=== PATIENT | female | born 1950 | race Caucasian/White ===

== ENCOUNTER 2017-02-11 13:02 | Inpatient (IN) ==
--- NOTE | 2017-02-10 21:40 | Discharge Summary ---
<Ivelisse Washington L - Last Filed: 02/10/17 21:35> - Discharge Diagnosis (1) Arthritis of knee, right Priority: Primary Status: Acute (2) HTN (hypertension) Priority: Secondary Status: Chronic Qualifiers: Hypertension type: essential hypertension Qualified Code(s): I10 - Essential (primary) hypertension (3) Chronic pain Priority: Secondary Status: Chronic Comments: Will Continue Percocet 7.5/325 TID - LD 02/02/17 #90 Qualifiers: Chronic pain type: chronic pain syndrome Qualified Code(s): G89.4 - Chronic pain syndrome (4) Fibromyalgia Priority: Secondary Status: Chronic (5) HLD (hyperlipidemia) Priority: Secondary Status: Chronic Qualifiers: Hyperlipidemia type: unspecified Qualified Code(s): E78.5 - Hyperlipidemia , unspecified - Discharge Medications Home Medications: Escitalopram [Lexapro] 20 mg PO DAILY 11/08/15 [History] Lisinopril [Zestril] 20 mg PO DAILY 11/08/15 [History] Calcium Carbonate/Vitamin D3 [Calcium 600-Vit D3 200 Tablet] 1 tab PO DAILY 09/16 [History] Diclofenac Sodium [Voltaren] 1 appl TP QID PRN 10/11/16 [History] Lansoprazole [Prevacid] 30 mg PO DAILY 10/11/16 [History] Lidocaine Patch [Lidoderm 5% patch] 1 each TP DAILY PRN 10/11/16 [History] Meloxicam 15 mg PO DAILY 10/11/16 [History] Wig054/Ferrous Fumarate/FA [Gs Vitamins Tablet] 1 tab PO DAILY [History] Ropinirole HCl [Requip] 0.5 mg PO HS 10/11/16 [History] Sucralfate [Carafate] 1 gm PO BID 10/11/16 [History] Aspirin Enteric Coated [Aspirin EC] 325 mg PO DAILY #21 tablet. 02/10/17 [Rx] OxyCODONE Immed Rel [Roxicodone 5 MG] 5 mg PO Q8HR PRN #21 tablet 02/10/17 [Rx] Celecoxib [Celebrex] 200 mg PO DAILY 02/11/17 [History] Ondansetron [Zofran] 4 mg PO Q8HR PRN 02/11/17 [History] OxyCODONE/APAP 7.5/325 [Percocet 7.5/325 MG] 1 each PO Q6HR PRN 02/11/17 [ History] Allergies/Adverse Reactions: Allergies meperidine [From Demerol] Adverse Reaction (Verified 02/11/17 14:02) Nausea states ok when taken with phenergan Primary care physician: Abi Bustillo, - Patient Status Disposition: Home, Self-Care Condition: Good - Discharge Instructions Follow Up With: Moe Landrum MD [Partnered Physician] - 03/12/17 10:20 am Abi Bustillo MD [Primary Care Provider] - 02/28/17 3:45 pm Ivelisse Washington PAC [Physician Archivist] - 02/21/17 3:00 pm - Hospital Course Hospital course: Ms. Reyes is a 66 year old female - Time Spent with Patient Total time spent providing and/or coordinating discharge services: <Moe Landrum - Last Filed: 02/13/17 06:34> Date of Encounter: 02/13/17 Time of Encounter: 06:33 - Discharge Diagnosis (1) Arthritis of knee, right Priority: Primary Status: Acute (2) Chronic pain Priority: Secondary Status: Chronic Qualifiers: Chronic pain type: chronic pain syndrome Qualified Code(s): G89.4 - Chronic pain syndrome (3) Fibromyalgia Priority: Secondary Status: Chronic (4) HLD (hyperlipidemia) Priority: Secondary Status: Chronic Qualifiers: Hyperlipidemia type: unspecified Qualified Code(s): E78.5 - Hyperlipidemia , unspecified (5) HTN (hypertension) Priority: Secondary Status: Chronic Qualifiers: Hypertension type: essential hypertension Qualified Code(s): I10 - Essential (primary) hypertension (6) Acute blood loss anemia Priority: Primary Status: Acute Primary care physician: Abi Bustillo, - Patient Status Functional capacity at discharge: uses cane/walker Overall status at discharge: patient is progressing back to baseline - Hospital Course Hospital course: Ms. Reyes is a 66 year old female uneventful post op course antibiotics and PT dc on asa dvt prophylaxis, hb 7.6 recieved 1 unit prbc prior to dc - Time Spent with Patient Total time spent providing and/or coordinating discharge services:
[2017-02-11] MEDS ORDERED: CeFAZolin Pre 2,000 MG/100 ML 2,000 MG/100 ML BAG IVPB ONE (13:31)
[2017-02-11] MEDS ORDERED: Albuterol 2.5 MG/3 ML NEBULIZER IH ONE (13:31)
[2017-02-11] MEDS ORDERED: Famotidine 20 MG/2 ML VIAL IVP ONE (13:32)
[2017-02-11] MEDS ORDERED: *HR* Midazolam HCl 2 MG/2 ML VIAL ONE (13:34)
[2017-02-11] MEDS ORDERED: *HR* FentaNYL (PF) 100 MCG/2 ML VIAL ONE (13:34)
[2017-02-11] MEDS ORDERED: *HR* Propofol 200 MG/20 ML VIAL IVP ONE ×2 (13:35→15:31)
[2017-02-11] MEDS ORDERED: Lidocaine -MPF 2% 2 ML VIAL ONE (13:36)
[2017-02-11] MEDS ORDERED: Ringers Solution, Lactated 1,000 ML IVC SCH ×2 (13:45→17:50)
--- NOTE | 2017-02-11 13:46 | History & Physical Report ---
Date of Encounter: 02/11/17 Time of Encounter: 13:46 24 Hour HP Update - Instructions Instructions: If the History and Physical is less than 30 days old and was completed prior to A.M. admission and or procedure and has NOT been updated on calendar day of procedure please complete this update prior to performing procedure. - Update Patient reports changes in Medical Condition: No Changes in assessment/condition: No Changes in Medication: No Preop tests/diagnostics Reviewed: Yes Surgery Remains Indicated: Yes Consent for Planned Operative Procedure(s) Verified: Yes - Pre-Operative Checklist Preoperative Checklist Indicated: No Prophylactic Antibiotic Ordered: Yes Is VTE Prophylaxis Indicated?: Yes
--- NOTE | 2017-02-11 14:08 | Anesthesia Evaluation PreOp ---
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: Denies Any Significant HX Other Medical History: Denies Any Significant HX Anesthesia History: No Prior Anesthetic Complications, Problems (Had bronchospasm 8 hours post op) : No Alcohol Use: none Drug use: none Medications and Allergies Escitalopram [Lexapro] 20 mg PO DAILY 11/08/15 [History] Lisinopril [Zestril] 20 mg PO DAILY 11/08/15 [History] Ondansetron [Zofran] 4 mg PO Q8HR #16 tablet 11/08/15 [Rx] Calcium Carbonate/Vitamin D3 [Calcium 600-Vit D3 200 Tablet] 1 tab PO DAILY 09/16 [History] Diclofenac Sodium [Voltaren] 1 appl TP QID PRN 10/11/16 [History] Lansoprazole [Prevacid] 30 mg PO DAILY 10/11/16 [History] Lidocaine Patch [Lidoderm 5% patch] 1 each TP DAILY PRN 10/11/16 [History] Meloxicam 15 mg PO DAILY 10/11/16 [History] Lep129/Ferrous Fumarate/FA [Gs Vitamins Tablet] 1 tab PO DAILY [History] Ropinirole HCl [Requip] 0.5 mg PO HS 10/11/16 [History] Sucralfate [Carafate] 1 gm PO TID 10/11/16 [History] Aspirin Enteric Coated [Aspirin EC] 325 mg PO DAILY #21 tablet. 02/10/17 [Rx] OxyCODONE Immed Rel [Roxicodone 5 MG] 5 mg PO Q8HR PRN #21 tablet 02/10/17 [Rx] Allergies meperidine [From Demerol] Adverse Reaction (Verified 02/11/17 14:02) Nausea states ok when taken with phenergan - Meds/Allergy Pre-op Review Medications Reviewed: Yes Allergies Reviewed: Yes Beta Blockers on Current Med List: No Anesthesia Results - Labs Laboratory Tests 01/28/17 01/28/17 13:46 13:46 Hgb 10.2 L Hct 32.8 L Plt Count 231 Sodium 142 Potassium 4.2 BUN 17 Creatinine 0.71 - Imaging EKG: report reviewed (SR) Anesthesia Exam O2 Sat Height 1.7 m Height 1.7 m Height 1.7 m Weight 81.193 kg Weight 81.193 kg Weight 81.193 kg O2 Sat by Pulse Oximetry 99 O2 Sat by Pulse Oximetry 99 Vital Signs Temp Pulse Resp BP Pulse Ox 97.9 F 69 18 136/81 99 02/11/17 13:24 02/11/17 13:24 02/11/17 13:24 02/11/17 13:24 02/11/17 13:24 Height: 5'7 Weight: 179 lbs NPO (# of Hours): MN Pain Scale: 0 - HEENT Pupil (Motor): Pupils equal, EOMI Mallampati: II Teeth: Normal Oral Opening: Greater than 3 - GAS ENGINE PERFORMANCE ENGINEER LOC: Oriented GAS ENGINE PERFORMANCE ENGINEER Motor: Normal RUE, Normal LUE, Normal RLE, Normal LLE, Normal Face GAS ENGINE PERFORMANCE ENGINEER Sensory: Normal: RUE, LUE, RLE, LLE, Face - Cardiac Rhythm: Regular Murmur: None JVD: No Carotid Bruit: No - Pulmonary Breath Sounds: bilateral Clear Respiratory Effort: Symmetrical Anesthesia Assess/Plan ASA Score: 2 Modified Dover Scale for Level of Consciousness: Cooperative, oriented, and tranquil Anesthetic Plan: General, Regional (Discussed GA and RA, agrees to proceed) Monitoring Plan: Standard Monitors Recovery Plan: PACU
[2017-02-11] MEDS ORDERED: ROPIVACAINE HCL/PF 0.5% 30 ML VIAL ONE (14:15)
[2017-02-11] MEDS ORDERED: Tetracaine/PF 20 MG/2 ML AMPUL SPINA ONE (14:16)
[2017-02-11] MEDS ORDERED: *HR* Promethazine 25 MG/ML VIAL IVP PRN (14:37)
--- NOTE | 2017-02-11 14:37 | Anesthesia Procedures ---
Date of Encounter: 02/11/17 Time of Encounter: 14:35 Procedures: Anesthesia - Nerve Block Procedure Date: 02/11/17 Time: 14:35 Allergies/Adv Reactions: demerol Pre-op Diagnosis: right knee OA Surgical Procedure: right TKA Checklist: Correct Patient Identifier, Correct procedure, History checked Correct side: Right Blood Thinner: No Monitor Applied: EKG, BP, Pulse Oximetry Supplemental Oxygen via Nasal Cannula (L/min): 2 Sedation: Versed (mg): 2 Sedation: Fentanyl (mcg): 100 Indication: Post Op Analgesia Pre-op Neuro Deficits: No Block Type: Femoral, Other (ipack) Catheter placed: No Sterile Technique: Yes Ultrasound used: Yes Anatomy identified: Yes Visual spread of Local: Yes Neuro Stimulation: Yes (femoral only) Nerve Stimulator Range: 0.2 - 0.4 mA Blood on Needle Aspiration: No Smooth Injection of Local: Yes Pain with Injection of Local: No Prep: Chlorhexadine Needle: 22 x 50 mm Stimuplex, 21 x 100 mm Stimuplex Local: Tetracaine, Other (0.5% bupivacaine) Volume (cc): 60 Number of Attempts: 1 Complications: None/effective block Vitals: Vital Signs/O2 Sat/Glucose, Most Recent Temp Pulse Resp BP Pulse Ox 97.9 F 79 14 141/72 100 02/11/17 13:53 02/11/17 14:34 02/11/17 14:34 02/11/17 14:34 02/11/17 14:34
[2017-02-11] MEDS ORDERED: Ondansetron 4 MG/2 ML VIAL ONE (15:15)
[2017-02-11] MEDS ORDERED: Dexamethasone 4 MG/ML VIAL ONE (15:15)
--- NOTE | 2017-02-11 15:48 | Orthopedic Operative Note ---
Date of procedure: 02/11/17 Pre-op diagnosis: Right knee arthritis Post-op diagnosis: same Procedure: Procedure: Right Total knee replacement Estimated blood loss: 200 cc Hardware: Arthrex Femur: 4 Tibia: 3 PS insert: 10 Patella: 34 Exam Under anesthesia: Full flexion, full extension, no instability Procedural Notes: Grade 4 arthritic changes medial compartment patellofemoral joint. Osteoporotic bone Operative procedure: The patient was brought to the operating room and placed on the operating room table. After general anesthesia was administered the operative knee was examined. Findings were noted in the exam under anesthesia. The operative extremity was prepped and draped in sterile surgical fashion. The patient received IV antibiotics prior to skin incision. A standard midline incision was made centered over the patella. The incision was made through the skin and subcutaneous tissue. A medial parapatellar tendon approach was performed. Care was taken to preserve tissue along the medial aspect of the patella. And to protect the patella tendon. The deep MCL was released off the medial tibia. The infra patella fat pad was excised. Knee was brought into flexion. Patient noted to have grade 4 arthritic changes medial compartment patellofemoral joint. The entry hole was made for the intramedullary femoral guide. The guide was seated in 6 degrees of valgus. Anterior cut was made followed by the distal cut. The ACL the PCL the medial and the lateral menisci were excised. The tibia was subluxed forward. The entry hole was made for the intramedullary tibial guide. Guide was seated to resect 2 mm off the more abnormal side. The knee was brought into flexion the distal femur was sized. Sized to a 4. The femoral guide was seated, the anterior cut was made followed by the posterior condylar cut, followed by the chamfer cuts. The finishing guide was seated the box cut was made and the lug holes were drilled. The tibia was sized to a 3, patient noted to have osteoporotic bone, the tibial tray was seated and prepared with the large drill followed by the fin cutter. Trial reduction revealed full extension no varus valgus instability with the appropriate 10 PS Muna. The patella was everted and cut was made at the level of the insertion of the quadriceps and patella tendon. The patella was sized 34 the guide was seated and the lug holes are drilled. Trial reduction revealed excellent patella tracking. All trial components were removed all bony surfaces were irrigated. The tibia was cemented first followed by the femur. The 10 PS Muna was seated and the knee was brought into full extension. The patella was cemented and held in place with the patellar holding clamp. After the cement had hardened, the knee sat for 2 minutes with a Betadine saline solution. The knee was then irrigated out with 2 L of pulse irrigation. The extensor mechanism was closed with #2 FiberWire suture and #2 PDS suture. The subcutaneous tissue was then irrigated and closed deep with #1 PDS suture superficially with 0 PDS suture and skin was closed with skin kim. The patient was then placed in a sterile dressing and a postoperative brace extubated and transferred to recovery room in stable condition. Anesthesia: MIKEY Surgeon: Moe Landrum Manager Room: Ivelisse Washington Condition: stable Disposition: PACU
[2017-02-11] MEDS ORDERED: Ketorolac 30 MG/ML VIAL ONE (15:57)
[2017-02-11] MEDS ORDERED: *HR* Labetalol 20 MG/4 ML SYRINGE IVP ONE (16:02)
[2017-02-11] MEDS: *HR* HYDROmorphone (PF) 1 MG/ML SYRINGE IVP PRN ×4 (16:28→20:16)
[2017-02-11] MEDS ORDERED: *HR* Morphine 10 MG/ML VIAL ONE ×2 (16:35→16:43)
[2017-02-11] MEDS ORDERED: *HR* HYDROmorphone 2 MG/ML SYRINGE ONE (16:36)
[2017-02-11 16:44] LABS: Hemoglobin 9.2 g/dL (11.5-15.4)
[2017-02-11] MEDS ORDERED: *HR* HYDROmorphone (PF) 1 MG/ML SYRINGE ONE (16:48)
--- NOTE | 2017-02-11 17:46 | Anesthesia Evaluation Post Op ---
Date of Encounter: 02/11/17 Time of Encounter: 17:45 - Vital Signs Vital Signs: Vital Signs/O2 Sat, Most Current Temp Pulse Resp BP Pulse Ox 97.8 F 76 16 137/63 99 02/11/17 17:15 02/11/17 17:35 02/11/17 17:35 02/11/17 17:35 02/11/17 17:35 - Lungs Lungs: Clear Ascult./Percussion - Airway Airway: Non-obstructed - Cardiovascular Regular Rate - Mental Status Mental Status: Alert & Oriented, Answers Appropriately - Pain Pain Scale: 0 Pain Scale used: Numeric (1 - 10) - Nausea Vomiting Nausea Vomiting: Not Present - Hydration Hydration: Ice chips, Has not voided - Discharge PostOp Status: Transfer Patient to floor
[2017-02-11] MEDS ORDERED: Acetaminophen 325 MG TABLET PO PRN (17:50)
[2017-02-11] MEDS ORDERED: Temazepam 15 MG CAPSULE PO PRN (17:50)
[2017-02-11] MEDS ORDERED: ceFAZolin 2,000 MG in D5% in Water 100 ML IVPB SCH (17:50)
[2017-02-11] MEDS ORDERED: *HR* OxyCODONE Immed Rel 5 MG TABLET PO PRN (17:50)
[2017-02-11] MEDS ORDERED: MOM Conc 10 ML UD.LIQ PO PRN (17:50)
[2017-02-11] MEDS ORDERED: Ondansetron 4 MG/2 ML VIAL IVP PRN (17:50)
[2017-02-11] MEDS ORDERED: Naloxone 0.4 MG/ML INJ IVP PRN (17:50)
[2017-02-11] MEDS ORDERED: Sennosides 8.6 MG TABLET PO PRN (17:50)
[2017-02-11] MEDS ORDERED: *HR* Enoxaparin 30 MG/0.3 ML SYRINGE SQ SCH (18:00)
[2017-02-11] MEDS: *HR* OxyCODONE Immed Rel 5 MG TABLET PO PRN ×2 (18:29→23:32)
[2017-02-11] MEDS: *HR* Enoxaparin 30 MG/0.3 ML SYRINGE SQ SCH (18:29)
[2017-02-11] MEDS: rOPINIRole 0.25 MG TABLET PO SCH (20:15)
[2017-02-11] MEDS: ceFAZolin 2,000 MG in D5% in Water 100 ML IVPB SCH (20:15)
[2017-02-11] MEDS: Sucralfate 1 GM TABLET PO SCH (20:16)
[2017-02-12] MEDS: *HR* HYDROmorphone (PF) 1 MG/ML SYRINGE IVP PRN ×8 (02:59→23:32)
[2017-02-12 05:09] LABS: Hematocrit 27.8 % (35.3-44.9); Hemoglobin 8.5 g/dL (11.5-15.4)
[2017-02-12 05:21] LABS: BUN/Creatinine Ratio 30 (6-26); Blood Urea Nitrogen 20 mg/dL (7-20); Calcium 8.6 mg/dL (8.6-10.8); Carbon Dioxide 25 mEq/L (19-29); Chloride 105 mEq/L (98-109); Glucose 125 mg/dL (70-99); Osmolality,Calculated 290 (280-300); Potassium 4.5 mEq/L (3.5-4.5); Sodium 138 mEq/L (136-145); eGFR For African Americans > 60 (> 60); eGFR For Non-African Americans > 60 (> 60)
[2017-02-12] MEDS: *HR* Enoxaparin 30 MG/0.3 ML SYRINGE SQ SCH ×2 (05:40→17:23)
[2017-02-12] MEDS: *HR* OxyCODONE Immed Rel 5 MG TABLET PO PRN ×5 (05:43→20:27)
[2017-02-12] MEDS: ceFAZolin 2,000 MG in D5% in Water 100 ML IVPB SCH (05:44)
--- NOTE | 2017-02-12 06:40 | Orthopedics Progress Note ---
Date of Encounter: 02/12/17 Time of Encounter: 06:39 - Assessment and Plan (1) Arthritis of knee, right Current Visit: Yes Status: Acute (2) Chronic pain Current Visit: Yes Status: Chronic Qualifiers: Chronic pain type: chronic pain syndrome Qualified Code(s): G89.4 - Chronic pain syndrome (3) Fibromyalgia Current Visit: Yes Status: Chronic (4) HLD (hyperlipidemia) Current Visit: Yes Status: Chronic Qualifiers: Hyperlipidemia type: unspecified Qualified Code(s): E78.5 - Hyperlipidemia , unspecified (5) HTN (hypertension) Current Visit: Yes Status: Chronic Qualifiers: Hypertension type: essential hypertension Qualified Code(s): I10 - Essential (primary) hypertension Subjective Interval history: patient doing well no complaints afvss operative extremity dressing c/d/i calves nt NVI continue with postop care hct 27 Objective Vital signs: Vital Signs Temp Pulse Resp BP Pulse Ox 02/12/17 04:10 98.4 F 66 18 101/60 94 L 02/11/17 23:22 97.7 F 65 104/62 100 02/11/17 21:00 97.8 F 70 15 99/65 95 02/11/17 20:05 98.2 F 78 15 121/76 94 L 02/11/17 19:01 97.7 F 85 12 122/74 96 02/11/17 18:33 97.7 F 89 13 113/43 96 02/11/17 17:57 95 02/11/17 17:50 97.7 F 85 14 131/71 98 02/11/17 17:35 76 16 137/63 99 02/11/17 17:25 82 16 134/79 99 02/11/17 17:15 97.8 F 62 16 123/64 100 02/11/17 17:05 72 20 125/61 100 02/11/17 16:55 65 20 150/72 99 02/11/17 16:45 97.6 F 80 20 137/89 97 02/11/17 16:35 86 20 138/87 95 02/11/17 16:25 85 20 144/83 92 L 02/11/17 16:15 97.8 F 66 16 151/78 92 L 02/11/17 14:50 79 130/67 100 02/11/17 14:34 79 14 141/72 100 02/11/17 14:22 70 16 130/72 98 02/11/17 13:53 97.9 F 69 18 136/81 99 02/11/17 13:24 97.9 F 69 18 136/81 99 Intake and Output 02/11/17 02/11/17 02/12/17 15:59 23:59 07:59 Intake Total 100 / 100 Output Total 300 / 300 300 / 300 Balance -200 / -200 -300 / -300 Intake: IV Fluids 100 / 100 Ancef 2,000 MG In 100 / 100 Dextrose 5% 100 ML @ 200 mls/hr IVPB Q8H [facility] Rx#: [id number] Output: Urine 300 / 300 Estimated Blood Loss 300 / 300 Other: Weight 81.193 kg - Labs CBC & BMP: 02/12/17 04:43 02/12/17 04:43 Labs: Abnormal lab results Hgb 8.5 g/dL (11.5-15.4) L 02/12/17 04:43 Hct 27.8 % (35.3-44.9) L 02/12/17 04:43 BUN/Creatinine Ratio 30 (6-26) H 02/12/17 04:43 Glucose 125 mg/dL (70-99) H 02/12/17 04:43 - VTE Documentation of Mechanical Device: Venous foot pump, device Consult Discharge Plan - Plan Referrals: Abi Bustillo MD [Primary Care Provider] -
[2017-02-12] MEDS: Sucralfate 1 GM TABLET PO SCH ×2 (08:48→20:27)
[2017-02-12] MEDS: Prenatal Vit/FA 1 EACH TABLET PO SCH (08:48)
[2017-02-12] MEDS: CALCIUM CARBONATE PO SCH (08:49)
[2017-02-12] MEDS: Lisinopril 20 MG TABLET PO SCH (08:49)
[2017-02-12] MEDS: Celecoxib 200 MG CAPSULE PO SCH (08:49)
[2017-02-12] MEDS: VITAMIN D3 PO SCH (08:49)
[2017-02-12] MEDS: rOPINIRole 0.25 MG TABLET PO SCH (20:27)
[2017-02-13] MEDS: *HR* OxyCODONE Immed Rel 5 MG TABLET PO PRN ×4 (00:38→13:31)
[2017-02-13] MEDS: *HR* HYDROmorphone (PF) 1 MG/ML SYRINGE IVP PRN ×3 (02:34→08:14)
[2017-02-13] MEDS: *HR* Enoxaparin 30 MG/0.3 ML SYRINGE SQ SCH (06:06)
[2017-02-13 06:26] LABS: Hematocrit 24.5 % (35.3-44.9); Hemoglobin 7.6 g/dL (11.5-15.4)
[2017-02-13] MEDS ORDERED: Furosemide 20 MG/2 ML VIAL IVP ONE (06:33)
--- NOTE | 2017-02-13 06:35 | Orthopedics Progress Note ---
Date of Encounter: 02/13/17 Time of Encounter: 06:34 - Assessment and Plan (1) Arthritis of knee, right Current Visit: Yes Status: Acute (2) Chronic pain Current Visit: Yes Status: Chronic Qualifiers: Chronic pain type: chronic pain syndrome Qualified Code(s): G89.4 - Chronic pain syndrome (3) Fibromyalgia Current Visit: Yes Status: Chronic (4) HLD (hyperlipidemia) Current Visit: Yes Status: Chronic Qualifiers: Hyperlipidemia type: unspecified Qualified Code(s): E78.5 - Hyperlipidemia , unspecified (5) HTN (hypertension) Current Visit: Yes Status: Chronic Qualifiers: Hypertension type: essential hypertension Qualified Code(s): I10 - Essential (primary) hypertension (6) Acute blood loss anemia Current Visit: Yes Status: Acute Subjective Interval history: patient doing well no complaints afvss operative extremity dressing c/d/i calves nt NVI continue with postop care hct 24 1 unit prbc then dc home Objective Vital signs: Vital Signs Temp Pulse Resp BP Pulse Ox 02/13/17 04:00 99.5 F 93 17 126/71 93 L 02/12/17 23:49 99.7 F H 97 17 114/65 95 02/12/17 19:23 99.8 F H 93 15 124/65 96 02/12/17 14:44 99.6 F 83 18 109/60 96 02/12/17 11:26 98.8 F 65 16 92/53 97 02/12/17 06:36 98.8 F 80 18 107/67 95 Intake and Output 02/12/17 02/12/17 02/13/17 15:59 23:59 07:59 Intake Total 200 / 200 100 / 100 Output Total 400 / 400 600 / 600 Balance -200 / -200 -500 / -500 Intake: Oral 200 / 200 100 / 100 Output: Urine 400 / 400 600 / 600 Other: Meal Lunch Dinner Percent of Meal Consumed 50% 25% - Labs CBC & BMP: 02/13/17 05:55 02/12/17 04:43 Labs: Abnormal lab results Hgb 7.6 g/dL (11.5-15.4) L 02/13/17 05:55 Hct 24.5 % (35.3-44.9) L 02/13/17 05:55 BUN/Creatinine Ratio 30 (6-26) H 02/12/17 04:43 Glucose 125 mg/dL (70-99) H 02/12/17 04:43 - VTE Documentation of Mechanical Device: Venous foot pump, device Consult Discharge Plan - Plan Referrals: Moe Landrum MD [Partnered Physician] - 03/12/17 10:20 am Abi Bustillo MD [Primary Care Provider] - 02/28/17 3:45 pm Ivelisse Washington, PAC [Physician Industrial Ecologist] - 02/21/17 3:00 pm
[2017-02-13 06:42] LABS: BUN/Creatinine Ratio 25 (6-26); Blood Urea Nitrogen 15 mg/dL (7-20); Calcium 8.3 mg/dL (8.6-10.8); Carbon Dioxide 27 mEq/L (19-29); Chloride 103 mEq/L (98-109); Glucose 103 mg/dL (70-99); Osmolality,Calculated 285 (280-300); Potassium 3.8 mEq/L (3.5-4.5); Sodium 137 mEq/L (136-145); eGFR For African Americans > 60 (> 60); eGFR For Non-African Americans > 60 (> 60)
[2017-02-13] MEDS ORDERED: FLU VACC QS2016-17 36MOS UP/PF 0.5 ML SYRINGE IM ONE (08:18)
[2017-02-13] MEDS ORDERED: 0.9 % Sodium Chloride 250 ML ONE (08:41)
[2017-02-13] MEDS: Prenatal Vit/FA 1 EACH TABLET PO SCH (10:00)
[2017-02-13] MEDS: Lisinopril 20 MG TABLET PO SCH (10:00)
[2017-02-13] MEDS: Sucralfate 1 GM TABLET PO SCH (10:00)
[2017-02-13] MEDS: Celecoxib 200 MG CAPSULE PO SCH (10:00)
[2017-02-13] MEDS: VITAMIN D3 PO SCH (10:11)
[2017-02-13] MEDS: CALCIUM CARBONATE PO SCH (10:11)
[2017-02-13 12:28] VITALS: BP 124/64
== END 2017-02-13 16:35 | disposition home or self-care (01) | DRG 470 ==
LOC: SAMDAY 13:02 → 3NENU 17:40
PROVIDERS: ADMIT Orthopaedic Surgery; ATTEND Orthopaedic Surgery

== ENCOUNTER 2017-04-27 05:39 | Inpatient (IN) ==
--- NOTE | 2017-04-27 07:08 | Orthopedic Consult Note ---
Date of Encounter: 04/27/17 Time of Encounter: 07:06 History of Present Illness HPI: Ms. Reyes is a 66 year old female Patient is well-known to me, had a knee manipulation yesterday with a femoral block. Patient's manipulation was uneventful and she was discharged from same day surgery. Patient reports that her foot was still numb and the block was still working when she got this morning at about 1:30 AM. Patient states that she felt the knee give and she rotated, she did not have her brace on. Resulting in significant pain. Patient seen in particular with a long oblique fracture of the right distal femur. Physical exam Alert and oriented 3 No evidence of head trauma Right lower extremity Neurovascular intact Decreased range of motion secondary to pain X-rays show a long oblique fracture right distal femur. Recommendation open reduction internal fixation right femur. Plan is for surgery first case tomorrow morning. We discussed the risks benefits as well as recovery. Past Med Surg Social Fam HX - Past Medical History Medical history: GERD, hyperlipidemia, hypertension, other Psychiatric history: anxiety, depression - Past Surgical History Surgical History: appendectomy, cholecystectomy, hip replacement, knee replacement - Social History Smoking Status: Never smoker Smokeless Tobacco Status: No Alcohol use: none Drug use: none - Family History Mother Hx Family Cancer: Yes Medications and Allergies Escitalopram [Lexapro] 20 mg PO DAILY 11/08/15 [History] Lisinopril [Zestril] 20 mg PO DAILY 11/08/15 [History] Calcium Carbonate/Vitamin D3 [Calcium 600-Vit D3 200 Tablet] 1 tab PO DAILY 09/16 [History] Diclofenac Sodium [Voltaren] 1 appl TP QID PRN 10/11/16 [History] Lansoprazole [Prevacid] 30 mg PO DAILY 10/11/16 [History] Lidocaine Patch [Lidoderm 5% patch] 1 each TP DAILY PRN 10/11/16 [History] Meloxicam 15 mg PO DAILY 10/11/16 [History] Uzw977/Ferrous Fumarate/FA [Gs Vitamins Tablet] 1 tab PO DAILY [History] Ropinirole HCl [Requip] 0.5 mg PO HS 10/11/16 [History] Sucralfate [Carafate] 1 gm PO BID 10/11/16 [History] Celecoxib [Celebrex] 200 mg PO DAILY 02/11/17 [History] Ondansetron [Zofran] 4 mg PO Q8HR PRN 02/11/17 [History] OxyCODONE Immed Rel [Roxicodone 5 MG] 5 mg PO Q4HR PRN #24 tablet 04/25/17 [Rx] Allergies meperidine [From Demerol] Adverse Reaction (Verified 02/11/17 14:02) Nausea states ok when taken with phenergan All Systems Reviewed: A 10-system review of systems was performed and is negative for pertinent findings except as documented above in the HPI. Results - Labs Labs: All other labs normal. Consult Discharge Plan - Plan Referrals: NO,PCP [Primary Care Provider] -
[2017-04-27] MEDS ORDERED: Naloxone 0.4 MG/ML INJ IVP PRN (09:12)
[2017-04-27] MEDS ORDERED: *HR* Promethazine 25 MG/ML VIAL IVP PRN (09:12)
[2017-04-27] MEDS ORDERED: Acetaminophen 325 MG TABLET PO PRN (09:12)
[2017-04-27] MEDS ORDERED: *HR* OxyCODONE Immed Rel 5 MG TABLET PO PRN (09:12)
[2017-04-27] MEDS ORDERED: *HR* HYDROmorphone (PF) 1 MG/ML SYRINGE IVP PRN (09:12)
--- NOTE | 2017-04-27 09:20 | Internal Med History&Physical ---
Date of Encounter: 04/27/17 Time of Encounter: 09:18 Assessment and Plan (1) Femur fracture, right Current visit: No Status: Acute Secondary to mechanical fall Scheduled to have surgery tomorrow with Dr. Landrum IV fluids Hydromorphone for pain control Bed rest Omeprazole for GI prophylaxis and subcutaneous heparin for DVT prophylaxis. Patient is admitted as inpatient, expected to stay within 2 midnights. Full code. Time spent on this admission 40 minutes. High risk of falling Qualifiers: Femur location: shaft Fracture type: closed Fracture morphology: oblique Fracture alignment: displaced Fracture healing: with routine healing Qualified Code(s): S72.331D - Displaced oblique fracture of shaft of right femur , subsequent encounter for closed fracture with routine healing (2) History of duodenal ulcer Current visit: Yes Status: Acute Continue PPI (3) HTN (hypertension) Current visit: No Status: Chronic Stable Qualifiers: Hypertension type: essential hypertension Qualified Code(s): I10 - Essential (primary) hypertension (4) Fibromyalgia Current visit: No Status: Chronic (5) HLD (hyperlipidemia) Current visit: No Status: Chronic Stable Qualifiers: Hyperlipidemia type: unspecified Qualified Code(s): E78.5 - Hyperlipidemia , unspecified Internal Medicine - H&P: HPI Chief complaint: Right leg pain Admitted From: Emergency Dept History of present illness: Ms. Reyes is a 66 year old female with a past medical history of barrette's esophagus, GERD, hypertension, osteoarthritis, fibromyalgia who underwent yesterday and right knee manipulation with anesthesia, she says she received a sciatic and femoral blockage to perform the procedure, went home and she was not used to be able to bend her knee, she says that her right leg gave out and fell on her hip. Immediately she experienced an 8 out of 10 type of pain on her thigh. X-ray shows an oblique fracture of the midshaft of the right femur. will operate tomorrow. The pain is tolerable when she does not move. Denies any other symptoms, denies any dizziness prior to this episode Past Med Surg Social Fam HX - Past Medical History Medical history: GERD, hyperlipidemia, hypertension, other (Depression, osteoarthritis, anemia, asthma, barrette's esophagus, duodenal ulcer, cataracts , fibromyalgia) Psychiatric history: anxiety, depression - Past Surgical History Surgical History: appendectomy, cholecystectomy, hip replacement (Bilateral), knee replacement (Right), other (Tubal ligation, bariatric surgery, epidural injection, Neesen surgery) - Social History Smoking Status: Never smoker Smokeless Tobacco Status: No Alcohol use: none Drug use: none - Family History Mother Hx Family Cancer: Yes - Additional Family History Additional family history: Father with CVA and myocardial infarction, mother with Parkinson's and tardive dyskinesia, paternal grandfather with melanoma Internal Medicine - H&P: Meds Escitalopram [Lexapro] 20 mg PO DAILY 11/08/15 [History] Lisinopril [Zestril] 20 mg PO DAILY 11/08/15 [History] Calcium Carbonate/Vitamin D3 [Calcium 600-Vit D3 200 Tablet] 1 tab PO DAILY 09/16 [History] Diclofenac Sodium [Voltaren] 1 appl TP QID PRN 10/11/16 [History] Lansoprazole [Prevacid] 30 mg PO DAILY 10/11/16 [History] Lidocaine Patch [Lidoderm 5% patch] 1 each TP DAILY PRN 10/11/16 [History] Meloxicam 15 mg PO DAILY 10/11/16 [History] [id number]/Ferrous Fumarate/FA [Gs Vitamins Tablet] 1 tab PO DAILY [History] Ropinirole HCl [Requip] 0.5 mg PO HS 10/11/16 [History] Sucralfate [Carafate] 1 gm PO BID 10/11/16 [History] Celecoxib [Celebrex] 200 mg PO DAILY 02/11/17 [History] Ondansetron [Zofran] 4 mg PO Q8HR PRN 02/11/17 [History] OxyCODONE Immed Rel [Roxicodone 5 MG] 5 mg PO Q4HR PRN #24 tablet 04/25/17 [Rx] Allergies meperidine [From Demerol] Adverse Reaction (Verified 02/11/17 14:02) Nausea states ok when taken with phenergan All Systems PM: A 10-system review of systems was performed and is negative for pertinent findings except as documented above in the HPI. Review of systems: Complaints of severe pain on her right thigh. Other systems out of the 10 reviewed were negative - Constitutional Vitals: Temp Pulse Resp BP Pulse Ox 97.9 F 69 18 119/65 95 04/27/17 07:00 04/27/17 07:00 04/27/17 07:00 04/27/17 07:00 04/27/17 07:00 General appearance: Present: A&O X 3 - Head Head exam: Present: atraumatic, normocephalic - Eye Eye exam: Present: PERRL, conjuntiva pink, sclera anicteric Pupils: Present: PERRL - Neck Neck exam general surgery: Present: supple, trachea midline. Absent: lymphadenopathy - Respiratory Respiratory exam: Present: CTAB. Absent: accessory muscle use, rales, rhonchi, wheezes - Cardiovascular Cardiovascular exam: Present: RRR, +S1, +S2. Absent: diastolic murmur, gallop, rubs, systolic murmur - GI/Abdominal GI/Abdominal exam: Present: normal bowel sounds, soft, no peritoneal signs. Absent: distended, tenderness - Extremities Exam Extremities exam: Present: pedal edema (Swelling and tenderness on the right thigh, no hematomas), warm, radial pulses palpable and symetrical. Absent: calf tenderness, cyanotic - Neurological Exam Neurological exam: Present: CN II-XII intact, oriented X3, no focal deficits. Absent: pronater drift, facial droop, speech deficit - Skin Skin exam: Present: dry, intact
[2017-04-27] MEDS: 0.9 % Sodium Chloride 1,000 ML IVC SCH (10:02)
[2017-04-27] MEDS: *HR* Heparin 5,000 UNIT/ML VIAL SQ SCH ×3 (10:02→22:12)
[2017-04-27] MEDS: *HR* HYDROmorphone (PF) 1 MG/ML SYRINGE IVP PRN ×4 (13:01→20:24)
[2017-04-27] MEDS: *HR* OxyCODONE Immed Rel 5 MG TABLET PO PRN ×2 (15:12→22:12)
[2017-04-27] MEDS: Sucralfate 1 GM TABLET PO SCH (20:24)
[2017-04-27] MEDS ORDERED: rOPINIRole 0.25 MG TABLET PO SCH (21:00)
[2017-04-28] MEDS: *HR* HYDROmorphone (PF) 1 MG/ML SYRINGE IVP PRN ×9 (00:12→21:19)
[2017-04-28] MEDS: 0.9 % Sodium Chloride 1,000 ML IVC SCH (03:17)
[2017-04-28 05:00] LABS: Basophils % 0.5 %; Eosinophils % 0.5 %; Immature Granulocytes % 0.3 % (0-4); Lymphocytes # 1.9 K/mcL (0.6-4.6); Lymphocytes % 32.4 %; Mean Corpuscular HGB Conc 30.8 g/dL (31.6-35.5); Mean Corpuscular Volume 84.4 fL (83.0-100.0); Mean Platelet Volume 10.4 fL (9.4-12.4); Monocytes # 0.5 K/mcL (0.0-1.3); Monocytes % 8.7 %; Neutrophils # 3.4 K/mcL (1.6-8.9); Platelet Count 204 K/mcL (140-400); Red Blood Count 3.08 M/mcL (3.82-4.97); Red Cell Distribution Width 16.3 % (11.5-14.5); Segmented Neutrophils % 57.6 %
[2017-04-28 05:14] LABS: BUN/Creatinine Ratio 18 (6-26); Blood Urea Nitrogen 13 mg/dL (7-20); Carbon Dioxide 32 mEq/L (19-29); Chloride 104 mEq/L (98-109); Glucose 94 mg/dL (70-99); Osmolality,Calculated 292 (280-300); Potassium 3.8 mEq/L (3.5-4.5); Sodium 141 mEq/L (136-145); eGFR For African Americans > 60 (> 60); eGFR For Non-African Americans > 60 (> 60)
[2017-04-28] MEDS: *HR* OxyCODONE Immed Rel 5 MG TABLET PO PRN ×4 (05:17→23:47)
[2017-04-28] MEDS: *HR* Heparin 5,000 UNIT/ML VIAL SQ SCH ×3 (05:17→21:20)
--- NOTE | 2017-04-28 07:21 | Anesthesia Evaluation PreOp ---
Date of Encounter: 04/28/17 Time of Encounter: 07:19 - Past History Planned Operation: ORIF Cardiac History: HTN, Hyperlipidemia Pulmonary History: Asthma LANDING SCALER History: Denies Any Significant HX Other Medical History: Denies Any Significant HX, GERD Anesthesia History: No Prior Anesthetic Complications, Past Anesthesia (Right Knee Manip. Right TKA), Problems (Patient dstates Brochospasm 24 hrs post sx) : No Alcohol Use: none Drug use: none Medications and Allergies Escitalopram [Lexapro] 10 mg PO DAILY 11/08/15 [History] Lisinopril [Zestril] 20 mg PO DAILY 11/08/15 [History] Calcium Carbonate/Vitamin D3 [Calcium 600-Vit D3 200 Tablet] 1 tab PO DAILY 09/16 [History] Lansoprazole [Prevacid] 30 mg PO DAILY 10/11/16 [History] Uxm210/Ferrous Fumarate/FA [Gs Vitamins Tablet] 1 tab PO DAILY [History] Ropinirole HCl [Requip] 0.5 mg PO HS 10/11/16 [History] Celecoxib [Celebrex] 200 mg PO DAILY 02/11/17 [History] Ondansetron [Zofran] 4 mg PO Q8HR PRN 02/11/17 [History] OxyCODONE Immed Rel [Roxicodone 5 MG] 5 mg PO Q4HR PRN #24 tablet 04/25/17 [Rx] Allergies meperidine [From Demerol] Adverse Reaction (Verified 02/11/17 14:02) Nausea states ok when taken with phenergan - Meds/Allergy Pre-op Review Medications Reviewed: Yes Allergies Reviewed: Yes Beta Blockers on Current Med List: No Anesthesia Results - Labs 04/28/17 04:35 04/28/17 04:35 Anesthesia Exam O2 Sat Height 1.69 m Weight 78.1 kg Weight 78 kg O2 Sat by Pulse Oximetry 97 O2 Sat by Pulse Oximetry 99 O2 Sat by Pulse Oximetry 98 O2 Sat by Pulse Oximetry 99 O2 Sat by Pulse Oximetry 94 Vital Signs Temp Pulse Resp BP Pulse Ox 97.9 F 69 18 119/65 95 04/27/17 07:00 04/27/17 07:00 04/27/17 07:00 04/27/17 07:00 04/27/17 07:00 Vital Signs/O2 Sat, Most Current Temp Pulse Resp BP Pulse Ox 98.1 F 61 17 126/72 97 04/28/17 03:28 04/28/17 03:28 04/28/17 03:28 04/28/17 03:28 04/28/17 03:28 Height: 5'6'' Weight: 172# NPO (# of Hours): > 8 hrs Pain Scale: 0 Pain Scale Used: Numeric (1 - 10) - HEENT Pupil (Motor): Pupils equal, EOMI Mallampati: II Teeth: Missing Oral Opening: Greater than 3 - LANDING SCALER LOC: Oriented LANDING SCALER Motor: Normal RUE, Normal LUE, Normal RLE, Normal LLE, Normal Face LANDING SCALER Sensory: Normal: RUE, LUE, RLE, LLE, Face - Cardiac Rhythm: Regular Murmur: None JVD: No Carotid Bruit: No - Pulmonary Breath Sounds: bilateral Clear Anesthesia Assess/Plan ASA Score: 2 Modified Kalpana Scale for Level of Consciousness: Cooperative, oriented, and tranquil Anesthetic Plan: General Autologous Blood: Yes Monitoring Plan: Standard Monitors Recovery Plan: PACU
[2017-04-28] MEDS ORDERED: *HR* Labetalol 20 MG/4 ML SYRINGE IVP PRN (07:24)
[2017-04-28] MEDS ORDERED: *HR* Promethazine 25 MG/ML VIAL IVP PRN ×2 (07:24→10:53)
[2017-04-28] MEDS ORDERED: Ondansetron 4 MG/2 ML VIAL IVP ONE ×2 (07:24→10:53)
[2017-04-28] MEDS ORDERED: Albuterol 2.5 MG/3 ML NEBULIZER IH ONE ×2 (07:24→07:40)
[2017-04-28] MEDS ORDERED: *HR* HYDROmorphone (PF) 1 MG/ML SYRINGE IVP PRN (07:24)
[2017-04-28] MEDS ORDERED: *HR* Propofol 200 MG/20 ML VIAL IVP ONE (07:30)
[2017-04-28] MEDS ORDERED: *HR* Midazolam HCl 2 MG/2 ML VIAL ONE ×2 (07:30→10:17)
[2017-04-28] MEDS ORDERED: *HR* FentaNYL (PF) 100 MCG/2 ML VIAL ONE (07:30)
[2017-04-28] MEDS ORDERED: *HR* Rocuronium Bromide 50 MG/5 ML VIAL ONE (07:32)
[2017-04-28] MEDS ORDERED: Dexamethasone 4 MG/ML VIAL ONE (07:32)
[2017-04-28] MEDS ORDERED: Lidocaine -MPF 2% 2 ML VIAL ONE (07:32)
[2017-04-28] MEDS ORDERED: *HR* Succinylcholine 200 MG/10 ML VIAL IVP ONE (07:32)
[2017-04-28] MEDS ORDERED: Albuterol 2.5 MG/3 ML NEBULIZER ONE (07:40)
[2017-04-28] MEDS ORDERED: ceFAZolin 2,000 MG in D5% in Water 100 ML IVPB ONE (08:24)
[2017-04-28] MEDS ORDERED: Lisinopril 20 MG TABLET PO SCH (09:00)
[2017-04-28] MEDS ORDERED: VITAMIN D3 PO SCH (09:00)
[2017-04-28] MEDS ORDERED: CALCIUM CARBONATE PO SCH (09:00)
--- NOTE | 2017-04-28 09:39 | Orthopedic Operative Note ---
Date of procedure: 04/28/17 Pre-op diagnosis: Displaced comminuted oblique distal third femur fracture. Post-op diagnosis: same Procedure: Right open reduction internal fixation femur shaft fracture Estimated blood loss: 800 cc Hardware: Synthes 12 hole Cassandra articular distal femur plate, 1 4.5 cortical screws, 5 5.0 Locking screws,3 5.0 cannulated screws, one 7.3 cannulated screw. 3 super cables, 10 mL DBX Procedural Notes: Comminuted displaced oblique fracture distal femur proximal to femoral replacement. Operative procedure: The patient was brought to the operating room and placed on the operating room fracture table. The well leg was placed in the well leg owens, the fracture leg was placed in the fracture leg owens. After general anesthesia was administered the operative leg was prepped and draped in the sterile surgical fashion The patient received IV antibiotics prior to skin incision. A standard lateral approach was made to the femur the incision is made to the skin and subcutaneous tissue. Hemostasis was obtained with Bovie cautery. Using careful blunt dissection the tensor fascia was identified and incised along the length of the incision. The vastus lateralis was elevated up after the fascia was split closing the lateral femur and the fracture site. The fracture was significantly comminuted with 4 major pieces, and oblique. This also had a spiral component. The fractures reduced and held in place with bone holding forceps this was done under fluoroscopic assistance. Preliminary fixation was achieved with 3 super cables which were passed subperiosteally. These were also confirmed to be well positioned with a good reduction with fluoroscopy. A Synthes 12 hole periarticular distal femoral plate was approximated to the lateral femur. Position was confirmed with fluoroscopy. It was fixed first distally in compression with a 7.3 compression screw then augmented with 3 5.0 cannulated screws. Proximally the plate was fixed in compression to the proximal fragment with one 4.5 compression screw fixation was then completed with 5 5.0 locking screws. The plate overlapped the femoral replacement from her total hip replacement. Position of hardware as well as fracture reduction was found to be septal with fluoroscopic assistance. The wound was irrigated with pulse irrigation. 10 mL of DBX was placed around the fracture site. 2 loose fragments were secured with #5 FiberWire cerclage fixation sutures. The tensor fascia was closed with running #2 PDS suture subcutaneous tissues irrigated and closed deep #1 PDS suture superficially with 0 monocril suture. Skin was closed with skin kim. The patient was placed in a sterile dressing, and stop her brace The patient was extubated, and then transferred to the recovery room in stable condition. Anesthesia: GETA Surgeon: Moe Landrum Condition: stable Disposition: PACU
[2017-04-28] MEDS ORDERED: *HR* Midazolam HCl 2 MG/2 ML VIAL IVP PRN (10:13)
[2017-04-28] MEDS: Sucralfate 1 GM TABLET PO SCH ×2 (10:37→21:19)
[2017-04-28] MEDS ORDERED: 0.9 % Sodium Chloride 1,000 ML IVC SCH (10:53)
[2017-04-28] MEDS ORDERED: Naloxone 0.4 MG/ML INJ IVP PRN (10:53)
[2017-04-28] MEDS ORDERED: Acetaminophen 325 MG TABLET PO PRN (10:53)
[2017-04-28] MEDS ORDERED: *HR* OxyCODONE Immed Rel 5 MG TABLET PO PRN (10:53)
--- NOTE | 2017-04-28 10:58 | Anesthesia Evaluation Post Op ---
Date of Encounter: 04/28/17 Time of Encounter: 10:53 - Vital Signs Vital Signs: Vital Signs/O2 Sat, Most Current Temp Pulse Resp BP Pulse Ox 100.7 F H 78 20 153/82 97 04/28/17 10:40 04/28/17 10:40 04/28/17 10:40 04/28/17 10:40 04/28/17 10:40 - Lungs Lungs: Clear Ascult./Percussion - Airway Airway: Non-obstructed - Cardiovascular Regular Rate - Mental Status Mental Status: Alert & Oriented, Answers Appropriately - Pain Pain Scale: 1 Pain Scale used: Numeric (1 - 10) - Nausea Vomiting Nausea Vomiting: Not Present - Hydration Hydration: Tolerates oral liquids, Simental catheter - Discharge PostOp Status: Transfer Patient to floor
[2017-04-28 12:05] LABS: Hematocrit 25.4 % (35.3-44.9); Hemoglobin 7.8 g/dL (11.5-15.4)
[2017-04-28] MEDS: Prenatal Vit/FA 1 EACH TABLET PO SCH (12:18)
[2017-04-28] MEDS ORDERED: Furosemide 20 MG/2 ML VIAL IVP ONE (14:30)
--- NOTE | 2017-04-28 15:29 | Internal Med Progress Note ---
Date of Encounter: 04/28/17 Time of Encounter: 15:00 - Assessment and plan (1) DVT prophylaxis Current Visit: Yes Status: Acute Assessment and plan: Heparin subcutaneously (2) HTN (hypertension) Current Visit: No Status: Chronic Assessment and plan: Continue home medication Qualifiers: Hypertension type: essential hypertension Qualified Code(s): I10 - Essential (primary) hypertension (3) Acute blood loss anemia Current Visit: No Status: Acute Assessment and plan: Patient has 2 major surgeries recently. Anemia possibly due to surgery blood loss. On transfusion right now. (4) Femur fracture, right Current Visit: No Status: Acute Assessment and plan: S/P surgery. Pain management. PTOT. DVT prophylaxis. Plan for rehabilitation discharge. Qualifiers: Femur location: shaft Fracture type: closed Fracture morphology: oblique Fracture alignment: displaced Fracture healing: with routine healing Qualified Code(s): S72.331D - Displaced oblique fracture of shaft of right femur , subsequent encounter for closed fracture with routine healing - Time Spent With Patient 25 - 35 minutes - Subjective Interval history: Patient is a 66-year-old female admitted for right femoral fracture. Past medical history is significant for hypertension, hyperlipidemia, depression, anemia, asthma, GERD Patient was seen and examined after she had surgery today. She has minimal pain , controlled by pain medication. No other complaint. Hemoglobin is low, 2 units of PRBC ordered by orthopedic doctor. Vitals are stable. Continue close monitoring. PTOT. - Constitutional Vitals: Temp Pulse Resp BP Pulse Ox 98.5 F 95 16 128/67 96 04/28/17 10:56 04/28/17 14:33 04/28/17 14:33 04/28/17 14:33 04/28/17 14:33 General appearance: Present: A&O X 3, pleasant, no acute distress, answers questions appropriately - Head Head exam: Present: atraumatic, normocephalic - Eye Eye exam: Present: PERRL, conjuntiva pink, sclera anicteric Pupils: Present: PERRL - Neck Neck exam general surgery: Present: supple, trachea midline. Absent: lymphadenopathy - Respiratory Respiratory exam: Present: CTAB. Absent: accessory muscle use, rales, rhonchi, wheezes - Cardiovascular Cardiovascular exam: Present: RRR, +S1, +S2. Absent: diastolic murmur, gallop, rubs, systolic murmur - GI/Abdominal GI/Abdominal exam: Present: normal bowel sounds, soft, no peritoneal signs. Absent: distended, tenderness - Extremities Exam Extremities exam: Present: warm, radial pulses palpable and symetrical. Absent : calf tenderness, cyanotic, pedal edema Additional comments: Right leg S/P surgery. In cast - Neurological Exam Neurological exam: Present: CN II-XII intact, oriented X3, no focal deficits. Absent: pronater drift, facial droop, speech deficit - Skin Skin exam: Present: dry, intact Internal Medicine: Result - Labs CBC & Chem 7: 04/28/17 11:41 04/28/17 04:35 Labs: Short CBC 04/28/17 04/28/17 Range/Units 04:35 11:41 WBC 5.9 (4.3-11.1) K/mcL Hgb 8.0 L 7.8 L (11.5-15.4) g/dL Hct 26.0 L 25.4 L (35.3-44.9) % Plt Count 204 (140-400) K/mcL Neutrophils # 3.4 (1.6-8.9) K/mcL BMP 04/28/17 04:35 Sodium 141 Potassium 3.8 Chloride 104 Carbon Dioxide 32 H BUN 13 Creatinine 0.71 Glucose 94 Calcium 9.0 - Impressions Impressions Femur X-Ray 04/28/17 07:44 IMPRESSION: Improved alignment of the right femur fracture status post ORIF. D/ / 04/28/2017 10:31:57 Benton Machado MD / chela Interpreting Provider: Benton Machado MD Fluoroscopy 04/28/17 09:43 IMPRESSION: Intraprocedural fluoroscopic spot images as above. See separate procedure report for more information. D/ / 04/28/2017 09:57:12 Merrick Francois MD / chela Interpreting Provider: Merrick Francois MD Femur X-Ray 04/28/17 09:44 IMPRESSION: Intraprocedural fluoroscopic spot images as above. See separate procedure report for more information. D/ / 04/28/2017 09:57:12 Merrick Francois MD / chela Interpreting Provider: Merrick Francois MD Consult Discharge Plan - Plan Referrals: NO,PCP [Primary Care Provider] -
[2017-04-28] MEDS: ceFAZolin 2,000 MG in D5% in Water 100 ML IVPB SCH ×2 (16:33→23:47)
[2017-04-28] MEDS ORDERED: 0.9 % Sodium Chloride 250 ML ONE ×2 (19:02→22:36)
[2017-04-28] MEDS: rOPINIRole 0.25 MG TABLET PO SCH (21:20)
[2017-04-29] MEDS: *HR* HYDROmorphone (PF) 1 MG/ML SYRINGE IVP PRN ×4 (03:06→20:07)
[2017-04-29] MEDS: *HR* OxyCODONE Immed Rel 5 MG TABLET PO PRN ×4 (05:47→23:05)
[2017-04-29] MEDS: *HR* Heparin 5,000 UNIT/ML VIAL SQ SCH (05:48)
[2017-04-29 07:40] LABS: Basophils % 0.5 %; Eosinophils % 0.2 %; Hemoglobin 9.2 g/dL (11.5-15.4); Immature Granulocytes % 0.5 % (0-4); Lymphocytes # 1.7 K/mcL (0.6-4.6); Mean Corpuscular HGB Conc 31.7 g/dL (31.6-35.5); Mean Corpuscular Hemoglobin 26.9 pg (28.0-33.3); Mean Corpuscular Volume 84.8 fL (83.0-100.0); Mean Platelet Volume 10.1 fL (9.4-12.4); Monocytes # 0.8 K/mcL (0.0-1.3); Monocytes % 13.7 %; Neutrophils # 3.4 K/mcL (1.6-8.9); Platelet Count 168 K/mcL (140-400); Red Blood Count 3.42 M/mcL (3.82-4.97); Red Cell Distribution Width 15.8 % (11.5-14.5); Segmented Neutrophils % 57.1 %
[2017-04-29 07:48] LABS: BUN/Creatinine Ratio 21 (6-26); Blood Urea Nitrogen 15 mg/dL (7-20); Calcium 9.1 mg/dL (8.6-10.8); Carbon Dioxide 32 mEq/L (19-29); Chloride 101 mEq/L (98-109); Glucose 103 mg/dL (70-99); Osmolality,Calculated 291 (280-300); Potassium 3.5 mEq/L (3.5-4.5); Sodium 140 mEq/L (136-145); eGFR For African Americans > 60 (> 60); eGFR For Non-African Americans > 60 (> 60)
[2017-04-29] MEDS: Prenatal Vit/FA 1 EACH TABLET PO SCH (08:53)
[2017-04-29] MEDS: CALCIUM 600 MG PO SCH (08:54)
[2017-04-29] MEDS: CHOLECALCIFEROL PO SCH (08:54)
[2017-04-29] MEDS: Sucralfate 1 GM TABLET PO SCH ×2 (08:54→20:08)
[2017-04-29] MEDS: Lisinopril 20 MG TABLET PO SCH ×2 (11:09→11:23)
--- NOTE | 2017-04-29 14:36 | Internal Med Progress Note ---
Date of Encounter: 04/29/17 Time of Encounter: 10:00 - Assessment and plan (1) DVT prophylaxis Current Visit: Yes Status: Acute Assessment and plan: Lovenox subcutaneously (2) HTN (hypertension) Current Visit: No Status: Chronic Assessment and plan: Continue home medication Qualifiers: Hypertension type: essential hypertension Qualified Code(s): I10 - Essential (primary) hypertension (3) Acute blood loss anemia Current Visit: No Status: Acute Assessment and plan: Patient has 2 major surgeries recently. Anemia possibly due to surgery blood loss. Hemoglobin improved after transfusion. (4) Femur fracture, right Current Visit: No Status: Acute Assessment and plan: S/P surgery. Pain management. PTOT. DVT prophylaxis. Plan for rehabilitation discharge. Qualifiers: Femur location: shaft Fracture type: closed Fracture morphology: oblique Fracture alignment: displaced Fracture healing: with routine healing Qualified Code(s): S72.331D - Displaced oblique fracture of shaft of right femur , subsequent encounter for closed fracture with routine healing - Time Spent With Patient 25 - 35 minutes - Subjective Interval history: Patient is a 66-year-old female admitted for right femoral fracture. Past medical history is significant for hypertension, hyperlipidemia, depression, anemia, asthma, GERD Patient was seen and examined. She had surgery POD# 1. She has minimal pain, controlled by pain medication. No other complaint. Hemoglobin improved after 2 units of PRBC transfusion. Vitals are stable. Continue close monitoring. PTOT. DVT prophylaxis. - Constitutional Vitals: Temp Pulse Resp BP Pulse Ox 98.5 F 74 17 105/63 95 04/29/17 11:14 04/29/17 11:14 04/29/17 11:14 04/29/17 12:56 04/29/17 11:14 General appearance: Present: A&O X 3, pleasant, no acute distress, answers questions appropriately - Head Head exam: Present: atraumatic, normocephalic - Eye Eye exam: Present: PERRL, conjuntiva pink, sclera anicteric Pupils: Present: PERRL - Neck Neck exam general surgery: Present: supple, trachea midline. Absent: lymphadenopathy - Respiratory Respiratory exam: Present: CTAB. Absent: accessory muscle use, rales, rhonchi, wheezes - Cardiovascular Cardiovascular exam: Present: RRR, +S1, +S2. Absent: diastolic murmur, gallop, rubs, systolic murmur - GI/Abdominal GI/Abdominal exam: Present: normal bowel sounds, soft, no peritoneal signs. Absent: distended, tenderness - Extremities Exam Extremities exam: Present: warm, radial pulses palpable and symetrical. Absent : calf tenderness, cyanotic, pedal edema Additional comments: Right leg ROM limited due to pain - Neurological Exam Neurological exam: Present: CN II-XII intact, oriented X3, no focal deficits. Absent: pronater drift, facial droop, speech deficit - Skin Skin exam: Present: dry, intact Internal Medicine: Result - Labs CBC & Chem 7: 04/29/17 07:24 04/29/17 07:24 Labs: Short CBC 04/29/17 Range/Units 07:24 WBC 6.0 (4.3-11.1) K/mcL Hgb 9.2 L (11.5-15.4) g/dL Hct 29.0 L (35.3-44.9) % Plt Count 168 (140-400) K/mcL Neutrophils # 3.4 (1.6-8.9) K/mcL BMP 04/29/17 07:24 Sodium 140 Potassium 3.5 Chloride 101 Carbon Dioxide 32 H BUN 15 Creatinine 0.72 Glucose 103 H Calcium 9.1 - Impressions Impressions Femur X-Ray 04/28/17 07:44 IMPRESSION: Improved alignment of the right femur fracture status post ORIF. D/ / 04/28/2017 10:31:57 Benton Machado MD / chela Interpreting Provider: Benton Machado MD - VTE Documentation of Mechanical Device: Venous foot pump, device Consult Discharge Plan - Plan Referrals: NO,PCP [Primary Care Provider] -
--- NOTE | 2017-04-29 18:20 | Orthopedics Progress Note ---
Date of Encounter: 04/29/17 Time of Encounter: 18:18 - Assessment and Plan (1) Femur fracture, right Current Visit: No Status: Acute Postoperative day #1, stable Discharge planning to rehabilitation Continue nonweightbearing to right lower extremity Continue DVT prophylaxis Continue OT and PT Qualifiers: Femur location: shaft Fracture type: closed Fracture morphology: oblique Fracture alignment: displaced Fracture healing: with routine healing Qualified Code(s): S72.331D - Displaced oblique fracture of shaft of right femur , subsequent encounter for closed fracture with routine healing Subjective Principal diagnosis: Right distal femur periprosthetic fracture Interval history: Patient is comfortable today Alert and oriented Right lower extremity: Hinged brace locked in extension, dressings are clean dry and intact Bilateral calves are soft and nontender, the rest intact distally at both feet Objective Vital signs: Vital Signs Temp Pulse Resp BP Pulse Ox 04/29/17 16:05 98.9 F 76 16 120/74 96 04/29/17 12:56 105/63 04/29/17 11:14 98.5 F 74 17 119/66 95 04/29/17 07:17 98.7 F 72 16 103/62 95 04/29/17 04:05 99.6 F 76 16 104/62 04/29/17 03:07 99.7 F H 04/29/17 01:40 102.0 F H 83 16 117/69 94 04/29/17 01:25 101.1 F H 87 16 04/28/17 23:35 100.8 F H 98 16 115/68 96 04/28/17 22:27 100.8 F H 99 16 143/71 04/28/17 19:15 98.3 F 82 16 115/66 96 04/28/17 18:50 98.1 F 90 16 137/66 98 Intake and Output 04/29/17 04/29/17 04/29/17 07:59 15:59 23:59 Intake Total 300 / 300 90 / 90 360 / 360 Output Total 325 / 325 450 / 450 Balance -25 / -25 90 / 90 -90 / -90 Intake: Oral 90 / 90 360 / 360 Blood Product 300 / 300 Rbcs Leuko Poor As-1 300 / 300 Unit [id number] Output: Catheter 325 / 325 450 / 450 Other: Meal Lunch Dinner Percent of Meal Consumed 50% 75% Weight 79.923 kg Patient Weight 04/29/17 23:59 Weight 79.923 kg Incision: clean and dry - Labs CBC & BMP: 04/29/17 07:24 04/29/17 07:24 Labs: Abnormal lab results RBC 3.42 M/mcL (3.82-4.97) L 04/29/17 07:24 Hgb 9.2 g/dL (11.5-15.4) L 04/29/17 07:24 Hct 29.0 % (35.3-44.9) L 04/29/17 07:24 MCH 26.9 pg (28.0-33.3) L 04/29/17 07:24 RDW 15.8 % (11.5-14.5) H 04/29/17 07:24 Carbon Dioxide 32 mEq/L (19-29) H 04/29/17 07:24 Glucose 103 mg/dL (70-99) H 04/29/17 07:24 - VTE Documentation of Mechanical Device: Venous foot pump, device Consult Discharge Plan - Plan Referrals: NO,PCP [Primary Care Provider] -
[2017-04-29] MEDS: rOPINIRole 0.25 MG TABLET PO SCH (20:59)
[2017-04-30] MEDS: *HR* HYDROmorphone (PF) 1 MG/ML SYRINGE IVP PRN ×3 (01:02→19:52)
[2017-04-30] MEDS: *HR* OxyCODONE Immed Rel 5 MG TABLET PO PRN ×5 (03:10→23:14)
[2017-04-30 05:45] LABS: Basophils % 0.4 %; Eosinophils # 0.1 K/mcL (0.0-0.6); Eosinophils % 1.9 %; Hematocrit 27.8 % (35.3-44.9); Hemoglobin 8.8 g/dL (11.5-15.4); Immature Granulocytes % 0.3 % (0-4); Lymphocytes # 1.5 K/mcL (0.6-4.6); Lymphocytes % 22.2 %; Mean Corpuscular HGB Conc 31.7 g/dL (31.6-35.5); Mean Corpuscular Hemoglobin 27.1 pg (28.0-33.3); Mean Corpuscular Volume 85.5 fL (83.0-100.0); Mean Platelet Volume 10.5 fL (9.4-12.4); Monocytes # 0.8 K/mcL (0.0-1.3); Monocytes % 11.3 %; Neutrophils # 4.4 K/mcL (1.6-8.9); Platelet Count 189 K/mcL (140-400); Red Blood Count 3.25 M/mcL (3.82-4.97); Red Cell Distribution Width 16.2 % (11.5-14.5); Segmented Neutrophils % 63.9 %
[2017-04-30] MEDS: *HR* Enoxaparin 40 MG/0.4 ML SYRINGE SQ SCH (05:50)
[2017-04-30 06:08] LABS: BUN/Creatinine Ratio 30 (6-26); Blood Urea Nitrogen 19 mg/dL (7-20); Calcium 9.3 mg/dL (8.6-10.8); Carbon Dioxide 31 mEq/L (19-29); Chloride 103 mEq/L (98-109); Glucose 99 mg/dL (70-99); Osmolality,Calculated 292 (280-300); Potassium 3.9 mEq/L (3.5-4.5); Sodium 140 mEq/L (136-145); eGFR For African Americans > 60 (> 60); eGFR For Non-African Americans > 60 (> 60)
[2017-04-30] MEDS: Sucralfate 1 GM TABLET PO SCH ×2 (08:52→19:52)
[2017-04-30] MEDS: Prenatal Vit/FA 1 EACH TABLET PO SCH (08:53)
[2017-04-30] MEDS: Lisinopril 20 MG TABLET PO SCH (08:53)
--- NOTE | 2017-04-30 09:38 | Orthopedics Progress Note ---
Date of Encounter: 04/30/17 Time of Encounter: 09:37 - Assessment and Plan (1) Femur fracture, right Current Visit: No Status: Acute POD#2 0 Right Distal femur ORIF - 04/28/17 NWB to RLE. Bone stimulator placed. No Knee ROM. In T-scope brace, locked in extension x 6-8 weeks. Ambulate with assistance, NWB to RLE. RANDY wrap for swelling management and to prevent skin breakdown from brace. OK to remove at night. PT/OT for upper extremities. Plan to D/C to ECF Qualifiers: Femur location: shaft Fracture type: closed Fracture morphology: oblique Fracture alignment: displaced Fracture healing: with routine healing Qualified Code(s): S72.331D - Displaced oblique fracture of shaft of right femur , subsequent encounter for closed fracture with routine healing Subjective Principal diagnosis: Right distal femur periprosthetic fracture Interval history: POD#2 - Right femur ORIF - 04/28/17 Patient doing well, sitting in chair with leg propped. Pain controlled. Afebrile, vitals are stable. Repeat H/H stable. LUE: Dressing c/d/i - RANDY wrap intact, brace in place. Ecchymosis noted. Swelling +, no calf tenderness. ROM limited, NV intact distally. Objective Vital signs: Vital Signs Temp Pulse Resp BP Pulse Ox 04/30/17 08:17 74 16 106/64 97 04/30/17 06:55 98.8 F 74 16 106/64 97 04/30/17 04:06 95 04/30/17 03:15 98.9 F 68 16 116/68 95 04/30/17 01:06 99.3 F 84 15 113/65 96 04/29/17 22:53 99.7 F H 83 14 104/59 95 04/29/17 18:40 99.7 F H 88 14 111/58 94 04/29/17 16:05 98.9 F 76 16 120/74 96 04/29/17 12:56 105/63 04/29/17 11:14 98.5 F 74 17 119/66 95 Intake and Output 04/29/17 04/30/17 04/30/17 23:59 07:59 15:59 Intake Total 510 / 510 1000 / 1000 240 / 240 Output Total 700 / 700 150 / 150 Balance -190 / -190 850 / 850 240 / 240 Intake: IV Fluids 1000 / 1000 0.9 % Sodium Chloride 1, 1000 / 1000 000 ML @ 60 mls/hr IVC . [id number] [facility] Rx#: [id number] Oral 510 / 510 240 / 240 Output: Urine 150 / 150 Urethral (Simental) 150 / 150 Catheter 700 / 700 0 / 0 Other: Meal Dinner Breakfast Percent of Meal Consumed 75% 100% Weight 80.8 kg Patient Weight 04/30/17 23:59 Weight 80.8 kg Incision: clean and dry - Labs CBC & BMP: 04/30/17 05:21 04/30/17 05:21 Labs: Abnormal lab results RBC 3.25 M/mcL (3.82-4.97) L 04/30/17 05:21 Hgb 8.8 g/dL (11.5-15.4) L 04/30/17 05:21 Hct 27.8 % (35.3-44.9) L 04/30/17 05:21 MCH 27.1 pg (28.0-33.3) L 04/30/17 05:21 RDW 16.2 % (11.5-14.5) H 04/30/17 05:21 Carbon Dioxide 31 mEq/L (19-29) H 04/30/17 05:21 BUN/Creatinine Ratio 30 (6-26) H 04/30/17 05:21 - VTE Documentation of Mechanical Device: Venous foot pump, device Consult Discharge Plan - Plan Referrals: NO,PCP [Primary Care Provider] -
[2017-04-30] MEDS: CALCIUM 600 MG PO SCH (10:33)
[2017-04-30] MEDS: CHOLECALCIFEROL PO SCH (10:33)
--- NOTE | 2017-04-30 17:20 | Internal Med Progress Note ---
Date of Encounter: 04/30/17 Time of Encounter: 10:00 - Assessment and plan (1) DVT prophylaxis Current Visit: Yes Status: Acute (2) HTN (hypertension) Current Visit: No Status: Chronic Qualifiers: Hypertension type: essential hypertension Qualified Code(s): I10 - Essential (primary) hypertension (3) Acute blood loss anemia Current Visit: No Status: Acute (4) Femur fracture, right Current Visit: No Status: Acute Qualifiers: Femur location: shaft Fracture type: closed Fracture morphology: oblique Fracture alignment: displaced Fracture healing: with routine healing Qualified Code(s): S72.331D - Displaced oblique fracture of shaft of right femur , subsequent encounter for closed fracture with routine healing - Subjective Interval history: Patient is a 66-year-old female admitted for right femoral fracture. Past medical history is significant for hypertension, hyperlipidemia, depression, anemia, asthma, GERD Patient was seen and examined. She had surgery POD# 2. She has minimal pain, controlled by pain medication. No other complaint. Hemoglobin stable. Vitals are stable. Continue close monitoring. PTOT. DVT prophylaxis. - Constitutional Vitals: Temp Pulse Resp BP Pulse Ox 98.6 F 72 20 119/72 95 04/30/17 15:37 04/30/17 15:37 04/30/17 15:37 04/30/17 15:37 04/30/17 15:37 General appearance: Present: A&O X 3, pleasant, no acute distress, answers questions appropriately - Head Head exam: Present: atraumatic, normocephalic - Eye Eye exam: Present: PERRL, conjuntiva pink, sclera anicteric Pupils: Present: PERRL - Neck Neck exam general surgery: Present: supple, trachea midline. Absent: lymphadenopathy - Respiratory Respiratory exam: Present: CTAB. Absent: accessory muscle use, rales, rhonchi, wheezes - Cardiovascular Cardiovascular exam: Present: RRR, +S1, +S2. Absent: diastolic murmur, gallop, rubs, systolic murmur - GI/Abdominal GI/Abdominal exam: Present: normal bowel sounds, soft, no peritoneal signs. Absent: distended, tenderness - Extremities Exam Extremities exam: Present: warm, radial pulses palpable and symetrical. Absent : calf tenderness, cyanotic, pedal edema Additional comments: Rt leg ROM limited due to pain. - Neurological Exam Neurological exam: Present: CN II-XII intact, oriented X3, no focal deficits. Absent: pronater drift, facial droop, speech deficit - Skin Skin exam: Present: dry, intact Internal Medicine: Result - Labs CBC & Chem 7: 04/30/17 05:21 04/30/17 05:21 Labs: Short CBC 04/30/17 Range/Units 05:21 WBC 6.9 (4.3-11.1) K/mcL Hgb 8.8 L (11.5-15.4) g/dL Hct 27.8 L (35.3-44.9) % Plt Count 189 (140-400) K/mcL Neutrophils # 4.4 (1.6-8.9) K/mcL BMP 04/30/17 05:21 Sodium 140 Potassium 3.9 Chloride 103 Carbon Dioxide 31 H BUN 19 Creatinine 0.63 Glucose 99 Calcium 9.3 - VTE Documentation of Mechanical Device: Venous foot pump, device Consult Discharge Plan - Plan Referrals: NO,PCP [Primary Care Provider] -
[2017-04-30] MEDS: rOPINIRole 0.25 MG TABLET PO SCH (20:04)
--- NOTE | 2017-05-01 06:33 | Orthopedics Progress Note ---
Date of Encounter: 05/01/17 Time of Encounter: 06:33 Subjective Principal diagnosis: Right distal femur periprosthetic fracture Interval history: Patient was seen this morning doing well without complaints. Afebrile vital signs stable. Operative extremity: Neurovascularly intact Dressing clean dry and intact Calves nontender Assessment and plan: Continue with postoperative care Orthopedic stable for discharge Objective Vital signs: Vital Signs Temp Pulse Resp BP Pulse Ox 05/01/17 03:05 98.6 F 75 18 111/62 97 04/30/17 22:48 98.8 F 75 18 103/63 96 04/30/17 18:59 99.7 F H 91 16 101/51 95 04/30/17 15:37 98.6 F 72 20 119/72 95 04/30/17 12:22 98.7 F 76 18 108/68 97 04/30/17 08:17 74 16 106/64 97 04/30/17 06:55 98.8 F 74 16 106/64 97 Intake and Output 04/30/17 04/30/17 05/01/17 15:59 23:59 07:59 Intake Total 480 / 480 240 / 240 Output Total 0 / 0 0 / 0 Balance 480 / 480 240 / 240 0 / 0 Intake: Oral 480 / 480 240 / 240 Output: Urine 0 / 0 0 / 0 Other: Meal Lunch Dinner Percent of Meal Consumed 10% 75% # Voids 1 Weight 81.057 kg Patient Weight 05/01/17 23:59 Weight 81.057 kg - Labs CBC & BMP: 04/30/17 05:21 04/30/17 05:21 Labs: Abnormal lab results RBC 3.25 M/mcL (3.82-4.97) L 04/30/17 05:21 Hgb 8.8 g/dL (11.5-15.4) L 04/30/17 05:21 Hct 27.8 % (35.3-44.9) L 04/30/17 05:21 MCH 27.1 pg (28.0-33.3) L 04/30/17 05:21 RDW 16.2 % (11.5-14.5) H 04/30/17 05:21 Carbon Dioxide 31 mEq/L (19-29) H 04/30/17 05:21 BUN/Creatinine Ratio 30 (6-26) H 04/30/17 05:21 - VTE Documentation of Mechanical Device: Venous foot pump, device Consult Discharge Plan - Plan Referrals: NO,PCP [Primary Care Provider] -
[2017-05-01] MEDS: *HR* Enoxaparin 40 MG/0.4 ML SYRINGE SQ SCH (06:46)
[2017-05-01] MEDS: Prenatal Vit/FA 1 EACH TABLET PO SCH (09:51)
[2017-05-01] MEDS: Lisinopril 20 MG TABLET PO SCH (09:51)
[2017-05-01] MEDS: Sucralfate 1 GM TABLET PO SCH ×2 (09:51→21:10)
[2017-05-01] MEDS: *HR* OxyCODONE Immed Rel 5 MG TABLET PO PRN ×3 (09:52→22:56)
[2017-05-01] MEDS ORDERED: Lactulose Oral Soln 20 GM/30 ML UDC PO ONE (12:23)
--- NOTE | 2017-05-01 16:19 | Internal Med Progress Note ---
Date of Encounter: 05/01/17 Time of Encounter: 10:00 - Assessment and plan (1) DVT prophylaxis Current Visit: Yes Status: Acute Assessment and plan: Lovenox subcutaneously (2) HTN (hypertension) Current Visit: No Status: Chronic Assessment and plan: Continue home medication Qualifiers: Hypertension type: essential hypertension Qualified Code(s): I10 - Essential (primary) hypertension (3) Acute blood loss anemia Current Visit: No Status: Acute Assessment and plan: Patient has 2 major surgeries recently. Anemia possibly due to surgery blood loss. Hemoglobin improved after transfusion. (4) Femur fracture, right Current Visit: No Status: Acute Assessment and plan: S/P surgery. Pain management. PTOT. DVT prophylaxis. Plan for rehabilitation discharge. Qualifiers: Femur location: shaft Fracture type: closed Fracture morphology: oblique Fracture alignment: displaced Fracture healing: with routine healing Qualified Code(s): S72.331D - Displaced oblique fracture of shaft of right femur , subsequent encounter for closed fracture with routine healing - Time Spent With Patient 25 - 35 minutes - Subjective Interval history: Patient is a 66-year-old female admitted for right femoral fracture. Past medical history is significant for hypertension, hyperlipidemia, depression, anemia, asthma, GERD Patient was seen and examined. She had surgery POD# 3. She has minimal pain, controlled by pain medication. No other complaint. Vitals are stable. Continue close monitoring. PTOT. DVT prophylaxis. Rehab placement pending approval. - Constitutional Vitals: Temp Pulse Resp BP Pulse Ox 98.6 F 76 17 130/75 95 05/01/17 14:04 05/01/17 14:04 05/01/17 14:04 05/01/17 14:04 05/01/17 14:04 General appearance: Present: A&O X 3, pleasant, no acute distress, answers questions appropriately - Head Head exam: Present: atraumatic, normocephalic - Eye Eye exam: Present: PERRL, conjuntiva pink, sclera anicteric Pupils: Present: PERRL - Neck Neck exam general surgery: Present: supple, trachea midline. Absent: lymphadenopathy - Respiratory Respiratory exam: Present: CTAB. Absent: accessory muscle use, rales, rhonchi, wheezes - Cardiovascular Cardiovascular exam: Present: RRR, +S1, +S2. Absent: diastolic murmur, gallop, rubs, systolic murmur - GI/Abdominal GI/Abdominal exam: Present: normal bowel sounds, soft, no peritoneal signs. Absent: distended, tenderness - Extremities Exam Extremities exam: Present: warm, radial pulses palpable and symetrical. Absent : calf tenderness, cyanotic, pedal edema Additional comments: Rt leg ROM limited due to pain. - Neurological Exam Neurological exam: Present: CN II-XII intact, oriented X3, no focal deficits. Absent: pronater drift, facial droop, speech deficit - Skin Skin exam: Present: dry, intact Internal Medicine: Result - Labs CBC & Chem 7: 04/30/17 05:21 04/30/17 05:21 - VTE Documentation of Mechanical Device: Venous foot pump, device Consult Discharge Plan - Plan Referrals: NO,PCP [Primary Care Provider] -
[2017-05-01] MEDS: rOPINIRole 0.25 MG TABLET PO SCH (21:10)
[2017-05-02] MEDS: *HR* HYDROmorphone (PF) 1 MG/ML SYRINGE IVP PRN ×2 (00:39→04:04)
[2017-05-02] MEDS: *HR* OxyCODONE Immed Rel 5 MG TABLET PO PRN ×2 (02:56→12:27)
[2017-05-02] MEDS: *HR* Enoxaparin 40 MG/0.4 ML SYRINGE SQ SCH (06:04)
[2017-05-02] MEDS: Sucralfate 1 GM TABLET PO SCH (08:52)
[2017-05-02] MEDS: Prenatal Vit/FA 1 EACH TABLET PO SCH (08:52)
[2017-05-02] MEDS: Lisinopril 20 MG TABLET PO SCH (08:53)
--- NOTE | 2017-05-02 12:19 | Orthopedics Progress Note ---
Date of Encounter: 05/02/17 Time of Encounter: 08:00 Subjective Principal diagnosis: Right distal femur periprosthetic fracture Interval history: Patient was seen this morning doing well without complaints. Afebrile vital signs stable. Operative extremity: Neurovascularly intact Dressing clean dry and intact Calves nontender Assessment and plan: Continue with postoperative care. Brace to be adjusted on the floor today. Discharge today pending rehab placement. Objective Vital signs: Vital Signs Temp Pulse Resp BP Pulse Ox 05/02/17 10:54 98.5 F 62 18 133/66 99 05/02/17 08:16 98.5 F 77 17 114/75 95 05/02/17 04:12 98.5 F 74 16 110/62 95 05/01/17 22:57 98.2 F 72 16 112/62 97 05/01/17 22:10 97 05/01/17 18:52 98.6 F 93 16 115/45 97 05/01/17 14:04 98.6 F 76 17 130/75 95 Intake and Output 05/01/17 05/02/17 05/02/17 23:59 07:59 15:59 Intake Total 120 / 120 120 / 120 740 / 740 Output Total 400 / 400 0 / 0 0 / 0 Balance -280 / -280 120 / 120 740 / 740 Intake: Oral 120 / 120 120 / 120 740 / 740 Output: Urine 400 / 400 0 / 0 0 / 0 Other: Meal Dinner Breakfast Percent of Meal Consumed 90% 75% # Voids 1 Weight 78.698 kg Patient Weight 05/02/17 23:59 Weight 78.698 kg - Labs CBC & BMP: 04/30/17 05:21 04/30/17 05:21 Labs: Abnormal lab results RBC 3.25 M/mcL (3.82-4.97) L 04/30/17 05:21 Hgb 8.8 g/dL (11.5-15.4) L 04/30/17 05:21 Hct 27.8 % (35.3-44.9) L 04/30/17 05:21 MCH 27.1 pg (28.0-33.3) L 04/30/17 05:21 RDW 16.2 % (11.5-14.5) H 04/30/17 05:21 Carbon Dioxide 31 mEq/L (19-29) H 04/30/17 05:21 BUN/Creatinine Ratio 30 (6-26) H 04/30/17 05:21 - VTE Documentation of Mechanical Device: Venous foot pump, device Consult Discharge Plan - Plan Referrals: NO,PCP [Primary Care Provider] -
--- NOTE | 2017-05-02 12:47 | Discharge Summary ---
Date of Encounter: 05/02/17 Time of Encounter: 12:45 - Discharge Diagnosis (1) HTN (hypertension) Priority: Secondary Status: Chronic Qualifiers: Hypertension type: essential hypertension Qualified Code(s): I10 - Essential (primary) hypertension (2) Fibromyalgia Priority: Secondary Status: Chronic (3) HLD (hyperlipidemia) Priority: Secondary Status: Chronic Qualifiers: Hyperlipidemia type: unspecified Qualified Code(s): E78.5 - Hyperlipidemia , unspecified (4) Femur fracture, right Priority: Primary Status: Acute Qualifiers: Femur location: shaft Fracture type: closed Fracture morphology: oblique Fracture alignment: displaced Fracture healing: with routine healing Qualified Code(s): S72.331D - Displaced oblique fracture of shaft of right femur , subsequent encounter for closed fracture with routine healing - Discharge Medications Prescriptions: OxyCODONE Immed Rel [Roxicodone 5 MG] 5 mg PO Q6HR PRN #30 tablet PRN Reason: mod pain Sucralfate [Carafate] 1 gm PO BID #60 tablet Home Medications: Escitalopram [Lexapro] 10 mg PO DAILY 11/08/15 [History] Lisinopril [Zestril] 20 mg PO DAILY 11/08/15 [History] Calcium Carbonate/Vitamin D3 [Calcium 600-Vit D3 200 Tablet] 1 tab PO DAILY 09/16 [History] Lansoprazole [Prevacid] 30 mg PO DAILY 10/11/16 [History] Off920/Ferrous Fumarate/FA [Gs Vitamins Tablet] 1 tab PO DAILY [History] Ropinirole HCl [Requip] 0.5 mg PO HS 10/11/16 [History] Celecoxib [Celebrex] 200 mg PO DAILY 02/11/17 [History] Ondansetron [Zofran] 4 mg PO Q8HR PRN 02/11/17 [History] OxyCODONE Immed Rel [Roxicodone 5 MG] 5 mg PO Q4HR PRN #24 tablet 04/25/17 [Rx] OxyCODONE Immed Rel [Roxicodone 5 MG] 5 mg PO Q6HR PRN #30 tablet 05/02/17 [Rx] Sucralfate [Carafate] 1 gm PO BID #60 tablet 05/02/17 [Rx] Allergies/Adverse Reactions: Allergies meperidine [From Demerol] Adverse Reaction (Verified 02/11/17 14:02) Nausea states ok when taken with phenergan Date of admission: 04/27/17 09:12 Primary care physician: PCP NO Consults: 04/27/17 09:17 Consult to Orthopedic Surgery [CONS] Routine Consulting Provider: Moe Landrum Reason for Consult: femoral fracture Call Completed: Yes 04/28/17 10:53 Consult to Occupational Therapy [CONS] Routine Comment: Evaluate, develop and implement POC Reason for Consult: adls Consult to Orthopedic Navigator [CONS] [CONS] Routine Consult to Physical Therapy [CONS] Routine Comment: Evaluate, develop and implement POC Reason for Consult: non weight bearing RLE, no knee motion brace at all timess locked in extension Consult to Industrial Machine System Technician [CONS] Routine Reason for SW Consult: disposition RT Post Op Consult [CONS] Routine Discharging clinician: Willem Torres Anticipated date of discharge: 05/02/17 - Patient Status Disposition: Transfer Inpatient Rehab Fac Condition: Fair Functional capacity at discharge: uses cane/walker Overall status at discharge: patient is progressing back to baseline - Discharge Instructions Follow Up With: NO,PCP [Primary Care Provider] - - Diet and Activity Activity: as per physical therapy Diet: advance to your usual diet Interval History: Patient is a 66-year-old female admitted for right femoral fracture. Past medical history is significant for hypertension, hyperlipidemia, depression, anemia, asthma, GERD.Patient is well-known to ortho, had a knee manipulation yesterday with a femoral block. Patient's manipulation was uneventful and she was discharged from same day surgery. Patient reports that her foot was still numb and the block was still working when she got this morning at about 1:30 AM. Patient states that she felt the knee gave away and she rotated, she did not have her brace on. Resulting in significant pain. Patient sustaining a long oblique fracture of the right distal femur. she was hence admitted for Displaced comminuted oblique distal third femur fracture. ortho was consulted and she underwent Right open reduction internal fixation femur shaft fracture. post op care was managed by ortho and she is being dc today in stable condition to inpt. rehab. Hospital course: Ms. Reyes is a 66 year old female - Time Spent with Patient Total time spent providing and/or coordinating discharge services: - Constitutional Vitals: Temp Pulse Resp BP Pulse Ox 98.5 F 62 18 133/66 99 05/02/17 10:54 05/02/17 10:54 05/02/17 10:54 05/02/17 10:54 05/02/17 10:54 General appearance: Present: A&O X 3, pleasant, no acute distress, answers questions appropriately Exam: - Head Head exam: Present: atraumatic, normocephalic - Eye Eye exam: Present: PERRL, conjuntiva pink, sclera anicteric Pupils: Present: PERRL - Neck Neck exam general surgery: Present: supple, trachea midline. Absent: lymphadenopathy - Respiratory Respiratory exam: Present: CTAB. Absent: accessory muscle use, rales, rhonchi, wheezes - Cardiovascular Cardiovascular exam: Present: RRR, +S1, +S2. Absent: diastolic murmur, gallop, rubs, systolic murmur - GI/Abdominal GI/Abdominal exam: Present: normal bowel sounds, soft, no peritoneal signs. Absent: distended, tenderness - Extremities Exam Extremities exam: Present: warm, radial pulses palpable and symetrical. Absent : calf tenderness, cyanotic, pedal edema Additional comments: Rt leg ROM limited due to pain. - Neurological Exam Neurological exam: Present: CN II-XII intact, oriented X3, no focal deficits. Absent: pronater drift, facial droop, speech deficit - Skin Skin exam: Present: dry, intact - VTE Documentation of Mechanical Device: Venous foot pump, device
--- NOTE | 2017-05-02 12:49 | Physician Discharge Referral ---
ExtendedCare Referral Info Transfer To: [facility] Provider in Charge: dave adair Institutional Level of Care: Intermediate - MR - Diagnosis (1) HTN (hypertension) Status: Chronic (2) Fibromyalgia Status: Chronic (3) HLD (hyperlipidemia) Status: Chronic (4) Femur fracture, right Status: Acute - Transfer Medications Prescriptions: OxyCODONE Immed Rel [Roxicodone 5 MG] 5 mg PO Q6HR PRN #30 tablet PRN Reason: mod pain Sucralfate [Carafate] 1 gm PO BID #60 tablet Home Medications: Escitalopram [Lexapro] 10 mg PO DAILY 11/08/15 [History] Lisinopril [Zestril] 20 mg PO DAILY 11/08/15 [History] Calcium Carbonate/Vitamin D3 [Calcium 600-Vit D3 200 Tablet] 1 tab PO DAILY 09/16 [History] Lansoprazole [Prevacid] 30 mg PO DAILY 10/11/16 [History] Knv687/Ferrous Fumarate/FA [Gs Vitamins Tablet] 1 tab PO DAILY [History] Ropinirole HCl [Requip] 0.5 mg PO HS 10/11/16 [History] Celecoxib [Celebrex] 200 mg PO DAILY 02/11/17 [History] Ondansetron [Zofran] 4 mg PO Q8HR PRN 02/11/17 [History] OxyCODONE Immed Rel [Roxicodone 5 MG] 5 mg PO Q4HR PRN #24 tablet 04/25/17 [Rx] OxyCODONE Immed Rel [Roxicodone 5 MG] 5 mg PO Q6HR PRN #30 tablet 05/02/17 [Rx] Sucralfate [Carafate] 1 gm PO BID #60 tablet 05/02/17 [Rx] Allergies/Adverse Reactions: Allergies meperidine [From Demerol] Adverse Reaction (Verified 02/11/17 14:02) Nausea states ok when taken with phenergan - Respiratory Orders Smoking Cessation: Smoking cessation has been advised. For more information, call the [place] Tobacco Quit Line at 1-718-MZVU-NOW. - Advance Directives Code Status: Full Code - Mobility Orders Ambulate - Rehabiliation Orders Rehab Potential: Good Rehab Orders: Evaluation for Physical Therapy, Evaluation for Occupational Therapy - Diet Orders Regular CERTIFICATION: I certify that the transfer of the above named patient to an Extended Care Facility is necessary for the continuing treatment of the diagnosis listed. The above information is true and accurate reflection of patient's current condition. Confidential - Redisclosure prohibited without a patient's written consent.
[2017-05-02 16:02] VITALS: BP 121/64
== END 2017-05-02 17:30 | DRG 481 ==
LOC: 3NENU → 3ANU 14:39
PROVIDERS: ADMIT Hospitalist; ATTEND Internal Medicine

== ENCOUNTER 2019-04-10 08:34 | Inpatient (IN) ==
[2019-04-10] MEDS ORDERED: 0.9 % Sodium Chloride 1,000 ML ONE ×2 (09:30→09:53)
[2019-04-10] MEDS: 0.9 % Sodium Chloride 1,000 ML IVC SCH ×2 (09:43→11:46)
[2019-04-10] MEDS ORDERED: Nitroglycerin 1,000 MCG/10 ML VIAL IV ONE (09:53)
[2019-04-10] MEDS ORDERED: Heparin 1,000 UNITS/500 mL 500 ML ONE (09:53)
[2019-04-10] MEDS ORDERED: *HR* Heparin 10,000 UNIT/10 ML VIAL ONE (09:53)
[2019-04-10] MEDS ORDERED: ISOVUE-370 200 ML INFUS..BTL ONE (09:53)
[2019-04-10] MEDS ORDERED: *HR* Midazolam HCl 2 MG/2 ML VIAL ONE (10:08)
[2019-04-10] MEDS ORDERED: *HR* FentaNYL (PF) 100 MCG/2 ML VIAL ONE (10:09)
--- NOTE | 2019-04-10 10:13 | History & Physical Report ---
Date of Encounter: 04/10/19 Time of Encounter: 10:13 24 Hour HP Update - Instructions Instructions: If the History and Physical is less than 30 days old and was completed prior to A.M. admission and or procedure and has NOT been updated on calendar day of procedure please complete this update prior to performing procedure. - Update Patient reports changes in Medical Condition: No Changes in examination, assessment, or condition: No Changes in Medication: No Preop tests/diagnostics Reviewed: Yes Surgery Remains Indicated: Yes Consent for Planned Operative Procedure(s) Verified: Yes
--- NOTE | 2019-04-10 10:13 | Pre-Sedation Evaluation ---
Pre-sedation evaluation - Pre-sedation checklist Date of procedure: 04/10/19 Procedure: C Recent Vitals: Last Vital Signs Temp 98.3 F 04/10/19 09:36 Pulse 71 04/10/19 09:36 Resp 18 04/10/19 09:36 BP 132/78 04/10/19 09:36 H&P (including ROS) documented in medical record: Yes Previous reaction to sedatives/anesthetics: No Dietary Status: NPO after Midnight Dentition: No loose teeth or bridges ASA Classification *see protocol: CLASS II-Mild systemic disease Cardiac Registry (Cardio Only) - Functional Capacity Functional Capacity: >=4 METS with symptoms - Clincal Frailty Scale Clinical Frailty Scale: Managing Well
--- NOTE | 2019-04-10 11:24 | Invasive Diagnostic Lab Proc ---
Name: Isael Reyes Date of Study: 04/10/2019 Date: 1950 Ht: 67.0in Medical Record#: [id number] Age: 68 Wt: 191.00lb Gender: Female BSA: 1.98 Order #: [id number] BMI: 29.91 Physicians Procedure Physician: Elana Butler MD Referring MD: Referring MD: Abi Mata MD Staff Name Position Time In Lluvia Santos RN Pre-Op Nurse 09:54 AM Ama Snell RN Pre-Op Nurse 09:54 AM Jaqueline Abad RN Monitor 10:06 AM Kevin Duffy RN Informatics Developer 10:07 AM Indira Santos RN Scrub 10:07 AM Indications Indication Unstable Angina Procedures Performed Procedure L HRT ARTERY/VENTRICLE ANGIO Pre-Procedure Checklist Informed consent is complete signed and on chart. H&P is on chart. ID band is on and ID verified with patient. Patient NPO for procedure The procedure was described for the patient and questions were answered. Blood Pressure: 132/78 ECG is on chart. Rhythm: NSR Plan of Care Patient will tolerate the procedure without complications. Adequate level of comfort will be maintained. Hemodynamics will remain stable Patient will recover from procedure without complications. Respiratory function will be maintained. Cardiac rhythm will remain stable. Patient temperature will be maintained. Patient and/or family have verbalized understanding of the procedure. Patient Education Intravenous Access Time IV Size Location DC'd Fluid/Drip Rate Units RN 09:52 AM Started with 20g 1 1/4" Lt Antecubital 0.9NaCl 50 ml/hr Ama Snell RN Allergies meperidine Vital Signs Time BP (mmHg) HR (bpm) O2 Sat. RR (bpm) LOC 09:53 AM 132 / 78 71 96 % 18 5 = Fully awake and oriented or at pre-proc level 10:08 AM / % 5 = Fully awake and oriented or at pre-proc level 10:08 AM / % 4 = Oriented but drowsy 10:23 AM / % 5 = Fully awake and oriented or at pre-proc level 10:11 AM 138 / 77 62 100 % 18 10:15 AM 134 / 72 64 100 % 15 10:20 AM 130 / 77 67 99 % 12 10:25 AM 120 / 75 62 99 % 7 10:30 AM 132 / 78 78 98 % 15 10:35 AM 134 / 79 72 97 % 15 10:40 AM 130 / 77 72 100 % 10:58 AM 143 / 86 76 100 % 16 5 = Fully awake and oriented or at pre-proc level Procedural Medications Time Medication Dose Units Method Given By 10:08 AM Oxygen 2 L/min nasal cannula Kevin Duffy RN 10:12 AM Versed 1 mg Intravenous Kevin Duffy RN 10:12 AM Fentanyl 50 mcg Intravenous Kevin Duffy RN 10:21 AM Versed 1 mg Intravenous Kevin Duffy RN 10:21 AM Fentanyl 50 mcg Intravenous Kevin Duffy RN 10:21 AM Lidocaine 2% 10 ml Subcutaneous Elana Butler MD 10:22 AM Lidocaine 2% 9 ml Subcutaneous Elana Butler MD 10:31 AM Heparin 500 units Intravenous Kevin Duffy RN ASA Classification: CLASS II- Mild systemic disease (i.e. well-controlled diabetes, hypertension, asthma, cigarette smoking) Ronn Score Preprocedure Postprocedure Activity 2- Moves 4 extremities sustained head lift Activity Circulation 2- SBP +/= 20 points of pre-anesthetic level Circulation Consciousness 2- Awake and alert oriented x 3 Consciousness O2 Saturation 2- Able to maintain O2 satruation of 92% on room air O2 Saturation Respiratory 2- Able to deep breathe and cough well Respiratory Total Score 10 Total Score Contrast Agent: Isovue Diagnostic Contrast: 60 ml Total Contrast: 60 ml Fluoro Dose: 41 mGy Procedure Log Time Note Enter By 10:06 AM Pt arrived to pathology laboratory director 2 at 10:06 kmavis 10:06 AM Physician arrived 10:06 [facility] 10:06 AM Cesario completed kmavis 10:06 AM Sign in performed according to hospital policy. Informed consent was obtained. avis 10:07 AM Jaqueline Abad RN Position: Monitor Time in: 10: [facility] 10:07 AM Kevin Duffy RN Position: Informatics Developer Time in: 10: kmavis 10:07 AM Indira Santos RN Position: Scrub Time in: 10:07 [facility] 10:07 AM Patient charges- Angio tray pack, Navilyst 3mm J, Pulse Oximetry and ACIST tubing and transducer kmavis 10:07 AM IV Supplies used: J loop Angio Cath. kmavis 10:07 AM Case Delayed No avis 10:07 AM Hair removed from procedure site in holding area using clippers. Bilateral groin prepped with Chloraprep by Kevin Duffy RN, then patient was draped. Skin intact. kmavis 10:08 AM Time: 10:08 Oxygen on at 2 L/min per nasal cannula by Kevin Duffy RN [facility] 10:08 AM Time: 10:08 Patient comfortable and pain free: Yes kmavis 10:08 AM Time: 10:08LOC: 5 = Fully awake and oriented or at pre-proc level kmavis 10:10 AM Vitals capture started with the following parameters, Patient=Adult, Interval=5 min, Initial Syszabsq=970 mmHg, Deflation Rate=5 mmHg, Cuff placed on Left Arm 10:11 AM HR=62 bpm, KBWP=879/77 mmhg, PoN2=931 %, Resp=18 B/min 10:12 AM Time: 10:12 Versed 1 mg Intravenous Given by Kevin Duffy RN [facility] 10:12 AM Time: 10:12 Fentanyl 50 mcg Intravenous Given by Kevin Duffy RN [facility] 10:13 AM Procedure start 10:13 kmavis 10:14 AM ASA Class CLASS II- Mild systemic disease (i.e. well-controlled diabetes, hypertension, asthma, cigarette smoking) kmavis 10:15 AM HR=64 bpm, IKYE=793/72 mmhg, CyD2=417.0 %, Resp=15 B/min 10:16 AM Case Start 10:16 AM CathStat 10:17 AM Pressure channel 1 zeroed. 10:20 AM HR=67 bpm, GVYV=488/77 mmhg, SpO2=99.0 %, Resp=12 B/min, EtCO2=44 mmHg, Comment=nsr 10:21 AM Time out was performed according to hospital policy. Conscious sedation and anesthesia was achieved (see medication log with in this report above) avis 10: AM Time: : Versed 1 mg Intravenous Given by Kevin Duffy RN [facility] : AM Time: 10: Fentanyl 50 mcg Intravenous Given by Kevin Duffy RN [facility] : AM Time: 10:21 10 ml Lidocaine 2% to right groin Subcutaneous Given by Elana Butler MD [facility] : AM Time: : 9 ml Lidocaine 2% to right groin Subcutaneous Given by Elana Butler MD avis 10:23 AM Time: 10:08LOC: 4 = Oriented but drowsy kmavis 10:23 AM Time: 10:08 Patient comfortable and pain free: Yes kmavis 10:23 AM Micro-Introducer Kit utilized for sheath placement kmavis 10:23 AM hand injected 10ml contrast to right groin kmavis 10:24 AM Access obtained by percutaneous puncture. 6Fr 10cm Terumo Caret sheath placed in right Femoral artery. [id number] avis 10:25 AM 5Fr FR 4 [facility] AM 0.035 145cm Navilyst 3mmJ wire [id number] avis 10:25 AM RCA angiography performed in multiple views. kmavis 10:25 AM HR=62 bpm, BYNO=454/75 mmhg, SpO2=99.0 %, Resp=7 B/min, EtCO2=47 mmHg, Comment=nsr 10:26 AM Recorded Pressure: Ao, HR=64, Condition=Condition 1 (Aorta) Ao 117/77/96 10:27 AM Catheter removed avis 10:27 AM 5Fr FL 4 catheter inserted over the wire [facility] 10:27 AM LCA angiography performed in multiple views. kmavis 10:29 AM Recorded Pressure: Ao, HR=68, Condition=Condition 1 (Aorta) Ao 126/80/101 10:30 AM Recorded Pressure: Ao, HR=72, Condition=Condition 1 (Aorta) Ao 123/77/98 10:30 AM Catheter removed avis 10:30 AM HR=78 bpm, JVRP=650/78 mmhg, SpO2=98.0 %, Resp=15 B/min 10:31 AM 5Fr Pigtail catheter [facility] the [facility]31 AM Catheter crossed the aortic valve and was selectively placed in the left ventricle. Pressures recorded on pullback for left heart catheterization. avis 10:31 AM Time: 10:31 Heparin 500 units Intravenous Given by Kevin Duffy RN [facility] 10:32 AM Recorded Pressure: LV, HR=81, Condition=Condition 1 (Left Ventricle) LV 141/14/15 10:32 AM Recorded Pressure: LV, Ao, HR=79, Condition=Condition 1 (Left Ventricle) LV 141/15/16, (Aorta) Ao 139/68/102 10:33 AM Catheter removed kmavis 10:33 AM Procedure completed at 10:33 04/10/2019 kmavis 10:33 AM Did you address KATHERYN flow and Dominance? YesCoronary Dominance: right kmavis 10:34 AM Sign out completed: Radiation Dose 282.86 mGy, 40.9 Gy/cm2 Fluoro Time: 2.2 Isovue 370 - 200ml contrast 60 ml given by Elana Butler MD. Complications: None. The patient was discharged out of the medical lab scientist in stable condition. Sedation minutes 22. Cardiac Rehab Consult needed: No. Confirmed administered medications: Yes kmavis 10:34 AM Isovue 370 - 200ml,1 Bottle(s) used. kmavis 10:34 AM Arterial sheath pulled, Mynx closure device used and was Successful [id number] S/N. kmavis 10:34 AM Estimated Blood Loss: minimal kmavis 10:34 AM Post ECG NSR kmavis 10:35 AM Post Blood Pressure 132/78 kmavis 10:35 AM Information taught Cardiac Cath and Mynx kmavis 10:35 AM Education needs Procedure, Plan of Care, and Disease Process kmavis 10:35 AM Learning barriers :None kmavis 10:35 AM Education Methods Verbal kmavis 10:35 AM HR=72 bpm, XTYP=420/79 mmhg, SpO2=97.0 %, Resp=15 B/min 10:35 AM Education evaluation Able to repeat information kmavis 10:35 AM Site status No bleeding/hematoma - Rt Groin as reported by Indira Santos RN at 10:35 [facility] 10:36 AM Opsite applied kmavis 10:36 AM Plavix, Effient or Brilinta given No kmavis 10:36 AM Delay to floor No [facility]avis 10:36 AM Patient out of room: 10:36 [facility] 10:39 AM Time: 10:23 Patient comfortable and pain free: Yes kmavis 10:39 AM Time: 10:23LOC: 5 = Fully awake and oriented or at pre-proc level kmavis 10:40 AM HR=72 bpm, ESGP=098/77 mmhg, YeM6=904.0 % 10:41 AM Cardiothoracic surgeon consulted by physician [facility] 10:42 AM Family placed in consult room. kmavis 10:42 AM Complications: None kmavis 10:42 AM Patient out of room: 10:42 kmavis 10:42 AM Coronary Dominance: right kmavis 10:42 AM Lesion found in Proximal RCA. Pre Stenosis: 70 Pre KATHERYN Flow: kmavis 10:43 AM Lesion found in Mid RCA. Pre Stenosis: 80 Pre KATHERYN Flow: kmavis 10:43 AM Lesion found in Distal LMCA. Pre Stenosis: 70 Pre KATHERYN Flow: kmavis 10:43 AM Lesion found in Proximal LAD. Pre Stenosis: 70 Pre KATHERYN Flow: kmavis 10:47 AM Lesion found in Mid LAD. Pre Stenosis: 25 Pre KATHERYN Flow: kmavis 10:47 AM Lesion found in Proximal Circumflex. Pre Stenosis: 25 Pre KATHERYN Flow: kmavis 10:48 AM Left Main Coronary Artery with 70% stenosis kmavis 10:48 AM Proximal Left Anterior Descending Coronary Artery with 70% stenosis. If graft is supplying this territory, 0 % stenosis. kmavis 10:48 AM Mid/Distal Left Anterior Descending Coronary Artery and diagonal branches with 25% stenosis. If graft is supplying this area, 0 % stenosis kmavis 10:48 AM Circumflex, Obtuse Marginal, Left Posterior Descending, and Left Posterolateral Coronary Arteries with 25 % stenosis. If graft is supplying this area, 0 % stenosis kmavis 10:48 AM Right Coronary, Right Posterior Descending Arteries with Right Posterolateral and Acute Marginal branches with 80 % stenosis. If graft is supplying this area, 0 % stenosis kmavis 10:52 AM Delay to floor Bed availability kmavis 10:52 AM Report given to Lluvia OG Pt taken to Holding room . 10:52 kmavis 11:15 AM Report given to Miranda OG Pt taken to 2N Room #1. 11:15 [email or web address] 11:15 AM Patient out of room: 11:15 [email or web address] Complications Complication None None Hemodynamics Pressures Site Systolic/A Wave Diastolic/V Wave Mean AO 117 77 96 AO 126 80 101 AO 123 77 98 LV 141 14 15 LV 141 15 16 AO 139 68 102 Post Procedure Information Blood Pressure: 132/78 mmHg Rhythm: NSR Post procedural instructions were given Closure Device Time Device Success/Fail 04/10/2019 10:49:00 AM MynxGrip Successful Site Checks Time Location Status Staff Sheath In? Note 10:35 AM Rt Groin No bleeding/hematoma Indira Santos RN 10:57 AM Rt Groin No bleeding/ No Hematoma Ama Snell RN Pulses Time Site Pre-Procedure Post-Procedure Note 04/10/2019 9:53:00 AM Bilateral DP & PT 2+ 04/10/2019 9:53:00 AM Bilateral radial 2+ Updated by Emerita Jordan, RT(R) on 04/10/2019 11:15:58 AM electronically signed on 04/10/2019 11:16:32 AM with status of Final
--- NOTE | 2019-04-10 12:43 | Cardiothoracic Consult Note ---
Date of Encounter: 04/10/19 Time of Encounter: 12:40 Assessment and Plan (1) Coronary artery disease Current Visit: Yes Status: Acute The assessment and plan as outlined above was discussed with the patient and/or family members who expressed understanding and agreement. All questions were answered. The patient has triple-vessel disease with left main disease and is a candidate for coronary artery bypass grafting. Risks of surgery include , infection, stroke, bleeding, myocardial infarction, clots around the heart, renal or respiratory failure, acute or chronic graft closure, sternal dehiscence and phrenic nerve injury. The procedure, its risks, benefits and alternatives were explained and she does wish to proceed. At this point, she has no questions. I will check liver function tests because of her history of hepatic problems. I will check a transthoracic echocardiogram to rule out valvular disease. We will schedule her for surgery on Saturday. Qualifiers: Coronary Disease-Associated Artery/Lesion type: [place] artery [place] vs. transplanted heart: [place] heart Associated angina: with stable angina Qualified Code(s): I25.118 - Atherosclerotic heart disease of [place] coronary artery with other forms of angina pectoris - History of Present Illness History of present illness: Ms. Reyes is a 68 year old female The patient is a 68-year-old female who presented with chest pain with exertion. No history of myocardial infarction. Cardiac catheterization revealed triple-v essel disease with an 80% blockage in her right coronary artery and a 70% left main lesion. She does have a history of hypertension. No history of hypercholesterolemia or diabetes. Family history is positive for coronary artery disease. She is status post gastric bypass surgery in 2011. She does have a history of pancreatitis and gallbladder disease and is status post cholecystectomy. She has intermittent elevations in her liver function tests. She is status post both hips being replaced and a right knee replacement. Her only blood thinners include aspirin. Social history. She lives in [place] by herself. Does not smoke and does not drink. Review of systems is negative for stroke or TIA. No history of saphenous vein varicosities or strippings. Past Med Surg Social Fam HX - Past Medical History Medical history: arthritis, asthma, fibromyalgia, GERD, hyperlipidemia, hypertension, thyroid disease, other Additional medical history: anemia. Cobb's esophagus Psychiatric history: anxiety, depression - Past Surgical History Surgical History: appendectomy, cholecystectomy, hip replacement, knee replacement, other Additional surgical history: ORIF right femur. [place]. tubal ligation. EGD/Colonoscopy. gastric bypass - Social History Smoking Status: Former smoker Smokeless Tobacco Status: No Alcohol use: none Drug use: none - Family History Mother Hx Family Cancer: Yes Hx Family Neuromuscular Disorders: Yes (parkinsons) Father Hx Family Cardiac Disorders: Yes (heart dx) Medications and Allergies Escitalopram [Lexapro] 20 mg PO DAILY 11/08/15 [History] Carvedilol 3.125 mg PO BID 10/02/17 [History] Lisinopril [Zestril] 40 mg PO DAILY 10/02/17 [History] Acetaminophen [Tylenol] 1,000 mg PO Q6HR 04/10/19 [History] Aspirin [Lo-Dose Aspirin EC] 81 mg PO DAILY 04/10/19 [History] Calcium Carbonate/Vitamin D3 [Calcium 500 + Vit D 200 Caplet] 1 each PO DAILY 04/10/19 [History] Cholecalciferol (Vitamin D3) [Vitamin D] 50,000 unit PO QWEEK 04/10/19 [History] Diclofenac Sodium [Voltaren] 1 appl TP QID PRN 04/10/19 [History] Ferrous Sulfate [Iron] 325 mg PO BID 04/10/19 [History] Pnv No.122/Iron/Folic Acid [ Multi Tablet] 1 each PO DAILY 04/10/19 [History] Zoledronic Acid (Reclast) [Reclast Premix 5 MG/100 ML] 5 mg IV [id number] 04/10/19 [History] hydroCHLOROthiazide [Hydrochlorothiazide] 25 mg PO DAILY 04/10/19 [History] Allergy/AdvReac Type Severity Reaction Status Date / Time meperidine [From Demerol] AdvReac Nausea Verified 10/02/17 09:24 All Systems Review: The remainder of the systems were reviewed and are negative Physical Examination Vital Signs, Last 4 Hours Temp Pulse Resp BP Pulse Ox 04/10/19 11:44 68 18 136/75 97 04/10/19 11:30 98.3 F 63 16 148/94 98 04/10/19 09:36 98.3 F 71 18 132/78 She has bilateral cataracts. She is edentulous. Neck is supple. Trachea in the midline. No thyromegaly or carotid bruits. Lungs are clear to percussion and auscultation. Heart is in a regular rate and rhythm. Abdomen is benign. No tenderness, rebound or guarding. She is status post cholecystectomy and gastric bypass. Extremities without saphenous vein strippings or varicosities. Cranial nerves, motor and sensory intact. Consult Discharge Plan - Plan Referrals: Abi Paulson MD [Primary Care Provider] -
[2019-04-10 13:00] LABS: Eosinophils # 0.1 K/mcL (0.0-0.6); Hemoglobin 8.4 g/dL (11.5-15.4); Immature Granulocytes % 0.3 % (0-4); Lymphocytes # 1.7 K/mcL (0.6-4.6); Lymphocytes % 42.5 %; Mean Corpuscular Hemoglobin 23.5 pg (28.0-33.3); Mean Corpuscular Volume 78.4 fL (83.0-100.0); Mean Platelet Volume 9.6 fL (9.4-12.4); Monocytes # 0.4 K/mcL (0.0-1.3); Monocytes % 8.9 %; Neutrophils # 1.8 K/mcL (1.6-8.9); Platelet Count 229 K/mcL (140-400); Red Blood Count 3.57 M/mcL (3.82-4.97); Segmented Neutrophils % 44.3 %
[2019-04-10 13:12] LABS: Prothrombin Time 11.4 Seconds (9.4-12.1)
[2019-04-10 13:15] LABS: Activated Partial Thrombo Time 31.9 Seconds (26.0-36.0)
[2019-04-10 13:20] LABS: Alanine Aminotransferase 22 Units/L (7-52); Albumin 3.9 g/dL (3.5-5.7); Albumin/Globulin Ratio 1.7 (1.1-2.2); Alkaline Phosphatase 127 Units/L (34-104); Aspartate Amino Transferase 23 Units/L (13-39); BUN/Creatinine Ratio 29 (6-26); Bilirubin,Direct 0.1 mg/dL (0.0-0.2); Bilirubin,Indirect 0.3 mg/dL (0.0-1.2); Bilirubin,Total 0.4 mg/dL (0.3-1.0); Blood Urea Nitrogen 17 mg/dL (8-23); Calcium 9.1 mg/dL (8.6-10.3); Carbon Dioxide 30 mEq/L (23-29); Chloride 104 mEq/L (98-107); Chol/HDL Ratio 3.3 (0-4.9); Cholesterol 185 mg/dL (< 200); Globulin 2.3 g/dL (2.4-3.5); Glucose 91 mg/dL (70-105); HDL Cholesterol 56 mg/dL (40-59); LDL Cholesterol,Calculated 106 mg/dL (0-99); Osmolality,Calculated 291 (280-300); Potassium 3.6 mEq/L (3.5-5.1); Sodium 140 mEq/L (136-145); Total Protein 6.2 g/dL (6.4-8.9); Triglycerides 114 mg/dL (< 150); eGFR For Non-African Americans > 60 (> 60)
[2019-04-10 13:21] LABS: Estimated Average Glucose 128 mg/dl; Hemoglobin A1C 6.1 %
[2019-04-10 14:16] LABS: Bilirubin,Urine Negative (Negative); Blood,Urine Negative (Negative); Clarity,Urine Clear (Clear); Color,Urine Yellow (Yellow); Glucose,Urine (UA) Normal (Normal); Ketones,Urine Negative (Negative); Leukocyte Esterase,Urine Negative (Negative); Nitrite,Urine Negative (Negative); Protein,Urine Negative (Neg-Trace); Specific Gravity,Urine > 1.030 (1.010-1.025); Urobilinogen,Urine Normal (Normal)
[2019-04-11] MEDS ORDERED: NON-FORMULARY MEDICATION 1 EACH EACH (Diclofenac Sodium [Voltaren] 1 APPL) TP PRN (07:31)
--- NOTE | 2019-04-11 08:16 | Cardiothoracic Progress Note ---
Date of Encounter: 04/11/19 Time of Encounter: 08:13 - Assessment and plan (1) Coronary artery disease Current Visit: Yes Status: Acute The patient's laboratory reveals that she is anemic. The patient states that this is a chronic problem so it is the chronic anemia of chronic disease. She states that she has had scoped before and is being scheduled for additional scopes presently. These would have to wait until after open heart surgery as she does have left main disease. She states that she occasionally takes iron and this helps. She also states that she has had only polyps in the past. I told her that she will most certainly will require transfusion during or after surgery. She has no questions concerning Saturday's open-heart surgery. Qualifiers: Coronary Disease-Associated Artery/Lesion type: [place] artery [place] vs. transplanted heart: [place] heart Associated angina: with stable angina Qualified Code(s): I25.118 - Atherosclerotic heart disease of [place] coronary artery with other forms of angina pectoris - Subjective Interval history: The patient has had no chest pain. Vital Signs, Last 4 Hours Temp Pulse Resp BP Pulse Ox 04/11/19 07:40 98.0 F 75 18 136/73 97 Oxgyen Flow Rate Oxygen Flow Rate (LPM) 0 Clinical Data, last 8 Hours Output, Urine Amount 0 Weight 04/09/19 04/10/19 04/11/19 23:59 23:59 23:59 Weight 86.636 kg 87.3 kg Lungs are clear to percussion and auscultation. Heart is in a regular rate and rhythm. - Labs 04/10/19 12:44 04/10/19 12:44 Lab Results, Last 24 hours 04/10/19 04/10/19 04/10/19 12:44 12:44 12:44 WBC 4.0 L Hgb 8.4 L Hct 28.0 L Plt Count 229 INR 1.0 APTT 31.9 Sodium 140 Potassium 3.6 Chloride 104 Carbon Dioxide 30 H BUN 17 Creatinine 0.59 L Glucose 91 Calcium 9.1 Total Bilirubin 0.4 AST 23 ALT 22 Alkaline Phosphatase 127 H Consult Discharge Plan - Plan Referrals: Abi Paulson MD [Primary Care Provider] -
[2019-04-11] MEDS ORDERED: Methyl Salicylate/Menthol 28 GM TUBE TP PRN (09:09)
[2019-04-11] MEDS: Prenatal Vit/FA 1 EACH TABLET PO SCH (09:27)
--- NOTE | 2019-04-11 09:48 | Cardiology Progress Note ---
Date of Encounter: 04/11/19 Time of Encounter: 09:46 Assessment and Plan (1) Coronary artery disease Current Visit: Yes Status: Acute LHC completed for ongoing chest pain and abnormal stress test. Pt found to have severe 3V CAD including left main disease. CT surgery evaluated and patient is planned for surgery on saturday. Noted to have chronic anemia. Iron supplement restarted. No signs of acute bleeding. TTE pending. Asa, statin, and bb started. Pt denies chest pain currently. SL NTG ordered PRN. Pt denies questions. Will start DVT prophylaxis if okay with CT surgery. Qualifiers: Coronary Disease-Associated Artery/Lesion type: [place] artery [place] vs. transplanted heart: [place] heart Associated angina: with stable angina Qualified Code(s): I25.118 - Atherosclerotic heart disease of [place] coronary artery with other forms of angina pectoris (2) Abnormal stress test Current Visit: Yes Status: Acute LHC ordered for abnormal EKG and chest pain. See plan above. (3) Iron deficiency anemia Current Visit: Yes Status: Acute Reports long history of anemia. Hgb recently seen to b lower than ususal. Hgb at baseline today. No signs of bleeding. Qualifiers: Iron deficiency anemia type: unspecified iron deficiency Qualified Code(s): D50.9 - Iron deficiency anemia, unspecified (4) HTN (hypertension) Current Visit: No Status: Chronic B/p acceptable. Qualifiers: Hypertension type: essential hypertension Qualified Code(s): I10 - Essential (primary) hypertension Discussion w patient/family: The assessment and plan as outlined above was discussed with the patient and/or family members who expressed understanding and agreement. All questions were answered. Thank you for involving us in the care of your patient. Please call with any questions. Subjective Principal diagnosis: Severe CAD Interval history: Pt sitting in chair. Denies chest pain overnight. Denies signs of bleeding. Objective Vital Signs, Last 4 Hours Temp Pulse Resp BP Pulse Ox 04/11/19 07:40 98.0 F 75 18 136/73 97 General: Conversant, No Apparent Distress HEENT: Atraumatic, Normocephaly, Mucus Membranes Moist Neck: No JVD, Normal carotid pulses Cardiac: Reg Rate and Rhythm, Normal S1 and S2, No Murmur Lungs: Normal Breath Sounds, No Wheeze, Rales, Rhonchi Neuro: Alert and responsive, No focal deficits noted Abdomen: Soft, Non-Tender Skin: No rashes noted on visualized skin Musculoskeletal: No Chest Wall Tenderness Extremities: No Clubbing, No Cyanosis, No Edema, Normal Pulses, Other (Right femoral access without hematoma) Results 04/11/19 09:44 04/10/19 12:44 Lab Results 04/10/19 04/10/19 04/10/19 12:44 12:44 12:44 WBC 4.0 L Hgb 8.4 L Hct 28.0 L Plt Count 229 INR 1.0 APTT 31.9 Sodium 140 Potassium 3.6 Chloride 104 Carbon Dioxide 30 H BUN 17 Creatinine 0.59 L Glucose 91 Calcium 9.1 Total Bilirubin 0.4 AST 23 ALT 22 Alkaline Phosphatase 127 H - Imaging and Cardiology Echo: pending Cardiac cath: report reviewed - EKG Interpretation EKG results cardiology: personally reviewed Consult Discharge Plan - Plan Referrals: Abi Paulson MD [Primary Care Provider] -
[2019-04-11 10:20] LABS: Basophils % 0.8 %; Eosinophils # 0.2 K/mcL (0.0-0.6); Eosinophils % 2.9 %; Hematocrit 30.4 % (35.3-44.9); Immature Granulocytes % 0.4 % (0-4); Lymphocytes # 1.4 K/mcL (0.6-4.6); Lymphocytes % 26.3 %; Mean Corpuscular HGB Conc 29.6 g/dL (31.6-35.5); Mean Corpuscular Hemoglobin 23.6 pg (28.0-33.3); Mean Corpuscular Volume 79.8 fL (83.0-100.0); Mean Platelet Volume 9.9 fL (9.4-12.4); Monocytes # 0.4 K/mcL (0.0-1.3); Monocytes % 7.6 %; Neutrophils # 3.3 K/mcL (1.6-8.9); Platelet Count 237 K/mcL (140-400); Red Blood Count 3.81 M/mcL (3.82-4.97); Red Cell Distribution Width 17.3 % (11.5-14.5)
[2019-04-11 10:35] LABS: BUN/Creatinine Ratio 18 (6-26); Blood Urea Nitrogen 12 mg/dL (8-23); Calcium 9.5 mg/dL (8.6-10.3); Carbon Dioxide 28 mEq/L (23-29); Chloride 105 mEq/L (98-107); Glucose 94 mg/dL (70-105); Osmolality,Calculated 290 (280-300); Potassium 4.1 mEq/L (3.5-5.1); Sodium 140 mEq/L (136-145); eGFR For Non-African Americans > 60 (> 60)
[2019-04-11] MEDS ORDERED: Nitroglycerin 0.4 MG TAB.SUBL SL PRN (10:44)
[2019-04-11] MEDS: *HR* Heparin 5,000 UNIT/ML VIAL SQ SCH ×2 (12:44→18:26)
[2019-04-12] MEDS: *HR* Heparin 5,000 UNIT/ML VIAL SQ SCH ×2 (05:03→17:49)
[2019-04-12] MEDS: Prenatal Vit/FA 1 EACH TABLET PO SCH (08:11)
--- NOTE | 2019-04-12 10:29 | Cardiothoracic Progress Note ---
Date of Encounter: 04/12/19 Time of Encounter: 10:28 - Assessment and plan (1) CAD (coronary artery disease) Current Visit: Yes Status: Acute The assessment and plan as outlined above was discussed with the patient and/or family members who expressed understanding and agreement. All questions were answered. cabg tomorrow morning. Qualifiers: Coronary Disease-Associated Artery/Lesion type: [place] artery [place] vs. transplanted heart: [place] heart Associated angina: with unstable angina Qualified Code(s): I25.110 - Atherosclerotic heart disease of [place] coronary artery with unstable angina pectoris - Subjective Interval history: no f/c/s/n/v. no sob or cp Vital Signs, Last 4 Hours Temp Pulse Resp BP Pulse Ox 04/12/19 06:31 98.0 F 65 16 112/76 96 Oxgyen Flow Rate Oxygen Flow Rate (LPM) 0 Clinical Data, last 8 Hours Output, Urine Amount 100 Weight 04/10/19 04/11/19 04/12/19 23:59 23:59 23:59 Weight 86.636 kg 87.3 kg 88.4 kg - Physical Examination General: Conversant, No Apparent Distress, Well developed, Well nourished HEENT: Atraumatic, Normocephaly - Labs 04/11/19 09:44 04/11/19 09:44 Lab Results, Last 24 hours 04/11/19 09:44 Sodium 140 Potassium 4.1 Chloride 105 Carbon Dioxide 28 BUN 12 Creatinine 0.65 Glucose 94 Calcium 9.5 Consult Discharge Plan - Plan Referrals: Abi Paulson MD [Primary Care Provider] -
--- NOTE | 2019-04-12 11:28 | Cardiology Progress Note ---
Date of Encounter: 04/12/19 Time of Encounter: 11:21 Assessment and Plan (1) Coronary artery disease Current Visit: Yes Status: Acute LHC completed for ongoing chest pain and abnormal stress test. Pt found to have severe 3V CAD including left main disease. CT surgery evaluated and patient is planned for surgery on saturday. Noted to have chronic anemia. Iron supplement restarted. No signs of acute bleeding. Hemoglobin is stable TTE LVEF 65%. Mild diastolic dysfunction. Mild tricuspid regurgitation. No pulmonary hypertension. Asa, statin, and bb started. Pt denies chest pain currently. SL NTG ordered PRN. Pt denies questions. CT surgery planning for CABG tomorrow. Qualifiers: Coronary Disease-Associated Artery/Lesion type: [place] artery [place] vs. transplanted heart: [place] heart Associated angina: with stable angina Qualified Code(s): I25.118 - Atherosclerotic heart disease of [place] coronary artery with other forms of angina pectoris (2) Abnormal stress test Current Visit: Yes Status: Acute LHC ordered for abnormal EKG and chest pain. See plan above. (3) Iron deficiency anemia Current Visit: Yes Status: Acute Reports long history of anemia. Hgb recently seen to b lower than ususal. Hgb at baseline today. No signs of bleeding. Qualifiers: Iron deficiency anemia type: unspecified iron deficiency Qualified Code(s): D50.9 - Iron deficiency anemia, unspecified (4) HTN (hypertension) Current Visit: No Status: Chronic B/p acceptable. Qualifiers: Hypertension type: essential hypertension Qualified Code(s): I10 - Essential (primary) hypertension Discussion w patient/family: The assessment and plan as outlined above was discussed with the patient and/or family members who expressed understanding and agreement. All questions were answered. Thank you for involving us in the care of your patient. Please call with any questions. Subjective Principal diagnosis: Severe CAD Interval history: Pt sitting in bed. Denies chest pain overnight. Denies signs of bleeding. Objective Vital Signs, Last 4 Hours Temp Pulse Resp BP Pulse Ox 04/12/19 11:18 98.5 F 59 16 121/82 96 General: Conversant, No Apparent Distress HEENT: Atraumatic, Normocephaly, Mucus Membranes Moist Neck: No JVD, Normal carotid pulses Cardiac: Reg Rate and Rhythm, Normal S1 and S2, No Murmur Lungs: Normal Breath Sounds, No Wheeze, Rales, Rhonchi Neuro: Alert and responsive, No focal deficits noted Abdomen: Soft, Non-Tender Skin: No rashes noted on visualized skin Musculoskeletal: No Chest Wall Tenderness Extremities: No Clubbing, No Cyanosis, No Edema, Normal Pulses Results 04/11/19 09:44 04/11/19 09:44 - Imaging and Cardiology Echo: report reviewed Cardiac cath: report reviewed - EKG Interpretation EKG results cardiology: personally reviewed Consult Discharge Plan - Plan Referrals: Abi Paulson MD [Primary Care Provider] -
[2019-04-12] MEDS: Chlorhexidine Rinse 15 ML MOUTHWASH MM SCH (21:47)
[2019-04-13] MEDS: Chlorhexidine Rinse 15 ML MOUTHWASH MM SCH ×2 (05:17→21:19)
[2019-04-13] MEDS: *HR* Heparin 5,000 UNIT/ML VIAL SQ SCH ×2 (05:18→20:29)
[2019-04-13] MEDS ORDERED: CeFAZolin Syr 2,000MG/20 ML 2,000 MG/20 ML SYRINGE IVPB ONE (06:00)
[2019-04-13] MEDS ORDERED: Aspirin 81 MG TAB.CHEW PO ONE (06:00)
[2019-04-13] MEDS ORDERED: *HR* Rocuronium Bromide 50 MG/5 ML VIAL ONE (06:44)
[2019-04-13] MEDS ORDERED: *HR* PHENYLEPHRINE 1,000 MCG/10 ML SYRINGE IVP ONE (06:44)
[2019-04-13] MEDS ORDERED: *HR* Etomidate 20 MG/10 ML AMPUL IVP ONE (06:45)
[2019-04-13] MEDS ORDERED: Tranexamic Acid 1,000 MG/10 ML VIAL ONE ×2 (06:45→10:46)
[2019-04-13] MEDS ORDERED: Famotidine 20 MG/2 ML VIAL ONE (06:45)
[2019-04-13] MEDS ORDERED: Protamine Sulfate 250 MG/25 ML VIAL IVP ONE (06:45)
[2019-04-13] MEDS ORDERED: *HR* Midazolam HCl 5 MG/5 ML VIAL IVP ONE (06:55)
[2019-04-13] MEDS ORDERED: *HR* FentaNYL (PF) 1,000 MCG/20 ML VIAL ONE (06:55)
[2019-04-13] MEDS ORDERED: Nitroglycerin 25 MG/250 ML INFUS..BTL IVC ONE (06:59)
[2019-04-13] MEDS ORDERED: NiCARdipine 2.5 MG/10 ML Syringe IVPB ONE ×2 (06:59→09:46)
[2019-04-13] MEDS ORDERED: Verapamil 5 MG/2 ML VIAL ONE (07:02)
--- NOTE | 2019-04-13 07:20 | Anesthesia Evaluation PreOp ---
Date of Encounter: 04/13/19 Time of Encounter: 07:17 - Past History Planned Operation: CABG Cardiac History: Angina, HTN, Hyperlipidemia, Other (CAD) Pulmonary History: Former smoker, Asthma [employer]TAIN History: Denies Any Significant HX Other Medical History: GERD, Other (Cobb's esophagus, hx pancreatitis) Anesthesia History: No Prior Anesthetic Complications, Past Anesthesia (bilat DOMI, right TKA, appy, gaurav, Scott) Alcohol Use: none Drug use: none Medications and Allergies Carvedilol 3.125 mg PO BID 10/02/17 [History] Lisinopril [Zestril] 40 mg PO DAILY 10/02/17 [History] Acetaminophen [Tylenol] 1,000 mg PO Q6HR 04/10/19 [History] Aspirin [Lo-Dose Aspirin EC] 81 mg PO DAILY 04/10/19 [History] Calcium Carbonate/Vitamin D3 [Calcium 500 + Vit D 200 Caplet] 1 each PO DAILY 0 04/10/19 [History] Cholecalciferol (Vitamin D3) [Vitamin D] 50,000 unit PO TH 04/10/19 [History] Diclofenac Sodium [Voltaren] 1 appl TP QID PRN 04/10/19 [History] Escitalopram [Lexapro] 20 mg PO DAILY 04/10/19 [History] Ferrous Sulfate [Iron] 325 mg PO BID 04/10/19 [History] Pnv No.122/Iron/Folic Acid [ Multi Tablet] 1 each PO DAILY 04/10/19 [History] Zoledronic Acid (Reclast) [Reclast Premix 5 MG/100 ML] 5 mg IV [id number] 04/10/19 [History] hydroCHLOROthiazide [Hydrochlorothiazide] 25 mg PO DAILY 04/10/19 [History] Allergy/AdvReac Type Severity Reaction Status Date / Time meperidine [From Demerol] AdvReac Nausea Verified 10/02/17 09:24 - Meds/Allergy Pre-op Review Medications Reviewed: Yes Allergies Reviewed: Yes Beta Blockers on Current Med List: Yes If Beta Blockers taken, Date/Time (Last Dose taken): today 05 Anesthesia Results - Labs 04/11/19 09:44 04/11/19 09:44 - Imaging Additional studies: echo: Impressions: LVEF 65%. Normal LV chamber size and function. Mild concentric left ventricular hypertrophy. Mild left ventricular diastolic dysfunction. Normal right ventricular structure and function. No evidence of a PFO with agitated saline contrast. Mild tricuspid regurgitation. No pulmonary hypertension. Left Ventricular Wall Motion: Rest Echo Findings All wall segments showed normal motion. Cath: Indications: Unstable Angina Impressions: There is severe RCA disease There is severe distal Left main Recommendations: Optimal medical therapy of patient's disease. Aggressive risk factor modification. Suggest patient have Elective coronary artery bypass surgery. Coronary Dominance: right Lesion Findings/Interventions * Left Main Coronary Artery There is a 70% stenosis in the Distal LMCA. * Left Anterior Descending There is a 70% stenosis in the Proximal LAD. There is a 25% stenosis in the Mid LAD. * Circumflex There is a 25% stenosis in the Proximal Circumflex. * Right Coronary Artery There is a 70% stenosis in the Proximal RCA. There is a 80% stenosis in the Mid RCA. nuclear stress: Impression: Perfusion imaging was positive for ischemia. There is a small sized reversible perfusion defect which is mild in intensity in the mid-anterolateral segment. Exercise ECG is positive for ischemia in leads II, II, aVF, V4-V6. There was [address] depression noted in early recovery Exercise capacity was fair. Patient had chest pain with stress. Gated EF = 66%. There is no evidence of TID. Anesthesia Exam Selected Entries 04/13/19 04:19 Temperature 98.1 F Pulse Rate 73 Respiratory Rate 18 Blood Pressure 135/83 O2 Sat by Pulse Oximetry 96 Oxygen Delivery Method Room Air Weight: 88kg NPO (# of Hours): 8 - HEENT Pupil (Motor): EOMI Mallampati: II Teeth: Edentulous Oral Opening: Greater than 3 - [employer] LOC: Oriented [employer] Motor: Normal RUE, Normal LUE, Normal RLE, Normal LLE, Normal Face [employer] Sensory: Normal: RUE, LUE, RLE, LLE, Face - Cardiac Rhythm: Regular Murmur: None - Pulmonary Breath Sounds: bilateral Clear Respiratory Effort: Symmetrical Anesthesia Assess/Plan ASA Score: 4 Level of consciousness: Cooperative, Oriented, Tranquil Anesthetic Plan: General Monitoring Plan: Standard Monitors, A-Line, PAC, CHA Recovery Plan: ICU (agrees to GA, lines, CHA, and blood products)
[2019-04-13] MEDS ORDERED: *HR* Phenylephrine 10 MG/ML VIAL IVC ONE (07:36)
[2019-04-13] MEDS ORDERED: *HR* Magnesium Sulfate 2 GM/50 ML PIGGYBACK IVPB ONE (07:36)
[2019-04-13] MEDS ORDERED: *HR* Heparin 10,000 UNIT/10 ML VIAL IV ONE (07:36)
[2019-04-13] MEDS ORDERED: Mannitol 25% vial 12.5 GM/50 ML VIAL IVP ONE (07:36)
[2019-04-13] MEDS ORDERED: Tranexamic Acid 1,000 MG/10 ML VIAL IVPB ONE (07:36)
[2019-04-13] MEDS ORDERED: Albumin Human 25% 25 GM/100 ML IV.SOLN IV ONE (07:36)
[2019-04-13] MEDS ORDERED: Lidocaine 2% Syringe 100 MG/5 ML IV ONE (07:36)
[2019-04-13] MEDS ORDERED: Norepinephrine 4 MG in D5% in Water 250 ML IVC PRN (07:45)
[2019-04-13] MEDS ORDERED: Dextrose 50 % in Water (Vial) 30 ML, Sodium Bicarbonate 20 MEQ, Potassium Chloride 15 M... TH ONE (07:45)
[2019-04-13] MEDS ORDERED: Insulin Human Regular 100 UNIT in 0.9 % Sodium Chloride 100 ML IV PRN (07:45)
[2019-04-13] MEDS ORDERED: Dextrose 50 % in Water (Vial) 30 ML, Sodium Bicarbonate 20 MEQ, Lidocaine 1% 5 ML, Insu... TH ONE ×3 (07:45)
[2019-04-13] MEDS ORDERED: Heparin 15,000 UNIT in 0.9 % Sodium Chloride 500 ML IV ONE (07:45)
[2019-04-13 08:04] LABS: ABG Base Excess 1 mEq/L (-2 to 3); ABG Chloride 108 mEq/L (98-107); ABG Glucose 98 mg/dL (60-95); ABG HCO3 28 mEq/L (21-27); ABG Oxygen Saturation 99 % (95-98); ABG PCO2 57 mmHg (35-45); ABG PO2 171 mmHg (85-104); ABG TCO2 30 mEq/L (20-26)
[2019-04-13] MEDS ORDERED: *HR* Atropine Sulfate 1 MG/ML VIAL ONE (08:38)
[2019-04-13] MEDS ORDERED: niCARdipine 20 MG/200 ML MLS IVC ONE (08:43)
--- NOTE | 2019-04-13 09:03 | Anesthesia Procedures ---
Date of Encounter: 04/13/19 Time of Encounter: 07:50 Procedures: Anesthesia - Arterial Line Consent obtained: written consent Sedation: Versed (mg): 2 Sedation: Fentanyl (mcg): 100 Supplemental Oxygen via Nasal Cannula (L/min): 2 Local Anesthetic: Lidocaine 1% Amount of Anesthetic used (mls): 1 Size (Gauge): 20 Length (inches): 5 Technique Used: sterile prep, guide wire technique, direct puncture technique Post-Procedure: line taped into place, dry sterile dressing placed Patient tolerated procedure: well, no complications Complications: none Site: Radial L - Central Line Placement Right IJ Consent obtained: written consent Time out performed: Yes Patient placed on monitor/pulse ox: Yes prep: mask, gown, gloves Central line prep: Chlorhexidine scrub, sterile drapes applied Ultrasound used for placement: Yes Technique: Seldinger Lumen Inserted: Introducer Post procedure: sutured in place, good blood return, all ports aspirated, flushed, capped, sterile dressing applied Patient tolerated procedure: well, no complications Complications: none Comments: introducer placed easily, [place] placed without arrythmias, wedge approx 48cm
[2019-04-13 09:11] LABS: ABG Base Excess -2 mEq/L (-2 to 3); ABG Chloride 110 mEq/L (98-107); ABG Glucose 150 mg/dL (60-95); ABG HCO3 23 mEq/L (21-27); ABG Ionized Calcium 1.08 mmol/L (1.15-1.35); ABG Oxygen Saturation 97 % (95-98); ABG PCO2 42 mmHg (35-45); ABG PH 7.35 pH Units (7.32-7.45); ABG PO2 92 mmHg (85-104); ABG TCO2 25 mEq/L (20-26)
[2019-04-13 09:55] LABS: ABG Base Excess 2 mEq/L (-2 to 3); ABG Chloride 102 mEq/L (98-107); ABG Glucose 239 mg/dL (60-95); ABG HCO3 26 mEq/L (21-27); ABG Ionized Calcium 1.03 mmol/L (1.15-1.35); ABG Oxygen Saturation 100 % (95-98); ABG PCO2 41 mmHg (35-45); ABG PH 7.41 pH Units (7.32-7.45); ABG PO2 351 mmHg (85-104); ABG TCO2 28 mEq/L (20-26)
[2019-04-13 10:32] LABS: ABG Base Excess 5 mEq/L (-2 to 3); ABG Chloride 102 mEq/L (98-107); ABG Glucose 173 mg/dL (60-95); ABG HCO3 29 mEq/L (21-27); ABG Ionized Calcium 1.01 mmol/L (1.15-1.35); ABG Oxygen Saturation 100 % (95-98); ABG PCO2 43 mmHg (35-45); ABG PH 7.45 pH Units (7.32-7.45); ABG PO2 541 mmHg (85-104); ABG TCO2 31 mEq/L (20-26)
[2019-04-13 10:37] LABS: ABG Base Excess 2 mEq/L (-2 to 3); ABG Chloride 100 mEq/L (98-107); ABG Glucose 123 mg/dL (60-95); ABG HCO3 27 mEq/L (21-27); ABG Oxygen Saturation 100 % (95-98); ABG PCO2 45 mmHg (35-45); ABG PH 7.39 pH Units (7.32-7.45); ABG PO2 511 mmHg (85-104); ABG TCO2 29 mEq/L (20-26)
[2019-04-13 10:50] LABS: ABG Base Excess 3 mEq/L (-2 to 3); ABG Chloride 102 mEq/L (98-107); ABG Glucose 97 mg/dL (60-95); ABG HCO3 28 mEq/L (21-27); ABG Ionized Calcium 1.02 mmol/L (1.15-1.35); ABG Oxygen Saturation 100 % (95-98); ABG PCO2 46 mmHg (35-45); ABG PH 7.39 pH Units (7.32-7.45); ABG PO2 517 mmHg (85-104); ABG TCO2 29 mEq/L (20-26)
[2019-04-13] MEDS ORDERED: Albumin Human 5% 50.0 GM/1,000 ML VIAL ONE (11:02)
[2019-04-13] MEDS ORDERED: *HR* Dextrose 50 % in Water (Syg) 50 ML SYRINGE ONE (11:07)
[2019-04-13 11:09] LABS: ABG Base Excess -1 mEq/L (-2 to 3); ABG Chloride 106 mEq/L (98-107); ABG Glucose 68 mg/dL (60-95); ABG HCO3 24 mEq/L (21-27); ABG Ionized Calcium 1.53 mmol/L (1.15-1.35); ABG Oxygen Saturation 99 % (95-98); ABG PCO2 40 mmHg (35-45); ABG PH 7.38 pH Units (7.32-7.45); ABG PO2 127 mmHg (85-104); ABG TCO2 25 mEq/L (20-26)
[2019-04-13] MEDS ORDERED: Ondansetron 4 MG/2 ML VIAL IVP PRN (11:27)
[2019-04-13] MEDS ORDERED: *HR* Dextrose 50 % in Water (Syg) 50 ML SYRINGE IVP PRN (11:27)
[2019-04-13] MEDS ORDERED: Naloxone 0.4 MG/ML INJ IVP PRN (11:27)
[2019-04-13] MEDS ORDERED: Acetaminophen 325 MG TABLET PO PRN (11:27)
[2019-04-13] MEDS ORDERED: Potassium Chloride 40 MEQ/200 ML BAG IVPB PRN (11:27)
[2019-04-13] MEDS ORDERED: *HR* Promethazine 25 MG/ML VIAL IVP PRN (11:27)
[2019-04-13] MEDS ORDERED: Insulin Regular, Human 100 UNIT/ML IV PRN (11:27)
[2019-04-13] MEDS ORDERED: Nitroglycerin 25 MG/250 ML INFUS..BTL IVC SCH (11:30)
[2019-04-13] MEDS ORDERED: Norepinephrine 4 MG in D5% in Water 250 ML IVC SCH (11:30)
[2019-04-13] MEDS ORDERED: Insulin Human Regular 100 UNIT in 0.9 % Sodium Chloride 100 ML IVC SCH (11:30)
[2019-04-13] MEDS: niCARdipine 20 MG/200 ML MLS IVC SCH ×2 (11:50→16:12)
[2019-04-13 12:28] LABS: ABG Base Excess 2 mEq/L (-2 to 3); ABG HCO3 27 mEq/L (21-27); ABG Oxygen Saturation 96 % (95-98); ABG PCO2 43 mmHg (35-45); ABG PO2 85 mmHg (85-104); ABG TCO2 28 mEq/L (20-26); Blood Gas Modality VC; Blood Gas PEEP 5 cm H2O; Blood Gas Respiration Rate 10; Blood Gas VT 600 cc
--- NOTE | 2019-04-13 12:34 | Operative Note ---
Date of procedure: 04/13/19 Pre-op diagnosis: Coronary artery disease Post-op diagnosis: same Procedure: Coronary artery bypass grafting 3 with the left internal mammary artery to the LAD and saphenous vein grafts to the obtuse marginal branch of the circumflex and posterior descending branch of the right coronary artery. Anesthesia: GETA Surgeon: Kirill Kelly Was there an support assistant present: Yes Drier Transfer Car Operator: Cirilo Pascual Estimated blood loss (cc): 500 Specimen: none Condition: stable Disposition: ICU Procedure in Detail: The patient is a 68-year-old female who has a history of a gastric bypass in the past. She has had chronic anemia and has been scoped many times. She has only had polyps found so far. She is due for a repeat scope soon. Cardiac catheterization revealed triple-vessel disease with left main disease and she was referred for surgery. She was brought to the operating room where she was prepped and draped in standard fashion. The right greater saphenous vein was harvested from the right ankle to the right groin. This was done through 2 small incisions using a scope. These incisions were subsequently closed with a deep layer of 0 Vicryl and a 2-0 Vicryl subcuticular stitch. Standard median sternotomy was performed. The left internal mammary artery was harvested in standard fashion. Following this, the standard sternal sales representative adding machines was inserted. Pericardium was opened in the midline and suspended with 2-0 silk stay sutures. A double pursestring of 20 Surgilon was placed in the aorta for the aortic cannulation site. A pursestring of 20 Surgilon was placed in the right atrial appendage for the venous uptake. The patient was heparinized. The aorta was cannulated without difficulty. 2 stage venous uptake cannula was inserted through the right atrial appendage. A pursestring of 3-0 silk was placed in the aorta and the cardioplegia needle was inserted through here. This was also used is an active and passive aortic vent. The patient was placed on cardiopulmonary bypass and cooled to 33 degrees. At this point, the aorta was crossclamped and a liter of antegrade cardioplegia was given. Topical cooling with iced saline slush was also used. Attention was first turned to the right coronary artery. The posterior descending branch was dissected free with the Ment[place] blade and opened with the Ment[place] blade and the [place] scissors. This was a small vessel and had a lumen of 1 mm. A standard end-to-side anastomosis was constructed using the saphenous vein and a 7-0 Prolene. When this is completed, the patient received an additional dose of antegrade cardioplegia. Attention was turned to the circumflex. The obtuse marginal branch was dissected free with the Mentasta blade and opened with a Mentasta blade and the [place] scissors. This had a lumen of 1-1/2 mm and was relatively free of disease. A standard end-to-side anastomosis was constructed using the saphenous vein and a 7-0 Prolene. At this point, the patient received a last dose of antegrade cardioplegia. The LAD was dissected free with the Mentasta blade and opened with a Mentasta blade and the [place] scissors. This had a lumen of 1-1/2 mm and was relatively free of disease. A standard end-to-side anastomosis was constructed using the mammary artery and a 7-0 Prolene. When this was completed, the previously placed bulldog clamp was removed and the hemostasis was good. Pedicle was tacked to the surface of the heart using 2 interrupted 5-0 silk sutures. Cross-clamp was removed and rewarming was begun. A side-biting clamp was placed on the aorta and the cardioplegia needle was removed. 2 holes were made in the aorta using the [place] blade and the 4.0 mm aortic punch. 2 proximal anastomoses were constructed in standard fashion using the saphenous veins and 6-0 Prolene's. When this is completed, the side-biting clamp was removed. Grafts were de-aired using a #25-gauge needle and the previously placed bulldog clamps were removed. Distal anastomoses were inspected and found to be hemostatic. Proximal anastomoses were marked with a marker from [employer] [place] sponge. A pair of ventricular pacing wires was left. A 32 angled chest tube to the left pleural space. A 32 angle chest tube to the right pleural space. A 42 mediastinal chest tube. The patient was weaned from bypass and decannulated. Protamine was given. Hemostasis was good. Pericardium was left open. Sternum was closed with #7 sternal wires in simple and [id number] fashion. Fascia was run with #1 Vicryl. Subcutaneous tissues with a 2-0 Vicryl. Skin was closed with a 3-0 Vicryl subcuticular stitch. The patient tolerated the procedure well and was returned to intensive care unit in satisfactory and stable condition. Total bypass time was 81 minutes. Total cross-clamp time was 47 minutes. She been cooled to 33 degrees centigrade. We did use platelet rich and platelet poor plasma to the sternum and tissues above the sternum.
[2019-04-13 12:38] LABS: Basophils # 0.1 K/mcL (0.0-0.2); Basophils % 0.3 %; Eosinophils # 0.2 K/mcL (0.0-0.6); Eosinophils % 1.2 %; Hematocrit 26.1 % (35.3-44.9); Hemoglobin 7.9 g/dL (11.5-15.4); Immature Granulocytes % 0.9 % (0-4); Lymphocytes # 3.6 K/mcL (0.6-4.6); Lymphocytes % 19.9 %; Mean Corpuscular HGB Conc 30.3 g/dL (31.6-35.5); Mean Corpuscular Hemoglobin 23.9 pg (28.0-33.3); Mean Corpuscular Volume 78.9 fL (83.0-100.0); Mean Platelet Volume 10.4 fL (9.4-12.4); Monocytes # 1.4 K/mcL (0.0-1.3); Monocytes % 7.9 %; Neutrophils # 12.6 K/mcL (1.6-8.9); Platelet Count 162 K/mcL (140-400); Red Blood Count 3.31 M/mcL (3.82-4.97); Segmented Neutrophils % 69.8 %
[2019-04-13 12:45] LABS: INR 1.2
[2019-04-13 12:48] LABS: Activated Partial Thrombo Time 29.8 Seconds (26.0-36.0)
[2019-04-13 12:54] LABS: BUN/Creatinine Ratio 24 (6-26); Blood Urea Nitrogen 15 mg/dL (8-23); Calcium 9.7 mg/dL (8.6-10.3); Carbon Dioxide 26 mEq/L (23-29); Chloride 108 mEq/L (98-107); Glucose 91 mg/dL (70-105); Magnesium 2.4 mg/dL (1.6-2.6); Osmolality,Calculated 292 (280-300); Sodium 141 mEq/L (136-145); eGFR For Non-African Americans > 60 (> 60)
[2019-04-13] MEDS: *HR* OxyCODONE/APAP 5/325 TABLET PO PRN ×2 (13:13→21:20)
[2019-04-13] MEDS: *HR* FentaNYL (PF) 100 MCG/2 ML VIAL IVP PRN ×4 (13:27→21:21)
[2019-04-13] MEDS: Prenatal Vit/FA 1 EACH TABLET PO SCH (13:32)
[2019-04-13 15:05] LABS: ABG Base Excess 4 mEq/L (-2 to 3); ABG HCO3 29 mEq/L (21-27); ABG Oxygen Saturation 98 % (95-98); ABG PCO2 46 mmHg (35-45); ABG PH 7.41 pH Units (7.32-7.45); ABG PO2 107 mmHg (85-104); ABG TCO2 30 mEq/L (20-26); Blood Gas Pressure Support 8 cm H2O
[2019-04-13] MEDS: 0.9 % Sodium Chloride 1,000 ML IVC SCH (15:17)
[2019-04-13 16:09] LABS: ABG Base Excess 3 mEq/L (-2 to 3); ABG HCO3 29 mEq/L (21-27); ABG Oxygen Saturation 96 % (95-98); ABG PCO2 51 mmHg (35-45); ABG PH 7.37 pH Units (7.32-7.45); ABG PO2 90 mmHg (85-104); ABG TCO2 31 mEq/L (20-26)
[2019-04-13] MEDS: MOM Conc 10 ML UD.LIQ PO PRN ×2 (18:48→21:19)
[2019-04-14] MEDS: MOM Conc 10 ML UD.LIQ PO PRN ×6 (01:14→19:26)
[2019-04-14] MEDS: *HR* OxyCODONE/APAP 5/325 TABLET PO PRN ×3 (01:14→11:38)
[2019-04-14] MEDS: *HR* FentaNYL (PF) 100 MCG/2 ML VIAL IVP PRN ×2 (04:26→07:16)
[2019-04-14 05:02] LABS: Basophils % 0.4 %; Eosinophils % 0.1 %; Hematocrit 25.5 % (35.3-44.9); Hemoglobin 7.6 g/dL (11.5-15.4); Immature Granulocytes % 0.6 % (0-4); Mean Corpuscular HGB Conc 29.8 g/dL (31.6-35.5); Mean Corpuscular Hemoglobin 23.8 pg (28.0-33.3); Mean Corpuscular Volume 79.7 fL (83.0-100.0); Mean Platelet Volume 11.1 fL (9.4-12.4); Monocytes # 0.9 K/mcL (0.0-1.3); Monocytes % 9.3 %; Platelet Count 151 K/mcL (140-400); Red Cell Distribution Width 17.4 % (11.5-14.5); Segmented Neutrophils % 79.6 %
[2019-04-14 05:27] LABS: BUN/Creatinine Ratio 31 (6-26); Blood Urea Nitrogen 18 mg/dL (8-23); Calcium 8.9 mg/dL (8.6-10.3); Carbon Dioxide 29 mEq/L (23-29); Chloride 107 mEq/L (98-107); Glucose 104 mg/dL (70-105); Osmolality,Calculated 298 (280-300); Potassium 4.3 mEq/L (3.5-5.1); Sodium 143 mEq/L (136-145); eGFR For Non-African Americans > 60 (> 60)
[2019-04-14] MEDS: *HR* Heparin 5,000 UNIT/ML VIAL SQ SCH ×2 (07:26→18:50)
--- NOTE | 2019-04-14 07:35 | Cardiothoracic Progress Note ---
Date of Encounter: 04/14/19 Time of Encounter: 07:33 - Assessment and plan (1) Coronary artery disease Current Visit: Yes Status: Acute The patient has the anemia of chronic disease as well as acute, expected postoperative blood loss anemia. She is asymptomatic and we will try and avoid transfusion if possible. We will transfer her to the floor. Qualifiers: Coronary Disease-Associated Artery/Lesion type: [place] artery [place] vs. transplanted heart: [place] heart Associated angina: with stable angina Qualified Code(s): I25.118 - Atherosclerotic heart disease of [place] coronary artery with other forms of angina pectoris - Subjective Interval history: The patient complains of moderate postoperative pain. She requests that we leave her Simental catheter until tomorrow when we discontinue her chest tubes. Vital Signs, Last 4 Hours Temp Pulse Resp BP Pulse Ox 04/14/19 07:00 78 14 145/53 99 04/14/19 06:00 78 14 137/51 99 04/14/19 05:00 77 16 129/45 100 04/14/19 04:42 14 98 04/14/19 04:17 98.0 F 04/14/19 04:00 74 12 110/42 97 Oxgyen Flow Rate Oxygen Flow Rate (LPM) 2 Clinical Data, last 8 Hours Output, Chest Tube Drainage 18 Amount [Mediastinal #3] Output, Chest Tube Drainage 5 Amount [Mediastinal #3] Output, Chest Tube Drainage 0 Amount [Mediastinal #3] Output, Chest Tube Drainage 0 Amount [Mediastinal #2] Output, Chest Tube Drainage 50 Amount [Mediastinal #2] Output, Chest Tube Drainage 18 Amount [Mediastinal #1] Output, Chest Tube Drainage 11 Amount [Mediastinal #1] Weight 04/12/19 04/13/19 04/14/19 23:59 23:59 23:59 Weight 88.4 kg Lungs are clear to percussion and auscultation. Heart is in a normal sinus rhythm. All incisions are healing well without signs of infection and the sternum is stable. - Labs 04/14/19 04:15 04/14/19 04:15 Lab Results, Last 24 hours 04/13/19 04/13/19 04/13/19 12:24 12:24 12:24 WBC 18.1 H D Hgb 7.9 L Hct 26.1 L Plt Count 162 INR 1.2 APTT 29.8 Sodium 141 Potassium 3.0 L Chloride 108 H Carbon Dioxide 26 BUN 15 Creatinine 0.62 Glucose 91 Calcium 9.7 Magnesium 2.4 04/13/19 04/14/19 04/14/19 16:06 04:15 04:15 WBC 10.0 Hgb 7.6 L Hct 25.5 L Plt Count 151 INR APTT Sodium 143 Potassium 4.3 D 4.3 Chloride 107 Carbon Dioxide 29 BUN 18 Creatinine 0.59 L Glucose 104 Calcium 8.9 Magnesium - VTE Documentation of Mechanical Device: Graduated compression elastic hosiery Consult Discharge Plan - Plan Referrals: Abi Paulson MD [Primary Care Provider] -
[2019-04-14] MEDS: 0.9 % Sodium Chloride 1,000 ML IVC SCH (08:16)
[2019-04-14] MEDS ORDERED: Pantoprazole 40 MG VIAL IVP SCH (09:00)
[2019-04-14] MEDS ORDERED: Aspirin 81 MG TAB.CHEW PO SCH (09:00)
[2019-04-14] MEDS ORDERED: Lisinopril 20 MG TABLET PO SCH (09:00)
[2019-04-14] MEDS ORDERED: hydroCHLOROthiazide 25 MG TABLET PO SCH (09:00)
[2019-04-14] MEDS: Prenatal Vit/FA 1 EACH TABLET PO SCH (11:39)
[2019-04-14] MEDS: Chlorhexidine Rinse 15 ML MOUTHWASH MM SCH ×2 (11:59→19:32)
[2019-04-14] MEDS ORDERED: Ketorolac 15 MG/ML VIAL IVP SCH (12:00)
[2019-04-14] MEDS ORDERED: Naloxone 0.4 MG/ML INJ IVP PRN (13:45)
[2019-04-14] MEDS ORDERED: Acetaminophen 325 MG TABLET PO PRN (13:45)
[2019-04-14] MEDS ORDERED: Nitroglycerin 0.4 MG TAB.SUBL SL PRN (13:45)
[2019-04-14] MEDS ORDERED: *HR* Dextrose 50 % in Water (Syg) 50 ML SYRINGE IVP PRN (13:45)
[2019-04-14] MEDS ORDERED: Dextrose Gel 15 GM/37.5 ML TUBE PO PRN ×2 (13:45)
[2019-04-14] MEDS ORDERED: *HR* Promethazine 25 MG/ML VIAL IVP PRN (13:45)
[2019-04-14] MEDS ORDERED: Methyl Salicylate/Menthol 28 GM TUBE TP PRN (13:45)
[2019-04-14] MEDS ORDERED: D5% in Water 1,000 ML IVC PRN (13:45)
--- NOTE | 2019-04-14 15:34 | Electrocardiograph Report ---
[address] [address] Test Date: 2019-04-10 Pat Name: Isael Reyes Department: 110 Room: [facility] Gender: F Certified Corporate Travel Executive: [facility] : 1950 Requested By: Kirill Kelly Order Number: [id number] Reading MD: Cirilo Campbell Measurements Intervals [place] Rate: 75 P: 54 VA: 132 QRS: 12 QRSD: 86 T: 50 QT: 406 QTc: 434 Interpretive Statements SINUS RHYTHM NONSPECIFIC T-WAVE ABNORMALITY Electronically Signed On 04-14-2019 15:33:16 EDT by Cirilo Campbell
--- NOTE | 2019-04-14 16:04 | Anesthesia Evaluation Post Op ---
Date of Encounter: 04/14/19 Time of Encounter: 14:45 - Vital Signs Vital Signs: Selected Entries 04/14/19 14:00 Pulse Rate 70 Respiratory Rate 20 Blood Pressure 99/61 O2 Sat by Pulse Oximetry 99 Oxygen Flow Rate (LPM) 2 Oxygen Delivery Method Nasal Cannula - Lungs Lungs: Clear Ascult./Percussion - Airway Airway: Non-obstructed - Cardiovascular Regular Rate - Mental Status Mental Status: Alert & Oriented, Answers Appropriately (sitting up in chair) - Pain Pain Scale: 4 Pain Scale used: Numeric (1 - 10) - Nausea Vomiting Nausea Vomiting: Not Present - Hydration Hydration: Tolerates oral liquids, Simental catheter
[2019-04-14] MEDS: Ketorolac 15 MG/ML VIAL IVP SCH ×2 (17:43→23:21)
[2019-04-14] MEDS: Insulin LISPRO 300 UNITS/3 ML VIAL SQ SCH ×3 (17:45→19:32)
--- NOTE | 2019-04-14 17:45 | Electrocardiograph Report ---
[address] [address] Test Date: 2019-04-13 Pat Name: Isael Reyes Department: 109 Room: [facility] Gender: F Case Repairer: : 1950 Requested By: Kirill Kelly Order Number: [id number] Reading MD: Amelie Block Measurements Intervals [place] Rate: 84 P: 51 [place]: 148 QRS: 8 QRSD: 85 T: 58 QT: 405 QTc: 445 Interpretive Statements SINUS RHYTHM NONSPECIFIC T-WAVE ABNORMALITY Electronically Signed On 04-14-2019 17:44:01 EDT by Amelie Block
[2019-04-15] MEDS: *HR* OxyCODONE/APAP 5/325 TABLET PO PRN ×3 (02:48→21:14)
[2019-04-15 03:06] LABS: Basophils % 0.4 %; Eosinophils # 0.1 K/mcL (0.0-0.6); Eosinophils % 1.3 %; Hematocrit 23.1 % (35.3-44.9); Immature Granulocytes % 0.3 % (0-4); Lymphocytes % 13.6 %; Mean Corpuscular HGB Conc 30.3 g/dL (31.6-35.5); Mean Corpuscular Hemoglobin 24.2 pg (28.0-33.3); Mean Corpuscular Volume 79.9 fL (83.0-100.0); Mean Platelet Volume 10.4 fL (9.4-12.4); Monocytes # 0.7 K/mcL (0.0-1.3); Monocytes % 8.6 %; Neutrophils # 5.8 K/mcL (1.6-8.9); Platelet Count 108 K/mcL (140-400); Red Blood Count 2.89 M/mcL (3.82-4.97); Red Cell Distribution Width 18.1 % (11.5-14.5); Segmented Neutrophils % 75.8 %
[2019-04-15 03:26] LABS: BUN/Creatinine Ratio 36 (6-26); Blood Urea Nitrogen 20 mg/dL (8-23); Calcium 8.8 mg/dL (8.6-10.3); Carbon Dioxide 30 mEq/L (23-29); Chloride 105 mEq/L (98-107); Glucose 117 mg/dL (70-105); Osmolality,Calculated 294 (280-300); Potassium 4.9 mEq/L (3.5-5.1); Sodium 140 mEq/L (136-145); eGFR For Non-African Americans > 60 (> 60)
[2019-04-15] MEDS: Ketorolac 15 MG/ML VIAL IVP SCH ×3 (06:16→17:42)
[2019-04-15] MEDS: Insulin LISPRO 300 UNITS/3 ML VIAL SQ SCH ×4 (07:39→21:14)
[2019-04-15] MEDS: *HR* Heparin 5,000 UNIT/ML VIAL SQ SCH ×2 (07:39→17:42)
--- NOTE | 2019-04-15 07:43 | Cardiothoracic Progress Note ---
Date of Encounter: 04/15/19 Time of Encounter: 07:41 - Assessment and plan (1) Coronary artery disease Current Visit: Yes Status: Acute The patient's hemoglobin is 7. She had the anemia of chronic disease and also has acute, expected postoperative blood loss anemia. She is somewhat symptomatic and we will transfuse her 2 units packed red blood cells. We will give 20 of Lasix IV in between. Chest tubes and pacing wires were removed. We will check a stat portable chest x-ray. She is waiting for a floor bed to become available. We will discontinue her Simental. Qualifiers: Coronary Disease-Associated Artery/Lesion type: [place] artery [place] vs. transplanted heart: [place] heart Associated angina: with stable angina Qualified Code(s): I25.118 - Atherosclerotic heart disease of [place] coronary artery with other forms of angina pectoris - Subjective Interval history: The patient is somewhat dyspneic at rest and feels fatigued. Her pain is well controlled. Vital Signs, Last 4 Hours Temp Pulse Resp BP Pulse Ox 04/15/19 07:14 97.7 F 04/15/19 07:00 78 18 115/63 98 04/15/19 06:00 86 14 116/63 99 04/15/19 05:00 82 15 115/52 98 04/15/19 04:21 99.9 F H 04/15/19 04:00 80 14 101/65 98 Oxgyen Flow Rate Oxygen Flow Rate (LPM) 2 Clinical Data, last 8 Hours Output, Chest Tube Drainage 14 Amount [Mediastinal #3] Output, Chest Tube Drainage 16 Amount [Mediastinal #3] Output, Chest Tube Drainage 16 Amount [Mediastinal #3] Output, Chest Tube Drainage 42 Amount [Mediastinal #3] Output, Chest Tube Drainage 42 Amount [Mediastinal #3] Output, Chest Tube Drainage 10 Amount [Mediastinal #2] Output, Chest Tube Drainage 30 Amount [Mediastinal #2] Output, Chest Tube Drainage 30 Amount [Mediastinal #2] Output, Chest Tube Drainage 6 Amount [Mediastinal #2] Output, Chest Tube Drainage 6 Amount [Mediastinal #2] Output, Chest Tube Drainage 0 Amount [Mediastinal #1] Output, Chest Tube Drainage 28 Amount [Mediastinal #1] Output, Chest Tube Drainage 28 Amount [Mediastinal #1] Output, Chest Tube Drainage 24 Amount [Mediastinal #1] Output, Chest Tube Drainage 24 Amount [Mediastinal #1] Weight 05/04/14/19 04/15/19 23:59 23:59 23:59 Weight 90.2 kg Lungs are clear to percussion and auscultation. Heart is in a normal sinus rhythm. All incisions are healing well without signs of infection and the sternum is stable. Chest tube drainage is minimal and there is no air leak. - Labs 04/15/19 02:55 04/15/19 02:55 Lab Results, Last 24 hours 04/15/19 04/15/19 02:55 02:55 WBC 7.7 Hgb 7.0 L Hct 23.1 L Plt Count 108 L Sodium 140 Potassium 4.9 Chloride 105 Carbon Dioxide 30 H BUN 20 Creatinine 0.55 L Glucose 117 H Calcium 8.8 - VTE Documentation of Mechanical Device: Graduated compression elastic hosiery Consult Discharge Plan - Plan Referrals: Abi Paulson MD [Primary Care Provider] -
[2019-04-15] MEDS ORDERED: Furosemide 20 MG/2 ML VIAL IVP ONE (07:46)
[2019-04-15] MEDS: Lisinopril 20 MG TABLET PO SCH (08:06)
[2019-04-15] MEDS: Aspirin 81 MG TAB.CHEW PO SCH (08:07)
[2019-04-15] MEDS: Prenatal Vit/FA 1 EACH TABLET PO SCH (08:07)
[2019-04-15] MEDS: hydroCHLOROthiazide 25 MG TABLET PO SCH (08:07)
[2019-04-15] MEDS: Pantoprazole 40 MG VIAL IVP SCH (08:08)
[2019-04-15] MEDS: Chlorhexidine Rinse 15 ML MOUTHWASH MM SCH ×2 (08:08→21:13)
[2019-04-15] MEDS ORDERED: 0.9 % Sodium Chloride 500 ML ONE ×2 (08:36→13:40)
[2019-04-16] MEDS: Ketorolac 15 MG/ML VIAL IVP SCH ×4 (00:45→17:08)
[2019-04-16] MEDS: *HR* Heparin 5,000 UNIT/ML VIAL SQ SCH ×2 (05:09→17:08)
--- NOTE | 2019-04-16 07:30 | Cardiothoracic Progress Note ---
Date of Encounter: 04/16/19 Time of Encounter: 07:28 - Assessment and plan (1) Coronary artery disease Current Visit: Yes Status: Acute The patient is making good progress. She plans to go to a rehabilitation facility when discharged. Qualifiers: Coronary Disease-Associated Artery/Lesion type: [place] artery [place] vs. transplanted heart: [place] heart Associated angina: with stable angina Qualified Code(s): I25.118 - Atherosclerotic heart disease of [place] coronary artery with other forms of angina pectoris - Subjective Interval history: The patient feels better after yesterday's transfusion of 2 units of packed red blood cells. Vital Signs, Last 4 Hours Temp Pulse Resp BP Pulse Ox 04/16/19 04:24 98.7 F 81 16 113/69 92 Oxgyen Flow Rate Oxygen Flow Rate (LPM) 2 Weight 04/14/19 04/15/19 04/16/19 23:59 23:59 23:59 Weight 90.2 kg Lungs are clear to percussion and auscultation. Heart is in a normal sinus rhythm. All incisions are healing well without signs of infection and the sternum is stable. - Labs 04/15/19 02:55 04/15/19 02:55 - VTE Documentation of Mechanical Device: Graduated compression elastic hosiery Consult Discharge Plan - Plan Referrals: Abi Paulson MD [Primary Care Provider] -
[2019-04-16 08:00] LABS: Basophils % 0.5 %; Eosinophils # 0.2 K/mcL (0.0-0.6); Eosinophils % 3.1 %; Hematocrit 32.7 % (35.3-44.9); Immature Granulocytes % 0.5 % (0-4); Lymphocytes % 13.3 %; Mean Corpuscular HGB Conc 30.6 g/dL (31.6-35.5); Mean Corpuscular Hemoglobin 25.5 pg (28.0-33.3); Mean Corpuscular Volume 83.4 fL (83.0-100.0); Mean Platelet Volume 11.5 fL (9.4-12.4); Monocytes # 0.7 K/mcL (0.0-1.3); Monocytes % 8.9 %; Neutrophils # 5.5 K/mcL (1.6-8.9); Platelet Count 126 K/mcL (140-400); Red Blood Count 3.92 M/mcL (3.82-4.97); Red Cell Distribution Width 19.5 % (11.5-14.5); Segmented Neutrophils % 73.7 %
[2019-04-16 08:27] LABS: BUN/Creatinine Ratio 46 (6-26); Blood Urea Nitrogen 27 mg/dL (8-23); Calcium 9.1 mg/dL (8.6-10.3); Carbon Dioxide 28 mEq/L (23-29); Glucose 90 mg/dL (70-105); eGFR For Non-African Americans > 60 (> 60)
[2019-04-16 08:49] LABS: Chloride 104 mEq/L (98-107); Osmolality,Calculated 297 (280-300); Potassium 4.3 mEq/L (3.5-5.1); Sodium 141 mEq/L (136-145)
[2019-04-16] MEDS: hydroCHLOROthiazide 25 MG TABLET PO SCH (08:54)
[2019-04-16] MEDS: Aspirin 81 MG TAB.CHEW PO SCH (08:54)
[2019-04-16] MEDS: *HR* OxyCODONE/APAP 5/325 TABLET PO PRN ×2 (08:54→22:05)
[2019-04-16] MEDS: Prenatal Vit/FA 1 EACH TABLET PO SCH (08:54)
[2019-04-16] MEDS: Lisinopril 20 MG TABLET PO SCH (08:55)
[2019-04-16] MEDS: Chlorhexidine Rinse 15 ML MOUTHWASH MM SCH ×2 (08:55→22:05)
[2019-04-16] MEDS: Pantoprazole 40 MG VIAL IVP SCH (08:55)
[2019-04-16] MEDS: Insulin LISPRO 300 UNITS/3 ML VIAL SQ SCH ×4 (08:56→22:12)
[2019-04-16] MEDS: Ondansetron 4 MG/2 ML VIAL IVP PRN ×2 (09:42→22:04)
[2019-04-17] MEDS: Ketorolac 15 MG/ML VIAL IVP SCH ×3 (00:20→11:58)
[2019-04-17 00:40] LABS: Basophils % 0.4 %; Eosinophils # 0.2 K/mcL (0.0-0.6); Eosinophils % 3.4 %; Hematocrit 29.4 % (35.3-44.9); Immature Granulocytes % 0.6 % (0-4); Lymphocytes # 0.9 K/mcL (0.6-4.6); Lymphocytes % 12.6 %; Mean Corpuscular HGB Conc 30.6 g/dL (31.6-35.5); Mean Corpuscular Hemoglobin 25.3 pg (28.0-33.3); Mean Corpuscular Volume 82.6 fL (83.0-100.0); Mean Platelet Volume 11.4 fL (9.4-12.4); Monocytes # 0.7 K/mcL (0.0-1.3); Monocytes % 9.8 %; Neutrophils # 5.1 K/mcL (1.6-8.9); Platelet Count 166 K/mcL (140-400); Red Blood Count 3.56 M/mcL (3.82-4.97); Red Cell Distribution Width 19.5 % (11.5-14.5); Segmented Neutrophils % 73.2 %
[2019-04-17 00:58] LABS: BUN/Creatinine Ratio 53 (6-26); Blood Urea Nitrogen 33 mg/dL (8-23); Calcium 8.7 mg/dL (8.6-10.3); Carbon Dioxide 29 mEq/L (23-29); Chloride 104 mEq/L (98-107); Glucose 127 mg/dL (70-105); Osmolality,Calculated 295 (280-300); Potassium 4.5 mEq/L (3.5-5.1); Sodium 138 mEq/L (136-145); eGFR For Non-African Americans > 60 (> 60)
[2019-04-17] MEDS: *HR* OxyCODONE/APAP 5/325 TABLET PO PRN ×4 (04:41→23:50)
[2019-04-17] MEDS: Ondansetron 4 MG/2 ML VIAL IVP PRN (04:42)
[2019-04-17] MEDS: *HR* Heparin 5,000 UNIT/ML VIAL SQ SCH ×2 (04:42→17:25)
--- NOTE | 2019-04-17 07:19 | Cardiothoracic Progress Note ---
Date of Encounter: 04/17/19 Time of Encounter: 07:17 - Assessment and plan (1) Coronary artery disease Current Visit: Yes Status: Acute The patient has decided to go to a rehabilitation facility upon discharge. Qualifiers: Coronary Disease-Associated Artery/Lesion type: [place] artery [place] vs. transplanted heart: [place] heart Associated angina: with stable angina Qualified Code(s): I25.118 - Atherosclerotic heart disease of [place] coronary artery with other forms of angina pectoris - Subjective Interval history: The patient is ambulating and tolerating her diet. Vital Signs, Last 4 Hours Temp Pulse Resp BP Pulse Ox 04/17/19 04:03 98.2 F 73 18 97/65 95 Oxgyen Flow Rate Oxygen Flow Rate (LPM) 1 Weight 04/15/19 04/16/19 04/17/19 23:59 23:59 23:59 Weight 90.2 kg 85.1 kg Lungs are clear to percussion and auscultation. Heart is in a normal sinus rhythm. All incisions are healing well without signs of infection and the sternum is stable. - Labs 04/17/19 00:10 04/17/19 00:10 Lab Results, Last 24 hours 04/16/19 04/16/19 04/17/19 07:20 07:20 00:10 WBC 7.4 7.0 Hgb 10.0 L D 9.0 L Hct 32.7 L 29.4 L Plt Count 126 L 166 Sodium 141 Potassium 4.3 Chloride 104 Carbon Dioxide 28 BUN 27 H Creatinine 0.59 L Glucose 90 Calcium 9.1 04/17/19 00:10 WBC Hgb Hct Plt Count Sodium 138 Potassium 4.5 Chloride 104 Carbon Dioxide 29 BUN 33 H Creatinine 0.62 Glucose 127 H Calcium 8.7 - VTE Documentation of Mechanical Device: Graduated compression elastic hosiery Consult Discharge Plan - Plan Referrals: Abi Paulson MD [Primary Care Provider] - 04/24/19 11:00 am Kirill Kelly MD [Partnered Physician] - 05/14/19 1:30 pm Elana Butler [Partnered Physician] - (Office said they would call the patient at home with follow up appointment)
[2019-04-17] MEDS: Lisinopril 20 MG TABLET PO SCH (08:23)
[2019-04-17] MEDS: Aspirin 81 MG TAB.CHEW PO SCH (08:27)
[2019-04-17] MEDS: hydroCHLOROthiazide 25 MG TABLET PO SCH (08:27)
[2019-04-17] MEDS: Prenatal Vit/FA 1 EACH TABLET PO SCH (08:27)
[2019-04-17] MEDS: Pantoprazole 40 MG VIAL IVP SCH (08:28)
[2019-04-17] MEDS: Chlorhexidine Rinse 15 ML MOUTHWASH MM SCH ×2 (08:28→21:38)
[2019-04-18] MEDS: *HR* Heparin 5,000 UNIT/ML VIAL SQ SCH ×2 (05:52→17:14)
[2019-04-18] MEDS: *HR* OxyCODONE/APAP 5/325 TABLET PO PRN ×3 (05:52→18:25)
--- NOTE | 2019-04-18 08:39 | Cardiothoracic Progress Note ---
Date of Encounter: 04/18/19 Time of Encounter: 08:38 - Assessment and plan (1) Coronary artery disease Current Visit: Yes Status: Acute Hopefully, the patient can be discharged to an extended care facility on Saturday. Qualifiers: Coronary Disease-Associated Artery/Lesion type: [place] artery [place] vs. transplanted heart: [place] heart Associated angina: with stable angina Qualified Code(s): I25.118 - Atherosclerotic heart disease of [place] coronary artery with other forms of angina pectoris - Subjective Interval history: The patient is ambulating and has no complaints. Vital Signs, Last 4 Hours Temp Pulse Resp BP Pulse Ox 04/18/19 07:13 98.0 F 80 18 109/62 93 Oxgyen Flow Rate Oxygen Flow Rate (LPM) 0 Clinical Data, last 8 Hours Output, Urine Amount 300 Output, Urine Amount 0 Weight 04/16/19 04/17/19 04/18/19 23:59 23:59 23:59 Weight 85.1 kg 86 kg Lungs are clear to percussion and auscultation. Heart is in a normal sinus rhythm. All incisions are healing well without signs of infection and the sternum is stable. - Labs 04/17/19 00:10 04/17/19 00:10 - VTE Documentation of Mechanical Device: Graduated compression elastic hosiery Consult Discharge Plan - Plan Referrals: Abi Paulson MD [Primary Care Provider] - 04/24/19 11:00 am Kirill Kelly MD [Partnered Physician] - 05/14/19 1:30 pm Elana Butler [Partnered Physician] - (Office said they would call the patient at home with follow up appointment)
[2019-04-18] MEDS: Prenatal Vit/FA 1 EACH TABLET PO SCH (08:52)
[2019-04-18] MEDS: Aspirin 81 MG TAB.CHEW PO SCH (08:52)
[2019-04-18] MEDS: Lisinopril 20 MG TABLET PO SCH (08:52)
[2019-04-18] MEDS: Pantoprazole 40 MG VIAL IVP SCH (08:52)
[2019-04-18] MEDS: hydroCHLOROthiazide 25 MG TABLET PO SCH (08:52)
[2019-04-18] MEDS: Chlorhexidine Rinse 15 ML MOUTHWASH MM SCH ×2 (08:52→19:56)
[2019-04-18] MEDS: Ondansetron 4 MG/2 ML VIAL IVP PRN ×2 (12:18→18:34)
[2019-04-19] MEDS: Ondansetron 4 MG/2 ML VIAL IVP PRN (03:57)
[2019-04-19] MEDS: *HR* OxyCODONE/APAP 5/325 TABLET PO PRN ×2 (03:57→08:52)
[2019-04-19] MEDS: *HR* Heparin 5,000 UNIT/ML VIAL SQ SCH (05:54)
[2019-04-19] MEDS: Pantoprazole 40 MG VIAL IVP SCH ×2 (08:51→08:52)
[2019-04-19] MEDS: Aspirin 81 MG TAB.CHEW PO SCH (08:52)
[2019-04-19] MEDS: Lisinopril 20 MG TABLET PO SCH (08:52)
[2019-04-19] MEDS: hydroCHLOROthiazide 25 MG TABLET PO SCH (08:52)
[2019-04-19] MEDS: Prenatal Vit/FA 1 EACH TABLET PO SCH (08:52)
[2019-04-19] MEDS: Chlorhexidine Rinse 15 ML MOUTHWASH MM SCH (08:52)
--- NOTE | 2019-04-19 09:31 | Discharge Summary ---
Date of Encounter: 04/19/19 Time of Encounter: 09:25 - Discharge Diagnosis (1) Coronary artery disease Priority: Primary Status: Acute Qualifiers: Coronary Disease-Associated Artery/Lesion type: [place] artery [place] vs. transplanted heart: [place] heart Associated angina: with stable angina Qualified Code(s): I25.118 - Atherosclerotic heart disease of [place] coronary artery with other forms of angina pectoris - Hospital Course Hospital course: Ms. Reyes is a 68 year old female The patient is a 68-year-old female who has a history of gastric bypass and hypertension. She presented with chest pain. Cardiac catheterization revealed left main disease with triple-vessel disease and she was referred for surgery. On 04/13/2019, I took her to the operating room for coronary bypass grafting 3, utilizing the left internal mammary artery. The patient did have the anemia of chronic disease and had a preoperative hemoglobin of 8. She also had the usual, expected acute postoperative blood loss anemia and did receive 2 units of packed red blood cells. On April 14 she was transferred to the floor. On April 15 her chest tubes and pacing wires were removed. The patient otherwise did well and on April 19 she was discharged to a rehabilitation facility for further care. Discharge medications are on the med rec and include narcotics for pain. I did check the [place] automated Rx reporting system. She was postoperative and was given a one-week supply. Appropriate precautions were given. She was to return to her previous and regular diet. She was to walk as much as possible, but to avoid heavy lifting for a total of 3 months after surgery. She was to avoid driving for 1 month. She was to follow up and see me in the office in 4 weeks as directed. She was to follow up with her balcony worker and primary care doctor as directed. She was to call sooner for any difficulties. - Time Spent with Patient Total time spent providing and/or coordinating discharge services: - Discharge Medications Prescriptions: New Atorvastatin [Lipitor] 80 mg PO HS #30 tablet OxyCODONE/APAP 5/325 [Percocet 5/325 MG] 1 each PO Q4HR PRN 7 Days #10 tablet PRN Reason: Severe Pain Continued Lisinopril [Zestril] 40 mg PO DAILY Carvedilol 3.125 mg PO BID hydroCHLOROthiazide [Hydrochlorothiazide] 25 mg PO DAILY Ferrous Sulfate [Iron] 325 mg PO BID Pnv No.122/Iron/Folic Acid [ Multi Tablet] 1 each PO DAILY Zoledronic Acid (Reclast) [Reclast Premix 5 MG/100 ML] 5 mg IV [id number] Acetaminophen [Tylenol] 1,000 mg PO Q6HR Cholecalciferol (Vitamin D3) [Vitamin D3] 50,000 unit PO TH Diclofenac Sodium [Voltaren] 1 appl TP QID PRN PRN Reason: Pain Aspirin [Lo-Dose Aspirin EC] 81 mg PO DAILY Calcium Carbonate/Vitamin D3 [Calcium 500-Vit D3 200 Caplet] 1 each PO DAILY Escitalopram [Lexapro] 20 mg PO DAILY Home Medications: Carvedilol 3.125 mg PO BID 10/02/17 [History] Lisinopril [Zestril] 40 mg PO DAILY 10/02/17 [History] Acetaminophen [Tylenol] 1,000 mg PO Q6HR 04/10/19 [History] Aspirin [Lo-Dose Aspirin EC] 81 mg PO DAILY 04/10/19 [History] Calcium Carbonate/Vitamin D3 [Calcium 500-Vit D3 200 Caplet] 1 each PO DAILY 04/10/19 [History] Cholecalciferol (Vitamin D3) [Vitamin D3] 50,000 unit PO TH 04/10/19 [History] Diclofenac Sodium [Voltaren] 1 appl TP QID PRN 04/10/19 [History] Escitalopram [Lexapro] 20 mg PO DAILY 04/10/19 [History] Ferrous Sulfate [Iron] 325 mg PO BID 04/10/19 [History] Pnv No.122/Iron/Folic Acid [ Multi Tablet] 1 each PO DAILY 04/10/19 [History] Zoledronic Acid (Reclast) [Reclast Premix 5 MG/100 ML] 5 mg IV [id number] 04/10/19 [History] hydroCHLOROthiazide [Hydrochlorothiazide] 25 mg PO DAILY 04/10/19 [History] Atorvastatin [Lipitor] 80 mg PO HS #30 tablet 04/19/19 [Rx] OxyCODONE/APAP 5/325 [Percocet 5/325 MG] 1 each PO Q4HR PRN 7 Days #10 tablet 04/19/19 [Rx] Allergies/Adverse Reactions: Allergy/AdvReac Type Severity Reaction Status Date / Time meperidine [From Demerol] AdvReac Nausea Verified 10/02/17 09:24 Date of admission: 04/13/19 13:32 Primary care physician: Abi Paulson MD Consults: 04/13/19 11:27 Consult to Cardiac Rehabilitation-Phase1 [CONS] Routine Comment: Reason for Consult: Post open heart Call Completed: Yes Consult to Solution Advisor [CONS] Routine Reason for SW Consult: open heart 04/13/19 13:32 Consult for Pharmacy Education [CONS] Routine Reason for Consult: open heart Call Completed: Yes 04/14/19 13:45 Consult for Pharmacy Education [CONS] Routine Reason for Consult: Post-Op Heart Call Completed: Yes Consult to Occupational Therapy [CONS] Routine Comment: Evaluate, develop and implement POC Reason for Consult: Post-Op Heart Does patient have active BEDREST order?: No Is patient medically & hemodynamically stable?: Yes Consult to Physical Therapy [CONS] Routine Comment: Evaluate, develop and implement POC Reason for Consult: Post open heart Does patient have active BEDREST order?: No Is patient medically & hemodynamically stable?: Yes Procedure(s) Performed: 04/13/2019. Coronary artery bypass grafting 3, utilizing the left internal mammary artery. Discharging clinician: Kirill Kelly Anticipated date of discharge: 04/19/19 Physical Examination Vital Signs, Last 4 Hours Temp Pulse Resp BP Pulse Ox 04/19/19 07:34 97.9 F 77 18 117/83 93 - Patient Status Disposition: Transfer Inpatient Rehab Fac Functional capacity at discharge: independent ambulation Overall status at discharge: patient is progressing back to baseline - Discharge Instructions Follow Up With: Abi Paulson MD [Primary Care Provider] - 04/24/19 11:00 am Kirill Kelly MD [Partnered Physician] - 05/14/19 1:30 pm Elana Butler [Partnered Physician] - (Office said they would call the patient at home with follow up appointment) Open Heart Registry Aspirin Cont/Prescribed at DC: Yes Beta Trevon Cont/Prescribed at DC: Yes Statin Cont/Prescribed at DC: Yes RANDY/ARB Cont/Prescribed at DC: Yes - VTE Documentation of Mechanical Device: Graduated compression elastic hosiery
--- NOTE | 2019-04-19 09:39 | Physician Discharge Referral ---
ExtendedCare Referral Info Provider in Charge after Transfer: PCP Institutional Level of Care: Intermediate - Diagnosis (1) Coronary artery disease Priority: Primary Status: Acute - Transfer Medications Prescriptions: Atorvastatin [Lipitor] 80 mg PO HS #30 tablet OxyCODONE/APAP 5/325 [Percocet 5/325 MG] 1 each PO Q4HR PRN 7 Days #10 tablet PRN Reason: Severe Pain Home Medications: Carvedilol 3.125 mg PO BID 10/02/17 [History] Lisinopril [Zestril] 40 mg PO DAILY 10/02/17 [History] Acetaminophen [Tylenol] 1,000 mg PO Q6HR 04/10/19 [History] Aspirin [Lo-Dose Aspirin EC] 81 mg PO DAILY 04/10/19 [History] Calcium Carbonate/Vitamin D3 [Calcium 500-Vit D3 200 Caplet] 1 each PO DAILY 04/10/19 [History] Cholecalciferol (Vitamin D3) [Vitamin D3] 50,000 unit PO TH 04/10/19 [History] Diclofenac Sodium [Voltaren] 1 appl TP QID PRN 04/10/19 [History] Escitalopram [Lexapro] 20 mg PO DAILY 04/10/19 [History] Ferrous Sulfate [Iron] 325 mg PO BID 04/10/19 [History] Pnv No.122/Iron/Folic Acid [ Multi Tablet] 1 each PO DAILY 04/10/19 [History] Zoledronic Acid (Reclast) [Reclast Premix 5 MG/100 ML] 5 mg IV [id number] 04/10/19 [History] hydroCHLOROthiazide [Hydrochlorothiazide] 25 mg PO DAILY 04/10/19 [History] Atorvastatin [Lipitor] 80 mg PO HS #30 tablet 04/19/19 [Rx] OxyCODONE/APAP 5/325 [Percocet 5/325 MG] 1 each PO Q4HR PRN 7 Days #10 tablet 04/19/19 [Rx] Allergies/Adverse Reactions: Allergy/AdvReac Type Severity Reaction Status Date / Time meperidine [From Demerol] AdvReac Nausea Verified 10/02/17 09:24 - Respiratory Orders Smoking Cessation: Smoking cessation has been advised. For more information, call the [place] Tobacco Quit Line at 0-567-UASN-NOW. - Ancillary Orders May use pressure relief devices daily prn, May go on ANDREW w/family/respon democrat w/meds at nurse discretion PRN, May have alcoholic beverages, May consult with Dentist, Industrial Twisting Machine Operator, Leather Finisher PRN - Advance Directives Code Status: Full Code - Mobility Orders Chair, Ambulate - Rehabiliation Orders Rehab Potential: Good Rehab Orders: Sternal Precautions, ROM Exercises, Evaluation for Physical Therapy, Evaluation for Occupational Therapy - Treatments Skin tear care topically daily PRN per policy, May check for fecal impaction rectally daily PRN, Fleet enema rectally every other day PRN cleansing purposes - Diet Orders Cardiac CERTIFICATION: I certify that the transfer of the above named patient to an Extended Care Facility is necessary for the continuing treatment of the diagnosis listed. The above information is true and accurate reflection of patient's current condition. Confidential - Redisclosure prohibited without a patient's written consent.
[2019-04-19 11:30] VITALS: BP 106/66
== END 2019-04-19 15:32 | DRG 234 ==
LOC: 2NNU 08:34 → INVDIALAB 08:34 → 2NNU 11:34 → ICNU 04-13 08:06 → 2NNU 04-15 18:03
PROVIDERS: ADMIT Internal Medicine Cardiovascular Disease; ATTEND Thoracic Surgery (Cardiothoracic Vascular Surgery)

== ENCOUNTER 2019-05-21 10:41 | Inpatient (IN) ==
--- NOTE | 2019-05-21 14:12 | Internal Med History&Physical ---
Date of Encounter: 05/21/19 Time of Encounter: 13:52 Internal Medicine - H&P: HPI Chief complaint: Chest pain Admitted From: Emergency Dept History of present illness: Isael Reyes is a 68 F w hx CAD s/p CABG 04/2019, HTN, HLD, asthma, hypothy roidism, GERD, fibro, anx/dep, who p/w chest pain. Pain began early this AM in the middle of her chest, radiating to b/l shoulders and up into neck/jaw, continuous, not exertional and not relieved with ASA or tylenol. It is associated with sensation of SOB and patient says she has worsening of pain with deep inspiration. Denies N/V or diaphoresis. Denies fever, cough, back pain, abd pain, diarrhea. Of note, she had [place] and CABG performed here in april 2019, discharged to SNF after 1 week and just went home about 1 week ago. Says her activity level has been improving, able to walk 30 minutes continuously, and that this pain and SOB is definitely concerning as she hasn't felt this since just before her CABG. In the ED, pt vitals remarkable for HR 103. Labs notable for Hb 11, Cr 0.8, BNP 34, trop wnl. CXR unremarkable. ECG reported as TWI in inferior and lateral leads. Pain partially relieved w nitro paste. Patient started on heparin gtt and transferred to [facility]. Past medical, surgical, social, and family histories reviewed and updated as below. Past Med Surg Social Fam HX - Past Medical History Medical history: arthritis, asthma, coronary artery disease, fibromyalgia, GERD, hyperlipidemia, hypertension, thyroid disease, other Additional medical history: Thyroid cysts Psychiatric history: depression - Past Surgical History Surgical History: appendectomy, cholecystectomy, coronary bypass (CABG), hip replacement, knee replacement, other Additional surgical history: Tubal - Social History Smoking Status: Former smoker Smokeless Tobacco Status: No Alcohol use: none Drug use: none - Family History Mother Hx Family Cancer: Yes Hx Family Neuromuscular Disorders: Yes (parkinsons) Father Hx Family Cardiac Disorders: Yes (heart dx) Hx Family Neurologic Disorders: Yes (Dementia) Internal Medicine - H&P: Meds Carvedilol 3.125 mg PO BID 10/02/17 [History] Aspirin [Lo-Dose Aspirin EC] 81 mg PO DAILY 04/10/19 [History] Calcium Carbonate/Vitamin D3 [Calcium 500-Vit D3 200 Caplet] 1 each PO DAILY 04/10/19 [History] Diclofenac Sodium [Voltaren] 1 appl TP QID PRN 04/10/19 [History] Escitalopram [Lexapro] 20 mg PO DAILY 04/10/19 [History] Pnv No.122/Iron/Folic Acid [ Multi Tablet] 1 each PO DAILY 04/10/19 [History] Zoledronic Acid (Reclast) [Reclast Premix 5 MG/100 ML] 5 mg IV [id number] 04/10/19 [History] Acetaminophen [Tylenol] 1,000 mg PO Q6HR PRN #0 04/25/19 [Rx] Ascorbic Acid [Vitamin C] 500 mg PO DAILY@0630 #30 tablet 04/25/19 [Rx] Cyanocobalamin (B-12) [Vitamin B12] 1,000 mcg PO DAILY #30 tablet 04/25/19 [Rx] Ferrous Sulfate 325 mg PO DAILY@0630 #30 tablet 04/25/19 [Rx] Lisinopril [Zestril] 20 mg PO DAILY tablet 04/25/19 [Rx] hydroCHLOROthiazide [Hydrochlorothiazide] 12.5 mg PO DAILY tablet 04/25/19 [Rx] Allergy/AdvReac Type Severity Reaction Status Date / Time acetaminophen [From Percocet] AdvReac Nausea Verified 05/21/19 08:33 meperidine [From Demerol] AdvReac Nausea Verified 10/02/17 09:24 oxycodone [From Percocet] AdvReac Nausea Verified 05/21/19 08:33 All Systems PM: A 10-system review of systems was performed and is negative for pertinent findings except as documented above in the HPI. - Constitutional Vitals: Temp Pulse Resp BP Pulse Ox 99.6 F 82 33 111/66 100 05/21/19 12:07 05/21/19 12:07 05/21/19 12:07 05/21/19 12:07 05/21/19 12:07 Exam: General: NAD, good eye contact, uncomfortable appearing, seems breathless and taking shallow breaths Head: Atraumatic, normocephalic. Face symmetric Eyes: EOMI, sclerae anicteric ENT: Mucous membranes moist. Normal oral mucosa and dentition. Trachea midline. Thoracic: No visible chest wall deformities. Normal breath sounds b/l, does have coarse bibasilar sounds Cardio: Normal S1 and S2, regular rhythm, tachycardic Abdomen: Soft, nontender, nondistended. Extremities: Warm, well perfused. DP pulses 2+ b/l. No clubbing, cyanosis. Mild nonpitting edema b/l legs Skin: Intact. No rashes, bruises, or ulcers Neuro: Awake, fully oriented. Good memory, concentration, attention. Speech fluent. CN II-XII grossly intact. Strength 5/5 in b/l UE and LE - Summary of Assessment and Plan Summary of Assessment and Plan: Isael Reyes is a 68 F w hx CAD s/p CABG 04/2019, HTN, HLD, COPD, hypothyroidism, GERD, fibro, anx/dep, who p/w atypical chest pain, ECG w TWI in inferolateral leads, concerning for NSTEMI. NSTEMI: CABG 1 month ago, now unstable angina partially relieved w nitro paste, ECG w TWIs inferolateral leads, initial trop negative. DDx does include PE. - tele - trend trops - check D-dimer, expect it likely will be elevated and will reflex to CTPE if so - repeat ECG - empiric hep gtt - home coreg 3.125 bid - holding home lisinopril pending cardio consult in case opt for [facility] - Cardio consult CAD s/p CABG, HLD: home ASA, statin HTN: holding home hctz 12.5, lisinopril 20 Anx/dep: home lexapro Obesity: BMI 32 Noted in history but not on meds: Asthma, hypothyroidism, GERD, Fibromyalgia PPx: hep gtt FEN: cardiac, no MIVF Lines: PIV Consults: Cardio Code: Full Dispo: patient requires inpatient eval and management at this time. Anticipate 2-3 days. Will be homegoing
[2019-05-21] MEDS ORDERED: Ondansetron 4 MG/2 ML VIAL IVP PRN (14:13)
[2019-05-21] MEDS ORDERED: Acetaminophen 325 MG TABLET PO PRN (14:13)
[2019-05-21] MEDS ORDERED: *HR* Heparin 5,000 UNIT/ML VIAL IVP ONE (14:20)
[2019-05-21] MEDS ORDERED: *HR* Heparin 5,000 UNIT/ML VIAL IVP PRN ×2 (14:20)
[2019-05-21] MEDS ORDERED: Heparin 25,000 UNIT/250 ML D5W 25,000 UNIT/250 ML IV.SOLN IVC SCH (14:30)
[2019-05-21] MEDS ORDERED: *HR* Morphine 2 MG/ML SYRINGE IVP ONE (15:27)
--- NOTE | 2019-05-21 15:36 | Cardiology Consult Note ---
Date of Encounter: 05/21/19 Time of Encounter: 15:30 Assessment and Plan (1) Chest pain Current Visit: No Status: Acute Per cardiology: -Admitted with chest pain. States somewhat similar to previous angina. However does have pleuritic component. Reports symptom improvement currently. -Patient underwent recent CABG 04/2019. -[facility] 04/2019 with 70% LM, 70% prox LAD, 25% mid LAD, 25% prox circ, 70% prox RCA, 80% mid RCA. -CABG 04/2019 with [place] to LAD, SVG to OM, SVG to PDA. -ECG with non-specific ST and T wave abnormalities noted. -TTE 04/2019 with LVEF 65%, no SWMA. -Will repeat TTE. -Will give one dose of morphine. -Continue to trend troponin. -Continue heparin, asa, BB. Will resume home statin. Qualifiers: Chest pain type: unspecified Qualified Code(s): R07.9 - Chest pain, unspeci fied (2) CAD (coronary artery disease) Current Visit: No Status: Chronic Per cardiology: -Known CAD s/p recent CABG. -See plan as above. Qualifiers: Coronary Disease-Associated Artery/Lesion type: [place] artery [place] vs. transplanted heart: [place] heart Associated angina: with unspecified angina Qualified Code(s): I25.119 - Atherosclerotic heart disease of [place] coronary artery with unspecified angina pectoris Discussion w patient/family: The assessment and plan as outlined above was discussed with the patient who expressed understanding and agreement. All questions were answered. Thank you for involving us in the care of your patient. Please call with any questions. Discussed and reviewed with . History of Present Illness Consult date: 05/21/19 Requesting physician: Kirit Ivy Consult reason: chest pain Chief complaint: chest pain History of present illness: Ms. Reyes is a 68 year old female with a relevant past medical history of CAD s/p recent CABG 04/2019, depresson, obesity s/p gastric bypass, anemia, HLD, HTN, hyperthyroidism, astham, barrets esophagus, GERD, duodenal ulcer, fibromyalgia, who presented to [facility] with complaints of chest pain. Patient states she woke up with chest pain across her chest and intro her neck. Patient also reports increased shortness of breath. States chest pain is worse with deep inspiration. States neck pain is somewhat similar to previous angina. Past Med Surg Social Fam HX - Past Medical History Attestation: Yes The following information was validated with the patient. Source: patient, old records reviewed Medical history: arthritis, asthma, coronary artery disease, fibromyalgia, GERD, hyperlipidemia, hypertension, thyroid disease, other Additional medical history: Thyroid cysts Psychiatric history: depression - Past Surgical History Surgical History: appendectomy, cholecystectomy, coronary bypass (CABG), hip replacement, knee replacement, other Additional surgical history: Tubal - Social History Smoking Status: Former smoker Smokeless Tobacco Status: No Alcohol use: none Drug use: none - Family History Mother Hx Family Cancer: Yes Hx Family Neuromuscular Disorders: Yes (parkinsons) Father Hx Family Cardiac Disorders: Yes (heart dx) Hx Family Neurologic Disorders: Yes (Dementia) Medications and Allergies Carvedilol 3.125 mg PO BID 10/02/17 [History] Aspirin [Lo-Dose Aspirin EC] 81 mg PO DAILY 04/10/19 [History] Calcium Carbonate/Vitamin D3 [Calcium 500-Vit D3 200 Caplet] 1 each PO DAILY 04/10/19 [History] Diclofenac Sodium [Voltaren] 1 appl TP QID PRN 04/10/19 [History] Escitalopram [Lexapro] 20 mg PO DAILY 04/10/19 [History] Pnv No.122/Iron/Folic Acid [ Multi Tablet] 1 each PO DAILY 04/10/19 [History] Zoledronic Acid (Reclast) [Reclast Premix 5 MG/100 ML] 5 mg IV [id number] 04/10/19 [History] Acetaminophen [Tylenol] 1,000 mg PO Q6HR PRN #0 04/25/19 [Rx] Ascorbic Acid [Vitamin C] 500 mg PO DAILY@0630 #30 tablet 04/25/19 [Rx] Cyanocobalamin (B-12) [Vitamin B12] 1,000 mcg PO DAILY #30 tablet 04/25/19 [Rx] Ferrous Sulfate 325 mg PO DAILY@0630 #30 tablet 04/25/19 [Rx] Lisinopril [Zestril] 20 mg PO DAILY tablet 04/25/19 [Rx] hydroCHLOROthiazide [Hydrochlorothiazide] 12.5 mg PO DAILY tablet 04/25/19 [Rx] Allergy/AdvReac Type Severity Reaction Status Date / Time acetaminophen [From Percocet] AdvReac Nausea Verified 05/21/19 08:33 meperidine [From Demerol] AdvReac Nausea Verified 10/02/17 09:24 oxycodone [From Percocet] AdvReac Nausea Verified 05/21/19 08:33 All Systems Review: The remainder of the systems were reviewed and are negative - Cardiovascular Cardiovascular: as per HPI, chest pain at rest, dyspnea at rest, radiating jaw, neck or arm pain Physical Examination Vital Signs, Last 4 Hours Temp Pulse Resp BP Pulse Ox 05/21/19 12:07 99.6 F 82 33 111/66 100 General: Conversant, Other (Conversational dyspnea noted. ) HEENT: Atraumatic, Normocephaly, Mucus Membranes Moist Neck: No JVD, Normal carotid pulses Cardiac: Reg Rate and Rhythm, Normal S1 and S2, No Murmur Lungs: Normal Breath Sounds, No Wheeze, Rales, Rhonchi Neuro: Alert and responsive, No focal deficits noted Abdomen: Soft, Non-Tender Skin: No rashes noted on visualized skin Musculoskeletal: No Chest Wall Tenderness Extremities: No Clubbing, No Cyanosis, No Edema, Normal Pulses Results Active Medications Acetaminophen (Tylenol) 650 mg PO Q6HR PRN PRN Reason: Mild Pain/Fever Stop: 11/20/19 14:14 Aspirin (Aspirin Ec) 81 mg PO DAILY [facility] Stop: 11/21/19 09:01 Carvedilol (Coreg) 3.125 mg PO BIDWM [facility] Stop: 11/20/19 17:01 Escitalopram Oxalate (Lexapro) 20 mg PO DAILY [facility] Stop: 11/21/19 09:01 Heparin Sodium (Porcine) (Heparin) 2,000 unit IVP Q6H PRN PRN Reason: SEE COMMENTS Stop: 11/20/19 14:21 Heparin Sodium (Porcine) (Heparin) 4,000 unit IVP Q6HR PRN PRN Reason: SEE COMMENTS Stop: 11/20/19 14:21 Heparin Sodium/Dextrose (Heparin 25,000 Unit/250 Ml D5w) 25,000 unit in 250 mls @ 10.563 mls/hr IVC .[id number] [facility]; Protocol Stop: 11/20/19 14:31 Ondansetron HCl (Zofran) 4 mg IVP Q8HR PRN PRN Reason: Nausea And Vomiting Stop: 11/20/19 14:14 Laboratory Tests 05/21/19 05/21/19 08:40 08:40 Hgb 10.9 L Creatinine 0.80 Troponin I < 0.03 - Imaging and Cardiology Chest Xray: report reviewed Echo: pending, report reviewed Cardiac cath: report reviewed - EKG Interpretation EKG results cardiology: personally reviewed (ECG with SR, non-specific ST and T wave abnormalities noted.) Consult Discharge Plan - Plan Referrals: Abi Paulson MD [Primary Care Provider] -
[2019-05-21 17:22] LABS: INR 1.1; Prothrombin Time 12.2 Seconds (9.4-12.1)
[2019-05-21 17:34] LABS: Magnesium 1.8 mg/dL (1.6-2.6)
[2019-05-21 17:35] LABS: Troponin I < 0.03 ng/mL (< 0.04)
[2019-05-21] MEDS ORDERED: Isovue-370 500 ML BOTTLE IVP ONE (17:53)
--- NOTE | 2019-05-21 20:15 | Event Note ---
Date of Encounter: 05/21/19 Time of Encounter: 20:13 I received a call from [place] radiology that patient's CTA demonstrated moderate pericardial effusion, pericardial fat stranding that could indicate pericarditis, no signs of pulmonary embolism. I did check on the patient who appeared comfortable, sitting in the chair, saturating and ventilating appropriately on 2 L nasal cannula. She did complain of continued shortness of breath and mild chest pain but was otherwise comfortable. Heart rate and blood pressure were within normal limits. I did call Dr. Campbell on-call for cardiology who recommended discontinuing the heparin drip and awaiting the results of the pending echocardiogram.
[2019-05-21] MEDS ORDERED: Ibuprofen 400 MG TABLET PO ONE (20:38)
--- NOTE | 2019-05-21 22:17 | Event Note ---
Date of Encounter: 05/21/19 Time of Encounter: 22:16 Echocardiogram resulted confirming moderate to large pericardial effusion with echocardiographic signs of impending tamponade. Patient's vitals remained within normal limits, no change in clinical condition. Echocardiogram findings discussed with cardiology who recommended discussing with CT surgery. Dr. Zamudio with CT surgery called who recommended nothing by mouth at midnight and continue to monitor.
[2019-05-22 01:55] LABS: Hemoglobin 9.7 g/dL (11.5-15.4); Mean Corpuscular HGB Conc 31.3 g/dL (31.6-35.5); Mean Corpuscular Hemoglobin 26.1 pg (28.0-33.3); Mean Corpuscular Volume 83.3 fL (83.0-100.0); Mean Platelet Volume 9.6 fL (9.4-12.4); Platelet Count 179 K/mcL (140-400); Red Blood Count 3.72 M/mcL (3.82-4.97); Red Cell Distribution Width 19.9 % (11.5-14.5); White Blood Count 6.2 K/mcL (4.3-11.1)
[2019-05-22 02:14] LABS: BUN/Creatinine Ratio 28 (6-26); Blood Urea Nitrogen 19 mg/dL (8-23); Calcium 8.7 mg/dL (8.6-10.3); Carbon Dioxide 23 mEq/L (23-29); Chloride 105 mEq/L (98-107); Glucose 117 mg/dL (70-105); Osmolality,Calculated 287 (280-300); Potassium 3.6 mEq/L (3.5-5.1); Sodium 137 mEq/L (136-145); eGFR For African Americans > 60 (> 60); eGFR For Non-African Americans > 60 (> 60)
--- NOTE | 2019-05-22 07:39 | Cardiothoracic Consult Note ---
Date of Encounter: 05/22/19 Time of Encounter: 07:34 Assessment and Plan (1) Pericardial effusion Current Visit: Yes Status: Acute Patient is a 68-year-old hypertensive lady with hypercholesterolemia and known CAD underwent CABG 3 on 04/13/2018. She did well postoperatively and was discharged to an extended care facility as a bridge to home. She has been discharged from the extended care facility and has been at home for approximately 2 weeks. She did well during this time; however, yesterday, she developed profound shortness of breath and dyspnea on exertion. She was evaluated at [facility] emergency department and found to have a pericardial effusion on his chest CTA and transthoracic echocardiogram. The effusion is moderate to large in size and is primarily loculated near the posterior wall of the LV. There was also evidence of early tamponade physiology with both left atrial and right atrial chamber collapse. She has been recommended for pericardial window and drainage of the pericardial effusion. Review of the chest CT and echocardiogram showed that there is minimal fluid between the sternum and the right ventricular wall. I believe that the effusion should be approached via a thoracoscopy or thoracotomy. I have asked Dr. Jet Ferrara to evaluate the chest CT to determine whether this would be feasible with a thoracoscopy. The patient will undergo her procedure this morning. The assessment and plan as outlined above was discussed with the patient and/or family members who expressed understanding and agreement. All questions were answered. - History of Present Illness Consult date: 05/21/19 Requesting physician: Benton Santos Consult reason: Postoperative pericardial effusion Chief complaint: Shortness of breath History of present illness: Ms. Reyes is a 68 year old hypertensive lady with hypercholesterolemia and known CAD. She underwent CABG 3 (GILLILAND to LAD, SVG to OM1, SVG to PDA) by Dr. Kirill Kelly on 04/13/2019. Her postoperative course was uncomplicated and she was discharged to an extended care facility as a bridge to home on 04/19/2019. She completed her rehabilitation at the extended care facility and has been home since 04/25/2019. Yesterday she had increased shortness of breath and shortness of breath, which she had not experienced postoperatively. She was evaluated at [facility] emergency department. During her evaluation she underwent a chest CTA which revealed a moderate pericardial effusion. Subsequent transthoracic echocardiogram revealed a moderate to large circumferential perica rdial effusion with significant loculation along the left ventricular posterior wall. Early signs of tamponade were noted with LA and RA chamber collapse. She has been recommended for pericardial window and drainage of the pericardial fluid. Past Med Surg Social Fam HX - Past Medical History Medical history: arthritis, asthma, coronary artery disease, fibromyalgia, GERD, hyperlipidemia, hypertension, thyroid disease, other Additional medical history: Thyroid cysts Psychiatric history: depression - Past Surgical History Surgical History: appendectomy, cholecystectomy, coronary bypass (CABG), knee replacement (Right total knee replacement), other (Tubal ligation, right hip ORIF, right knee arthroscopy) Additional surgical history: Tubal - Social History Smoking Status: Former smoker Smokeless Tobacco Status: No Alcohol use: none Drug use: none Occupational status: retired Current living situation: Home - Independent Activity Level: Independent ambulation Recent Out of Country Travel Within the Last 8 Weeks: No Exposure or Possible Exposure to Illness During Travel: No - Family History Mother Hx Family Cancer: Yes Hx Family Neuromuscular Disorders: Yes (parkinsons) Father Hx Family Cardiac Disorders: Yes (heart dx) Hx Family Neurologic Disorders: Yes (Dementia) Medications and Allergies Carvedilol 3.125 mg PO BID 10/02/17 [History] Aspirin [Lo-Dose Aspirin EC] 81 mg PO DAILY 04/10/19 [History] Calcium Carbonate/Vitamin D3 [Calcium 500-Vit D3 200 Caplet] 1 each PO DAILY 04/10/19 [History] Diclofenac Sodium [Voltaren] 1 appl TP QID PRN 04/10/19 [History] Escitalopram [Lexapro] 20 mg PO DAILY 04/10/19 [History] Pnv No.122/Iron/Folic Acid [ Multi Tablet] 1 each PO DAILY 04/10/19 [History] Zoledronic Acid (Reclast) [Reclast Premix 5 MG/100 ML] 5 mg IV [id number] [History] Acetaminophen [Tylenol] 1,000 mg PO Q6HR PRN #0 04/25/19 [Rx] Ascorbic Acid [Vitamin C] 500 mg PO DAILY@0630 #30 tablet 04/25/19 [Rx] Cyanocobalamin (B-12) [Vitamin B12] 1,000 mcg PO DAILY #30 tablet 04/25/19 [Rx] Ferrous Sulfate 325 mg PO DAILY@0630 #30 tablet 04/25/19 [Rx] Lisinopril [Zestril] 20 mg PO DAILY tablet 04/25/19 [Rx] hydroCHLOROthiazide [Hydrochlorothiazide] 12.5 mg PO DAILY tablet 04/25/19 [Rx] Allergy/AdvReac Type Severity Reaction Status Date / Time acetaminophen [From Percocet] AdvReac Nausea Verified 05/21/19 08:33 meperidine [From Demerol] AdvReac Nausea Verified 10/02/17 09:24 oxycodone [From Percocet] AdvReac Nausea Verified 05/21/19 08:33 All Systems Review: The remainder of the systems were reviewed and are negative Physical Examination Vital Signs, Last 4 Hours Temp Pulse Resp BP Pulse Ox 05/22/19 04:29 98.2 F 78 18 101/77 99 General: Conversant, No Apparent Distress Neck: No JVD, Normal carotid pulses Cardiac: Reg Rate and Rhythm, Normal S1 and S2, No Murmur Lungs: Normal Breath Sounds, No Wheeze, Rales, Rhonchi Neuro: Alert and responsive, No focal deficits noted Vascular: Normal capillary refill Abdomen: Soft, Non-tender Skin: No rashes noted on visualized skin Musculoskeletal: No Chest Wall Tenderness Extremities: No Clubbing, No Cyanosis, No Edema Results 05/22/19 01:15 05/22/19 01:15 Lab Results, Last 24 hours 05/21/19 05/21/19 05/21/19 16:57 16:57 16:57 WBC Hgb Hct Plt Count INR 1.1 D-Dimer Sodium Potassium Chloride Carbon Dioxide BUN Creatinine Glucose Calcium Magnesium 1.8 Troponin I < 0.03 B-Natriuretic Peptide TSH 0.218 L 05/21/19 05/22/19 05/22/19 16:57 01:15 01:15 WBC 6.2 Hgb 9.7 L Hct 31.0 L Plt Count 179 INR D-Dimer 1038 H Sodium 137 Potassium 3.6 Chloride 105 Carbon Dioxide 23 BUN 19 Creatinine 0.69 Glucose 117 H Calcium 8.7 Magnesium 2.0 Troponin I B-Natriuretic Peptide TSH 05/22/19 01:15 WBC Hgb Hct Plt Count INR D-Dimer Sodium Potassium Chloride Carbon Dioxide BUN Creatinine Glucose Calcium Magnesium Troponin I B-Natriuretic Peptide 56 TSH - Imaging Chest Xray: image reviewed (Cardiomegaly (new since her immediate postoperative chest x-ray). No active pulmonary disease.) Consult Discharge Plan - Plan Referrals: Abi Paulson MD [Primary Care Provider] -
--- NOTE | 2019-05-22 08:06 | Internal Med Progress Note ---
Hospitalist Progress Note - Encounter Date of Encounter: 05/22/19 Time of Encounter: 08:06 - Subjective Interval History: Eventful night. TTE and CT showed pericardial effusion and tamponade physiology; hep gtt stopped and CT surg consulted who plan to take patient to OR this morning. Pt states she was able to sleep relatively well last night. Seen again after her R thorascopic pericardial window and she reports significant decrease in her pleuritic chest pain, some post-procedural stridor and nausea each of which improved w meds, and is resting comfortably. - Exam Vitals: Temp Pulse Resp BP Pulse Ox 98.2 F 79 18 108/65 100 05/22/19 07:47 05/22/19 07:47 05/22/19 07:47 05/22/19 07:47 05/22/19 07:47 Exam: General: NAD, good eye contact, much more comfortable appearing today Thoracic: Normal breath sounds b/l, does have coarse bibasilar sounds. R post erolateral chest tube in place draining serosanguinous fluid Cardio: Normal S1 and S2, regular rhythm, tachycardic Abdomen: Soft, nontender, nondistended. Extremities: Warm, well perfused. DP pulses 2+ b/l. No clubbing, cyanosis. Improved nonpitting edema b/l legs Skin: Intact. No rashes, bruises, or ulcers Neuro: Awake, fully oriented. Speech fluent. - Summary of Assessment and Plan Summary of Assessment and Plan: Isael Reyes is a 68 F w hx CAD s/p CABG 04/2019, HTN, HLD, COPD, hypothyroidism, GERD, fibro, anx/dep, who p/w atypical chest pain, ECG w TWI in inferolateral leads, TTE showing large posterior pericardial effusion and RV chamber collapse, concerning for tamponade. 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 Initially managed as NSTEMI until CTPE and TTE results. Overnight, Cardio stopped hep gtt and consulted CT surg - tele - Cardio and CT Surg consults, appreciate co-management and plan for thoracostomy tube CAD s/p CABG, HLD: home ASA, statin HTN: holding home hctz 12.5, lisinopril 20 Anx/dep: home lexapro Obesity: BMI 32 Noted in history but not on meds: Asthma, hypothyroidism, GERD, Fibromyalgia PPx: SCDs FEN: cardiac, no MIVF Lines: PIV Consults: Cardio, CT Surg Code: Full Dispo: patient requires inpatient eval and management at this time. Anticipate 3-4 days. Will be homegoing Internal Medicine: Result - Labs CBC & Chem 7: 05/22/19 01:15 05/22/19 01:15 Labs: Short CBC 05/22/19 Range/Units 01:15 WBC 6.2 (4.3-11.1) K/mcL Hgb 9.7 L (11.5-15.4) g/dL Hct 31.0 L (35.3-44.9) % Plt Count 179 (140-400) K/mcL BMP 05/22/19 01:15 Sodium 137 Potassium 3.6 Chloride 105 Carbon Dioxide 23 BUN 19 Creatinine 0.69 Glucose 117 H Calcium 8.7 Cardiac Enzymes 05/21/19 Range/Units 16:57 Troponin I < 0.03 (< 0.04) ng/mL - ABG Interpretation ABG results: PT/INR, D-dimer PT 12.2 Seconds (9.4-12.1) H 05/21/19 16:57 1038 ng/mLFEU (0-500) H 05/21/19 16:57 - Impressions Impressions Echocardiogram Limited Views 05/21/19 15:25 Impressions: There is a moderate to large circumferential pericardial effusion present largest along the posterior wall of the LV. Echocardiographic signs of impending tamponade (RA and LA chamber collapse, possible RV early diastolic chamber collapse). Recommend clinical correlation. Repeat Echo as clinically indicated. Findings communicated to Hospitalist, Benton Santos. Left Ventricular Wall Motion: Rest Echo Findings All wall segments showed normal motion. Findings: Study Quality * Technically adequate exam. ECG Findings * Normal sinus rhythm. Left Ventricle * LVEF 60%. * Normal LV chamber size and wall thickness. Right Ventricle * Normal right ventricular structure and systolic function. Left Atrium * LA collapse is observed during late diastole. Right Atrium * RA collapse is observed during late diastole. Pericardium * There is a moderate to large circumferential pericardial effusion present largest along the posterior wall of the LV. There is LA/RA chamber collapse and possible RV chamber collapse during early diastole. No significant respiratory variation across the MV/TV. Normal IVC size without collapse. IVC * The IVC is not dilated. * < 50% respiratory change. Chest CTA 05/21/19 17:53 IMPRESSION: No evidence of pulmonary embolism or aortic dissection. New moderate-sized pericardial effusion. Correlate with any clinical evidence of tamponade. Pericardial fat stranding noted as well, and therefore correlate with clinical evidence of pericarditis. Interval sternotomy and CABG. There is a small amount of fluid and fat stranding seen within the anterior mediastinum. That is probably postsurgical edema and fluid, but close clinical follow-up is recommended as infection still remains in the differential. Small left pleural effusion with adjacent atelectasis. D/ / Bakari Vital MD / Bakari Vital MD Interpreting Provider: Bakari Vital MD Consult Discharge Plan - Plan Referrals: Abi Paulson MD [Primary Care Provider] -
--- NOTE | 2019-05-22 08:54 | Anesthesia Evaluation PreOp ---
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, depression) Other Medical History: GERD, Other (arthritis) Anesthesia History: Past Anesthesia (CABg, tubal, R hip ORIF, R knee scope) : No Alcohol Use: none Drug use: none Medications and Allergies Carvedilol 3.125 mg PO BID 10/02/17 [History] Aspirin [Lo-Dose Aspirin EC] 81 mg PO DAILY 04/10/19 [History] Calcium Carbonate/Vitamin D3 [Calcium 500-Vit D3 200 Caplet] 1 each PO DAILY 04/10/19 [History] Diclofenac Sodium [Voltaren] 1 appl TP QID PRN 04/10/19 [History] Escitalopram [Lexapro] 20 mg PO DAILY 04/10/19 [History] Pnv No.122/Iron/Folic Acid [ Multi Tablet] 1 each PO DAILY 04/10/19 [History] Zoledronic Acid (Reclast) [Reclast Premix 5 MG/100 ML] 5 mg IV [id number] 04/10/19 [History] Acetaminophen [Tylenol] 1,000 mg PO Q6HR PRN #0 04/25/19 [Rx] Ascorbic Acid [Vitamin C] 500 mg PO DAILY@0630 #30 tablet 04/25/19 [Rx] Cyanocobalamin (B-12) [Vitamin B12] 1,000 mcg PO DAILY #30 tablet 04/25/19 [Rx] Ferrous Sulfate 325 mg PO DAILY@0630 #30 tablet 04/25/19 [Rx] Lisinopril [Zestril] 20 mg PO DAILY tablet 04/25/19 [Rx] hydroCHLOROthiazide [Hydrochlorothiazide] 12.5 mg PO DAILY tablet 04/25/19 [Rx] Allergy/AdvReac Type Severity Reaction Status Date / Time acetaminophen [From Percocet] AdvReac Nausea Verified 05/21/19 08:33 meperidine [From Demerol] AdvReac Nausea Verified 10/02/17 09:24 oxycodone [From Percocet] AdvReac Nausea Verified 05/21/19 08:33 - Meds/Allergy Pre-op Review Medications Reviewed: Yes Allergies Reviewed: Yes Beta Blockers on Current Med List: Yes (coreg ) If Beta Blockers taken, Date/Time (Last Dose taken): 0834 Anesthesia Results - Labs 05/22/19 01:15 05/22/19 01:15 - Imaging EKG: report reviewed Additional studies: echocardiogram Impressions: There is a moderate to large circumferential pericardial effusion present largest along the posterior wall of the LV. Echocardiographic signs of impending tamponade (RA and LA chamber collapse, possible RV early diastolic chamber collapse). Recommend clinical correlation. Repeat Echo as clinically indicated. Findings communicated to Hospitalist, Benton Santos. Left Ventricular Wall Motion: Rest Echo Findings All wall segments showed normal motion. Findings: Study Quality * Technically adequate exam. ECG Findings * Normal sinus rhythm. Left Ventricle * LVEF 60%. * Normal LV chamber size and wall thickness. Right Ventricle * Normal right ventricular structure and systolic function. Left Atrium * LA collapse is observed during late diastole. Right Atrium * RA collapse is observed during late diastole. Pericardium * There is a moderate to large circumferential pericardial effusion present largest along the posterior wall of the LV. There is LA/RA chamber collapse and possible RV chamber collapse during early diastole. No significant respiratory variation across the MV/TV. Normal IVC size without collapse. IVC * The IVC is not dilated. * < 50% respiratory change. 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
[2019-05-22] MEDS ORDERED: Aspirin Enteric Coated 81 MG Tablet PO SCH (09:00)
[2019-05-22] MEDS ORDERED: *HR* PHENYLEPHRINE 1,000 MCG/10 ML SYRINGE IVP ONE (09:09)
[2019-05-22] MEDS ORDERED: Dexamethasone 4 MG/ML VIAL ONE (09:09)
[2019-05-22] MEDS ORDERED: *HR* FentaNYL (PF) 250 MCG/5 ML VIAL ONE (09:09)
[2019-05-22] MEDS ORDERED: *HR* Rocuronium Bromide 50 MG/5 ML VIAL ONE (09:09)
[2019-05-22] MEDS ORDERED: *HR* Etomidate 20 MG/10 ML AMPUL IVP ONE (09:10)
[2019-05-22] MEDS ORDERED: Lidocaine 2% Syringe 100 MG/5 ML ONE (09:10)
[2019-05-22] MEDS ORDERED: Ondansetron 4 MG/2 ML VIAL ONE (09:11)
[2019-05-22] MEDS ORDERED: Acetaminophen IV 1,000 MG/100 ML INFUS..BTL ONE (09:14)
[2019-05-22] MEDS ORDERED: ceFAZolin 2,000 MG in Water for inj. (sterile) 20 ML IVP ONE (09:53)
[2019-05-22] MEDS ORDERED: *HR* Labetalol 20 MG/4 ML SYRINGE IVP PRN (09:59)
[2019-05-22] MEDS ORDERED: Albuterol 2.5 MG/3 ML NEBULIZER IH ONE (09:59)
[2019-05-22] MEDS ORDERED: Ondansetron 4 MG/2 ML VIAL IVP ONE (09:59)
[2019-05-22] MEDS ORDERED: Ketorolac 30 MG/ML VIAL ONE (10:04)
[2019-05-22] MEDS ORDERED: Racepinephrine Neb 0.5 ML VIAL IH ONE ×2 (10:34→10:51)
[2019-05-22] MEDS ORDERED: Albuterol 2.5 MG/3 ML NEBULIZER ONE (10:34)
--- NOTE | 2019-05-22 10:35 | Operative Note ---
Date of procedure: 05/22/19 Pre-op diagnosis: pericardial effusion Post-op diagnosis: same Procedure: dx bronchoscopy, right thorascopic pericardial window Complications: o Anesthesia: GETA Surgeon: Jet Ferrara Co-Surgeon: Loretta Zamudio Was there an architectural administrative assistant present: No Estimated blood loss (cc): 1 Specimen: pericardial fluid Condition: stable Disposition: PACU Procedure in Detail: The patient was brought urgently to the operating room and placed on the operating table in the supine position. After undergoing general anesthesia with perioperative antibiotics and DVT prophylaxis on board, diagnostic bronchoscopy was used to place the double-lumen endotracheal tube in to make sure there were no endobronchial masses or atelectasis or mucous. There is normal branching pattern of the tracheobronchial tree. Patient was then placed on the operating room table in the right lateral decubitus position with care to pad all pressure points, prepped and draped in the usual sterile fashion. 4 thoracoscopy ports were placed generous pericardial window performed. Serous fluid within the pericardium was slightly murky and cultures obtained. A 24 Blade drain was placed into the pericardium secured into place with a #2 ethibond suture. The remaining incisions were closed with 0 Vicryl and 4-0 Monocryl subcuticular stitches with dressings consisting of Steri-Strips and sterile gauze. Patient tolerated the procedure extremely well she was taken to the recovery room breathing spontaneously and hemodynamically stable.
--- NOTE | 2019-05-22 10:41 | Event Note ---
Date of Encounter: 05/22/19 Time of Encounter: 10:39 - Cardiology Event Note Patient is s/p pericardial window for pericardial effusion. Suspect symptoms related to pericardial effusion. Troponin negative. TTE with LVEF preserved, no wall motion abnormalities noted. Continue ASA, statin, BB. Cardiology will sign off, will arrange outpatient follow up.
[2019-05-22] MEDS: *HR* FentaNYL (PF) 100 MCG/2 ML VIAL IVP PRN ×2 (10:56→11:03)
[2019-05-22] MEDS: *HR* Promethazine 25 MG/ML VIAL IVP PRN ×3 (11:06→23:40)
--- NOTE | 2019-05-22 11:16 | Anesthesia Evaluation Post Op ---
Date of Encounter: 05/22/19 Time of Encounter: 11:16 - Vital Signs Vital Signs: Vital Signs/O2 Sat/Glucose, Most Recent Temp Pulse Resp BP Pulse Ox 98.2 F 89 16 114/86 100 05/22/19 11:00 05/22/19 11:10 05/22/19 11:10 05/22/19 11:10 05/22/19 11:10 Blood Glucose* 116 - Lungs Lungs: Clear Ascult./Percussion - Airway Airway: Non-obstructed - Cardiovascular Regular Rate - Mental Status Mental Status: Alert & Oriented, Answers Appropriately - Pain Pain Scale: 2 - Nausea Vomiting Nausea Vomiting: Responds to treatment with IV Meds - Hydration Hydration: NPO - Discharge PostOp Status: Transfer Patient to floor
[2019-05-22] MEDS: Ondansetron 4 MG/2 ML VIAL IVP PRN ×2 (12:36→20:43)
[2019-05-22] MEDS: *HR* HYDROcodone/Acet 5/325 mg TABLET PO PRN ×4 (12:36→23:40)
[2019-05-22] MEDS: Gabapentin 300 MG CAPSULE PO SCH ×2 (13:45→20:44)
[2019-05-23 02:22] LABS: Hematocrit 29.1 % (35.3-44.9); Hemoglobin 9.3 g/dL (11.5-15.4); Mean Corpuscular Hemoglobin 26.3 pg (28.0-33.3); Mean Corpuscular Volume 82.2 fL (83.0-100.0); Mean Platelet Volume 10.9 fL (9.4-12.4); Platelet Count 200 K/mcL (140-400); Red Blood Count 3.54 M/mcL (3.82-4.97); Red Cell Distribution Width 19.6 % (11.5-14.5)
[2019-05-23 02:24] LABS: White Blood Count 10.7 K/mcL (4.3-11.1)
[2019-05-23 02:49] LABS: Alanine Aminotransferase 146 Units/L (7-52); Albumin 3.4 g/dL (3.5-5.7); Albumin/Globulin Ratio 1.3 (1.1-2.2); Alkaline Phosphatase 315 Units/L (34-104); Aspartate Amino Transferase 188 Units/L (13-39); BUN/Creatinine Ratio 33 (6-26); Bilirubin,Direct 0.1 mg/dL (0.0-0.2); Bilirubin,Indirect 0.3 mg/dL (0.0-1.2); Bilirubin,Total 0.4 mg/dL (0.3-1.0); Blood Urea Nitrogen 20 mg/dL (8-23); Carbon Dioxide 23 mEq/L (23-29); Chloride 102 mEq/L (98-107); Globulin 2.7 g/dL (2.4-3.5); Glucose 179 mg/dL (70-105); Magnesium 1.9 mg/dL (1.6-2.6); Osmolality,Calculated 289 (280-300); Potassium 4.1 mEq/L (3.5-5.1); Sodium 136 mEq/L (136-145); Total Protein 6.1 g/dL (6.4-8.9); eGFR For African Americans > 60 (> 60); eGFR For Non-African Americans > 60 (> 60)
[2019-05-23] MEDS: Ondansetron 4 MG/2 ML VIAL IVP PRN ×3 (04:06→20:54)
[2019-05-23] MEDS: *HR* HYDROcodone/Acet 5/325 mg TABLET PO PRN ×6 (04:06→20:51)
[2019-05-23] MEDS: Aspirin Enteric Coated 81 MG Tablet PO SCH (07:37)
[2019-05-23] MEDS: Gabapentin 300 MG CAPSULE PO SCH ×3 (07:37→20:50)
--- NOTE | 2019-05-23 07:53 | Internal Med Progress Note ---
Hospitalist Progress Note - Encounter Date of Encounter: 05/23/19 Time of Encounter: 07:53 - Subjective Interval History: Pt has increased pain today and says her RUQ and R lower chest are very achy causing her to feel SOB. Some nausea this AM and has poor appetite. Does not want to get pneumonia. Pleased that her tube isn't draining much. - Exam Vitals: Temp Pulse Resp BP Pulse Ox 98.0 F 66 17 109/66 98 05/23/19 06:42 05/23/19 07:41 05/23/19 06:42 05/23/19 06:42 05/23/19 06:42 Exam: General: NAD, good eye contact, uncomfortable appearing today Thoracic: Normal breath sounds b/l, does have coarse bibasilar sounds. R posterolateral chest tube in place without output this AM Cardio: Normal S1 and S2, regular rhythm and rate Abdomen: Soft, nontender Extremities: Warm, well perfused. DP pulses 2+ b/l. No edema Skin: Intact. No rashes, bruises, or ulcers Neuro: Awake, fully oriented. Speech fluent. - Summary of Assessment and Plan Summary of Assessment and Plan: Isael Reyes is a 68 F w hx CAD s/p CABG 04/2019, HTN, HLD, COPD, hypothyroidism, GERD, fibro, anx/dep, who p/w atypical chest pain, ECG w TWI in inferolateral leads, TTE showing large posterior pericardial effusion and RV chamber collapse, concerning for tamponade. 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 CT Surg Dr Zamudio took patient for VATS and pericardial window on 05/22. Pt tolerated well, improving. - minimal output, per CTS drain placed to waterseal and will leave another 2-3 days, appreciate co-management CAD s/p CABG, HLD: home ASA, statin HTN: holding home hctz 12.5, lisinopril 20 Anx/dep: home lexapro Obesity: BMI 32 Noted in history but not on meds: Asthma, hypothyroidism, GERD, Fibromyalgia PPx: SCDs FEN: cardiac, no MIVF Lines: PIV Consults: Cardio, CT Surg Code: Full Dispo: patient requires inpatient eval and management at this time. Anticipate 3-4 days. Will be homegoing Internal Medicine: Result - Labs CBC & Chem 7: 05/23/19 01:14 05/23/19 01:14 Labs: Short CBC 05/23/19 Range/Units 01:14 WBC 10.7 D (4.3-11.1) K/mcL Hgb 9.3 L (11.5-15.4) g/dL Hct 29.1 L (35.3-44.9) % Plt Count 200 (140-400) K/mcL BMP 05/23/19 01:14 Sodium 136 Potassium 4.1 Chloride 102 Carbon Dioxide 23 BUN 20 Creatinine 0.60 Glucose 179 H Calcium 9.0 Liver Function 05/23/19 Range/Units 01:14 Total Bilirubin 0.4 (0.3-1.0) mg/dL Direct Bilirubin 0.1 (0.0-0.2) mg/dL AST 188 H (13-39) Units/L ALT 146 H (7-52) Units/L Alkaline Phosphatase 315 H (34-104) Units/L Albumin 3.4 L (3.5-5.7) g/dL - ABG Interpretation ABG results: PT/INR, D-dimer PT 12.2 Seconds (9.4-12.1) H 05/21/19 16:57 1038 ng/mLFEU (0-500) H 05/21/19 16:57 - Impressions Impressions Chest X-Ray 05/23/19 08:00 IMPRESSION: No definite pleural effusion or pneumothorax. Left basilar atelectasis or pneumonia. D/ / Uriel Sweet MD / Uriel Sweet MD Interpreting Provider: Uriel Sweet MD Consult Discharge Plan - Plan Referrals: Abi Paulson MD [Primary Care Provider] -
[2019-05-23] MEDS ORDERED: *HR* OxyCODONE Immed Rel 5 MG TABLET PO ONE (08:55)
--- NOTE | 2019-05-23 09:20 | Cardiothoracic Progress Note ---
Date of Encounter: 05/23/19 Time of Encounter: 09:12 - Assessment and plan (1) Pericardial effusion Current Visit: Yes Status: Acute The patient is recovering well from her right VATS with pericardial window. The chest tube drainage has decreased. The chest tube will remain on waterseal for 2-3 more days. The assessment and plan as outlined above was discussed with the patient and/or family members who expressed understanding and agreement. All que stions were answered. - Subjective Procedure(s) Performed: POD#1 S/P Right VATS with pericardial window Interval history: The patient remained hemodynamic stable overnight. She is experiencing some incisional discomfort. Vital Signs, Last 4 Hours Temp Pulse Resp BP Pulse Ox 05/23/19 07:41 66 05/23/19 06:42 98.0 F 64 17 109/66 98 Oxgyen Flow Rate Oxygen Flow Rate (LPM) 2 Clinical Data, last 8 Hours Output, Chest Tube Drainage 0 Amount [Right Lateral Chest] Output, Chest Tube Drainage 10 Amount [Right Lateral Chest] Output, Urine Amount 400 Weight 05/21/19 05/22/19 05/23/19 23:59 23:59 23:59 Weight 86.3 kg 87.4 kg - Physical Examination General: Conversant, No Apparent Distress Neck: No JVD, Normal carotid pulses Cardiac: Reg Rate and Rhythm, Normal S1 and S2, No Murmur Incision: No signs of infection, Dry/intact dressing Chest tubes: Minimal drainage, Other (No air leak) Lungs: Normal Breath Sounds, No Wheeze, Rales, Rhonchi Neuro: Alert and responsive, No focal deficits noted Vascular: Normal capillary refill Extremities: No Clubbing, No Cyanosis, No Edema - Labs 05/23/19 01:14 05/23/19 01:14 Lab Results, Last 24 hours 05/23/19 05/23/19 01:14 01:14 WBC 10.7 D Hgb 9.3 L Hct 29.1 L Plt Count 200 Sodium 136 Potassium 4.1 Chloride 102 Carbon Dioxide 23 BUN 20 Creatinine 0.60 Glucose 179 H Calcium 9.0 Magnesium 1.9 Total Bilirubin 0.4 AST 188 H ALT 146 H Alkaline Phosphatase 315 H - Imaging Chest Xray: image reviewed (No pneumothorax. Minimal atelectasis/infiltrates.) Consult Discharge Plan - Plan Referrals: Abi Paulson MD [Primary Care Provider] -
[2019-05-23] MEDS: *HR* Promethazine 25 MG/ML VIAL IVP PRN (16:13)
[2019-05-24] MEDS: *HR* HYDROcodone/Acet 5/325 mg TABLET PO PRN ×5 (00:57→20:51)
[2019-05-24] MEDS: *HR* Promethazine 25 MG/ML VIAL IVP PRN ×2 (00:57→20:50)
[2019-05-24 04:01] LABS: Hematocrit 30.7 % (35.3-44.9); Hemoglobin 9.4 g/dL (11.5-15.4); Mean Corpuscular HGB Conc 30.6 g/dL (31.6-35.5); Mean Corpuscular Hemoglobin 26.3 pg (28.0-33.3); Mean Corpuscular Volume 85.8 fL (83.0-100.0); Mean Platelet Volume 10.7 fL (9.4-12.4); Platelet Count 220 K/mcL (140-400); Red Blood Count 3.58 M/mcL (3.82-4.97); Red Cell Distribution Width 20.2 % (11.5-14.5); White Blood Count 7.3 K/mcL (4.3-11.1)
[2019-05-24 04:03] LABS: Alanine Aminotransferase 336 Units/L (7-52); Albumin 3.4 g/dL (3.5-5.7); Alkaline Phosphatase 560 Units/L (34-104); Aspartate Amino Transferase 600 Units/L (13-39); BUN/Creatinine Ratio 25 (6-26); Bilirubin,Direct 0.4 mg/dL (0.0-0.2); Bilirubin,Indirect 0.4 mg/dL (0.0-1.2); Bilirubin,Total 0.8 mg/dL (0.3-1.0); Blood Urea Nitrogen 17 mg/dL (8-23); Calcium 9.3 mg/dL (8.6-10.3); Carbon Dioxide 26 mEq/L (23-29); Chloride 103 mEq/L (98-107); Globulin 3.3 g/dL (2.4-3.5); Glucose 180 mg/dL (70-105); Osmolality,Calculated 290 (280-300); Potassium 4.2 mEq/L (3.5-5.1); Sodium 137 mEq/L (136-145); Total Protein 6.7 g/dL (6.4-8.9); eGFR For African Americans > 60 (> 60); eGFR For Non-African Americans > 60 (> 60)
[2019-05-24] MEDS: Ondansetron 4 MG/2 ML VIAL IVP PRN ×2 (04:59→12:32)
[2019-05-24] MEDS: Aspirin Enteric Coated 81 MG Tablet PO SCH (07:18)
[2019-05-24] MEDS: Gabapentin 300 MG CAPSULE PO SCH ×3 (07:18→20:51)
--- NOTE | 2019-05-24 07:23 | Internal Med Progress Note ---
Hospitalist Progress Note - Encounter Date of Encounter: 05/24/19 Time of Encounter: 07:23 - Subjective Interval History: States she feels a bit better each day. She is sitting in bedside chair today eating breakfast and says that while she still has some pain and SOB, overall it continues to improve. No BM since admission and feels constipated. Does still complain of RUQ abd pain in addition to chest/side pain. - Exam Vitals: Temp Pulse Resp BP Pulse Ox 98.4 F 69 16 109/68 94 05/24/19 04:23 05/24/19 04:23 05/24/19 04:05/24/19 04:05/24/19 04:23 Exam: General: NAD, good eye contact, comfortable appearing today Thoracic: Normal breath sounds b/l, does have coarse bibasilar sounds. R posterolateral chest tube in place without output this AM Cardio: Normal S1 and S2, regular rhythm and rate Abdomen: Soft, mildly tender to palpation RUQ and near site of chest tube Extremities: Warm, well perfused. DP pulses 2+ b/l. No edema Skin: Intact. No rashes, bruises, or ulcers Neuro: Awake, fully oriented. Speech fluent. - Summary of Assessment and Plan Summary of Assessment and Plan: Isael Reyes is a 68 F w hx CAD s/p CABG 04/2019, HTN, HLD, COPD, hypothyroidism, GERD, fibro, anx/dep, who p/w atypical chest pain, ECG w TWI in inferolateral leads, TTE showing large posterior pericardial effusion and RV chamber collapse, concerning for tamponade. 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 CT Surg Dr Zamudio took patient for VATS and pericardial window on 05/22. Pt tolerated well, continues improving daily. - decreasing output, per CTS drain to remain on waterseal for 2-3 days, appreciate co-management Transaminitis and RUQ abd pain: - CT abd to evaluate liver/RUQ given recent nearby thoracostomy - trend LFTs Constipation: schedule miralax and colace CAD s/p CABG, HLD: home ASA, statin HTN: holding home hctz 12.5, lisinopril 20 Anx/dep: home lexapro Obesity: BMI 32 Noted in history but not on meds: Asthma, hypothyroidism, GERD, Fibromyalgia PPx: SCDs FEN: cardiac, no MIVF Lines: PIV Consults: Cardio, CT Surg Code: Full Dispo: patient requires inpatient eval and management at this time. Anticipate 3-4 days. Will be homegoing Internal Medicine: Result - Labs CBC & Chem 7: 05/24/19 03:23 05/24/19 03:23 Labs: Short CBC 05/24/19 Range/Units 03:23 WBC 7.3 (4.3-11.1) K/mcL Hgb 9.4 L (11.5-15.4) g/dL Hct 30.7 L (35.3-44.9) % Plt Count 220 (140-400) K/mcL BMP 05/24/19 03:23 Sodium 137 Potassium 4.2 Chloride 103 Carbon Dioxide 26 BUN 17 Creatinine 0.68 Glucose 180 H Calcium 9.3 Liver Function 05/24/19 Range/Units 03:23 Total Bilirubin 0.8 (0.3-1.0) mg/dL Direct Bilirubin 0.4 H (0.0-0.2) mg/dL AST 600 H (13-39) Units/L ALT 336 H (7-52) Units/L Alkaline Phosphatase 560 H (34-104) Units/L Albumin 3.4 L (3.5-5.7) g/dL - ABG Interpretation ABG results: PT/INR, D-dimer PT 12.2 Seconds (9.4-12.1) H 05/21/19 16:57 1038 ng/mLFEU (0-500) H 05/21/19 16:57 Consult Discharge Plan - Plan Referrals: Abi Paulson MD [Primary Care Provider] -
--- NOTE | 2019-05-24 10:41 | Cardiothoracic Progress Note ---
Date of Encounter: 05/24/19 Time of Encounter: 10:32 - Assessment and plan (1) Pericardial effusion Current Visit: Yes Status: Acute The patient is recovering well from her right VATS with pericardial window. The chest tube drainage continues to decrease. The chest tube will remain on waterseal for 2-3 more days. The assessment and plan as outlined above was discussed with the patient and/or family members who expressed understanding and agreement. All questions were answered. - Subjective Procedure(s) Performed: POD#2 S/P Right VATS with pericardial window Interval history: The patient remained hemodynamically stable overnight. She is sitting in a chair at the bedside and is breathing comfortably. She has no complaints. Vital Signs, Last 4 Hours Temp Pulse Resp BP Pulse Ox 05/24/19 07:37 97.7 F 63 17 115/63 98 05/24/19 07:19 61 Oxgyen Flow Rate Oxygen Flow Rate (LPM) 2 Clinical Data, last 8 Hours Output, Chest Tube Drainage 10 Amount [Right Lateral Chest] Output, Chest Tube Drainage 0 Amount [Right Lateral Chest] Output, Urine Amount 600 Weight 05/22/19 05/23/19 05/24/19 23:59 23:59 23:59 Weight 87.4 kg 81.6 kg - Physical Examination General: Conversant, No Apparent Distress Neck: No JVD, Normal carotid pulses Cardiac: Reg Rate and Rhythm, Normal S1 and S2, No Murmur Incision: No signs of infection, Dry/intact dressing Chest tubes: Minimal drainage, Other (No air leak) Lungs: Normal Breath Sounds, No Wheeze, Rales, Rhonchi Neuro: Alert and responsive, No focal deficits noted Vascular: Normal capillary refill Extremities: No Clubbing, No Cyanosis, No Edema - Labs 05/24/19 03:23 05/24/19 03:23 Lab Results, Last 24 hours 05/24/19 05/24/19 03:23 03:23 WBC 7.3 Hgb 9.4 L Hct 30.7 L Plt Count 220 Sodium 137 Potassium 4.2 Chloride 103 Carbon Dioxide 26 BUN 17 Creatinine 0.68 Glucose 180 H Calcium 9.3 Total Bilirubin 0.8 AST 600 H ALT 336 H Alkaline Phosphatase 560 H - Imaging Chest Xray: image reviewed (No pneumothorax. Small left pleural effusion.) Consult Discharge Plan - Plan Referrals: Abi Paulson MD [Primary Care Provider] -
[2019-05-25] MEDS: Ondansetron 4 MG/2 ML VIAL IVP PRN (01:04)
[2019-05-25] MEDS: *HR* HYDROcodone/Acet 5/325 mg TABLET PO PRN ×2 (01:04→05:41)
[2019-05-25] MEDS: *HR* Promethazine 25 MG/ML VIAL IVP PRN ×2 (05:42→20:30)
--- NOTE | 2019-05-25 07:38 | Internal Med Progress Note ---
Hospitalist Progress Note - Encounter Date of Encounter: 05/25/19 Time of Encounter: 07:37 - Subjective Interval History: Pt states she is feeling better this AM, in good spirits, eating breakfast. RN says she's decreased pain med frequency and is getting up to chair often. Pt does remark about still not having had BM despite miralax, and amenable to trial of suppository. Encouraged to ambulate and wean pain meds as able. - Exam Vitals: Temp Pulse Resp BP Pulse Ox 98.3 F 65 16 89/57 95 05/25/19 07:28 05/25/19 07:28 05/25/19 07:28 05/25/19 07:28 05/25/19 07:28 Exam: General: NAD, good eye contact, comfortable appearing Thoracic: Normal breath sounds b/l, does have coarse bibasilar sounds. R posterolateral chest tube in place with minimal output this AM Cardio: Normal S1 and S2, regular rhythm and rate Abdomen: Soft, persistent mild TTP RUQ and near site of chest tube Extremities: Warm, well perfused. DP pulses 2+ b/l. No edema Skin: Intact. No rashes, bruises, or ulcers Neuro: Awake, fully oriented. Speech fluent. - Summary of Assessment and Plan Summary of Assessment and Plan: Isael Reyes is a 68 F w hx CAD s/p CABG 04/2019, HTN, HLD, COPD, hypothyroidism, GERD, fibro, anx/dep, who p/w atypical chest pain, ECG w TWI in inferolateral leads, TTE showing large posterior pericardial effusion and RV chamber collapse, concerning for tamponade. Pt underwent VATS and pericardial windown 05/[address] Zamudio, and remains for chest tube management. 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 CT Surg Dr Zamudio took patient for VATS and pericardial window on 05/22. Pt tolerated well, continues improving daily. - decreasing output, per CTS drain to remain on waterseal for 1-2 days, appreciate co-management Transaminitis and RUQ abd pain: CT abd without acute pathology, but LFTs continue to rise - trend LFTs - change norco to oxycodone w/o tylenol - hold statin - consult GI Constipation: continue miralax and colace, wean pain meds, and trial suppository CAD s/p CABG, HLD: home ASA, statin HTN: borderline hypotensive, home coreg 3.125, holding home hctz 12.5 and lisinopril 20 Anx/dep: home lexapro Obesity: BMI 32 Noted in history but not on meds: Asthma, hypothyroidism, GERD, Fibromyalgia PPx: SCDs FEN: cardiac, no MIVF Lines: PIV Consults: Cardio, CT Surg Code: Full Dispo: patient requires inpatient eval and management at this time. Anticipate 2-3 days. Will be homegoing Internal Medicine: Result - Labs CBC & Chem 7: 05/24/19 03:23 05/24/19 03:23 - ABG Interpretation ABG results: PT/INR, D-dimer PT 12.2 Seconds (9.4-12.1) H 05/21/19 16:57 1038 ng/mLFEU (0-500) H 05/21/19 16:57 - Impressions Impressions Chest X-Ray 05/24/19 08:00 IMPRESSION: Stable examination with trace left pleural effusion. D/ / 05/24/2019 09:11:40 Juan Clemens MD / chela Interpreting Provider: Juan Clemens MD Abdomen CT 05/24/19 10:17 IMPRESSION: No CT evidence of acute intra-abdominal process. Partially visualized small left pleural effusion. Partially visualized right-sided chest tube with catheter tip terminating along the right pericardial cavity. D/ / Mihai Gonzalez / Mihai Gonzalez Interpreting Provider: Mihai Gonzalez Consult Discharge Plan - Plan Referrals: Abi Paulson MD [Primary Care Provider] -
[2019-05-25] MEDS: Aspirin Enteric Coated 81 MG Tablet PO SCH (07:45)
[2019-05-25] MEDS: Gabapentin 300 MG CAPSULE PO SCH ×3 (07:45→20:30)
[2019-05-25 08:58] LABS: Albumin 3.3 g/dL (3.5-5.7); Albumin/Globulin Ratio 1.1 (1.1-2.2); Bilirubin,Direct 0.7 mg/dL (0.0-0.2); Bilirubin,Indirect 0.4 mg/dL (0.0-1.2); Bilirubin,Total 1.1 mg/dL (0.3-1.0); Globulin 3.1 g/dL (2.4-3.5); Magnesium 2.2 mg/dL (1.6-2.6); Total Protein 6.4 g/dL (6.4-8.9)
--- NOTE | 2019-05-25 12:07 | Gastroenterology Consult Note ---
Date of Encounter: 05/25/19 Time of Encounter: 10:30 - Assessment and plan (1) RUQ abdominal pain Current Visit: Yes Status: Acute Assessment and plan: Pt is s/p right VATS, pericardial window, and has a right chest tube. She is also complaining of constipation. Pain may be related to chest tube and constipation however she has a history of Mauro-en-Y and duodenal ulcer. Will order laxatives may need EGD to rule out esophagitis, gastritis, duodenitis, peptic ulcer disease, or AVM. Will discuss with Dr. Funez. Addendum: Spoke with Dr Funez at 1530. He states pain may be related to chest tube and advised mineral oil enemas for constipation. (2) Epigastric abdominal pain Current Visit: Yes Status: Acute (3) Pericardial effusion Current Visit: Yes Status: Acute (4) History of duodenal ulcer Current Visit: No Status: Acute (5) Iron deficiency anemia Current Visit: No Status: Acute Qualifiers: Iron deficiency anemia type: unspecified iron deficiency Qualified Code(s): D50.9 - Iron deficiency anemia, unspecified (6) Elevated LFTs Current Visit: Yes Status: Acute Assessment and plan: LFTs are elevated, CT shows no evidence of liver disease, gallbladder is absent. May be related to ischemic hepatitis as patient has been noted to have blood pressures in the 80s and 90s systolic. - Time Spent With Patient Total time spent is greater than 50% in coordination of care (as documented) at patient's floor/unit and/or counseling patient: GI History of Present Illness - Data of Consult Patient: new to practice Consult date: 05/25/19 Requesting Physician: Kirit Ivy - Consult Narrative Reason for consult: RUQ pain History of present illness: Ms. Reyes is a 68 year old female w hx CAD s/p CABG 04/2019, HTN, HLD, asthma, hypothyroidism, GERD, fibro, and anx/dep. She presented with chest pain in the middle of her chest, radiating to b/l shoulders and up into neck/jaw, continuous, not exertional and not relieved with ASA or tylenol. It was associated with sensation of SOB and patient says she has worsening of pain with deep inspiration. She had AL and CABG performed here in April 2019, discharged to SNF after 1 week and just went home about 1 week ago. Says her activity level has been improving, able to walk 30 minutes continuously, and that this pain and SOB is definitely concerning as she hasn't felt this since just before her CABG. She was found to have pericardial effusion and is status post right VATS with a pericardial window. She has decreasing drainage from the chest tube. She reports pain in her epigastric, RUQ and into her lower abdomen. She denies any BM since admission on . She denies feeling as if she needs to have a BM. She states she has taken colace and miralax without relief. She reports normal BMs at home before admission, states they were black but she is on po iron supplements. She does have a history of gastric bypass and "acid reflux surgery". She denies any bright red rectal bleeding. Procedures: 10/11/[address] Sood normal esophagus, dilation in the entire esophagus. Evidence of Mauro-en-Y gastric bypass. Colonoscopy 06/09/2015 normal colon nsaids: asa 81 mg anticoagulants: none Past Med Surg Social Fam HX - Past Medical History Medical history: arthritis, asthma, coronary artery disease, fibromyalgia, GERD, hyperlipidemia, hypertension, thyroid disease, other Additional medical history: Thyroid cysts Psychiatric history: depression - Past Surgical History Surgical History: appendectomy, cholecystectomy, coronary bypass (CABG), knee replacement (Right total knee replacement), other (Tubal ligation, right hip ORIF, right knee arthroscopy) Additional surgical history: Tubal - Social History Smoking Status: Former smoker Smokeless Tobacco Status: No Alcohol use: none Drug use: none - Family History Mother Hx Family Cancer: Yes Hx Family Neuromuscular Disorders: Yes (parkinsons) Father Hx Family Cardiac Disorders: Yes (heart dx) Hx Family Neurologic Disorders: Yes (Dementia) Review of Systems: GI: as per [facility]: denies fever, has some chills EYES: denies yellow discoloration ENT: denies pain with swallowing or difficulty swallowing CARDIO: see hpi RESP: Shortness of breath with exertion : denies change in color of urine NEURO: weakness HEME: Denies any bruising MS: denies joint pain, joint swelling or back pain. DERM: denies rash or itching PSYCH:history of anxiety or depression - Constitutional Vitals: Temp Pulse Resp BP Pulse Ox 98.3 F 67 16 111/72 95 05/25/19 11:05 05/25/19 11:05 05/25/19 11:05 05/25/19 11:05 05/25/19 11:05 Exam: CONSTITUTIONAL:alert, no acute distress.HEAD:normocephalic.EYES:no jaundice.NECK:no obvious swelling.HEART:regular rate and rhythm, no murmurs.LUNGS:bilateral fair air entry.ABDOMEN:non distended, soft, tender RUQ, no masses palpable, no organomegaly.RECTAL EXAM:Deferred.EXTREMITIES:no clubbing, cyanosis or edema.SKIN:pallor noted, no stigmata of chronic liver disease.NEUROLOGIC:no obvious focal defect. Results - Labs CBC & Chem 7: 05/24/19 03:23 05/24/19 03:23 Labs: Entire Visit 05/25/19 08:07 Total Bilirubin 1.1 H AST 979 H ALT 592 H - ABG ABG results: PT/INR, D-dimer PT 12.2 Seconds (9.4-12.1) H 05/21/19 16:57 1038 ng/mLFEU (0-500) H 05/21/19 16:57 - Impressions Impressions Abdomen CT 05/24/19 10:17 IMPRESSION: No CT evidence of acute intra-abdominal process. Partially visualized small left pleural effusion. Partially visualized right-sided chest tube with catheter tip terminating along the right pericardial cavity. D/ / Mihai Gonzalez / Mihai Gonzalez Interpreting Provider: Mihai Gonzalez Consult Discharge Plan - Plan Referrals: Abi Paulson MD [Primary Care Provider] -
[2019-05-25] MEDS: *HR* OxyCODONE Immed Rel 5 MG TABLET PO PRN ×2 (13:13→20:29)
[2019-05-25] MEDS: Bisacodyl 10 MG RECTAL SUPPOSITORY RC PRN (14:06)
[2019-05-26] MEDS: *HR* OxyCODONE Immed Rel 5 MG TABLET PO PRN ×3 (00:31→09:46)
[2019-05-26] MEDS: *HR* Promethazine 25 MG/ML VIAL IVP PRN (04:36)
[2019-05-26] MEDS: Aspirin Enteric Coated 81 MG Tablet PO SCH (07:51)
[2019-05-26] MEDS: Gabapentin 300 MG CAPSULE PO SCH ×2 (07:52→14:25)
[2019-05-26 07:57] LABS: Hemoglobin 8.9 g/dL (11.5-15.4); Mean Corpuscular HGB Conc 30.7 g/dL (31.6-35.5); Mean Corpuscular Hemoglobin 26.3 pg (28.0-33.3); Mean Corpuscular Volume 85.8 fL (83.0-100.0); Platelet Count 284 K/mcL (140-400); Red Blood Count 3.38 M/mcL (3.82-4.97); White Blood Count 4.8 K/mcL (4.3-11.1)
[2019-05-26 08:17] LABS: Alanine Aminotransferase 460 Units/L (7-52); Albumin 3.4 g/dL (3.5-5.7); Albumin/Globulin Ratio 1.1 (1.1-2.2); Alkaline Phosphatase 865 Units/L (34-104); Aspartate Amino Transferase 621 Units/L (13-39); BUN/Creatinine Ratio 28 (6-26); Bilirubin,Direct 0.7 mg/dL (0.0-0.2); Bilirubin,Indirect 0.3 mg/dL (0.0-1.2); Blood Urea Nitrogen 15 mg/dL (8-23); Calcium 9.5 mg/dL (8.6-10.3); Carbon Dioxide 32 mEq/L (23-29); Chloride 101 mEq/L (98-107); Globulin 3.1 g/dL (2.4-3.5); Glucose 95 mg/dL (70-105); Magnesium 2.3 mg/dL (1.6-2.6); Osmolality,Calculated 293 (280-300); Potassium 4.5 mEq/L (3.5-5.1); Sodium 141 mEq/L (136-145); Total Protein 6.5 g/dL (6.4-8.9); eGFR For African Americans > 60 (> 60); eGFR For Non-African Americans > 60 (> 60)
--- NOTE | 2019-05-26 09:40 | Cardiothoracic Progress Note ---
Date of Encounter: 05/26/19 Time of Encounter: 09:40 - Assessment and plan (1) Pericardial effusion Current Visit: Yes Status: Acute The assessment and plan as outlined above was discussed with the patient and/or family members who expressed understanding and agreement. All questions were answered. home per primary Vital Signs, Last 4 Hours Temp Pulse Resp BP Pulse Ox 05/26/19 07:42 98.2 F 64 17 102/60 99 Oxgyen Flow Rate Oxygen Flow Rate (LPM) 2 Clinical Data, last 8 Hours Output, Urine Amount 0 Weight 05/24/19 05/25/19 05/26/19 23:59 23:59 23:59 Weight 81.6 kg - Physical Examination General: Conversant, No Apparent Distress HEENT: Atraumatic, Normocephaly Incision: No signs of infection, Dry/intact dressing Lungs: Normal Breath Sounds Neuro: Alert and responsive, No focal deficits noted, Cranial nerves intact, Motor nerves intact - Labs 05/26/19 07:43 05/26/19 07:43 Lab Results, Last 24 hours 05/26/19 05/26/19 07:43 07:43 WBC 4.8 Hgb 8.9 L Hct 29.0 L Plt Count 284 Sodium 141 Potassium 4.5 Chloride 101 Carbon Dioxide 32 H BUN 15 Creatinine 0.54 L Glucose 95 Calcium 9.5 Magnesium 2.3 Total Bilirubin 1.0 AST 621 H ALT 460 H Alkaline Phosphatase 865 H Consult Discharge Plan - Plan Referrals: Abi Paulson MD [Primary Care Provider] -
[2019-05-26] MEDS: Ondansetron 4 MG/2 ML VIAL IVP PRN (09:50)
--- NOTE | 2019-05-26 12:06 | Internal Med Progress Note ---
Hospitalist Progress Note - Encounter Date of Encounter: 05/26/19 Time of Encounter: 12:02 - Subjective Interval History: Pt says she feels a lot better. Still some mild RUQ pain but improving, and her chest discomfort is resolved, able to take good deep breaths. Did have BM yesterday but KUB this AM still shows stool burden suggestive of constipation. No fever, N/V/D, SOB, leg swelling. - Exam Vitals: Temp Pulse Resp BP Pulse Ox 98.4 F 64 16 112/62 94 05/26/19 11:47 05/26/19 07:42 05/26/19 11:47 05/26/19 11:47 05/26/19 11:47 Exam: General: NAD, good eye contact, comfortable, pleasant Thoracic: Normal breath sounds b/l, does have coarse bibasilar sounds. R posterolateral chest bandaged but c/d/i Cardio: Normal S1 and S2, regular rhythm and rate Abdomen: Soft, persistent mild TTP RUQ Extremities: Warm, well perfused. DP pulses 2+ b/l. No edema Skin: Intact. No rashes, bruises, or ulcers Neuro: Awake, fully oriented. Speech fluent. - Summary of Assessment and Plan Summary of Assessment and Plan: Isael Reyes is a 68 F w hx CAD s/p CABG 04/2019, HTN, HLD, COPD, hypothyroidism, GERD, fibro, anx/dep, who p/w atypical chest pain, ECG w TWI in inferolateral leads, TTE showing large posterior pericardial effusion and RV chamber collapse, concerning for tamponade. Pt underwent VATS and pericardial windown 05/[address] Zamudio, which steadily improved and tube removed on 05/25. Hospital course c/b transaminitis felt due to transient hypotension which began to improve with time. Post-CABG pericarditis and pericardial effusion causing tamponade physiology: CT Surg Dr Zamudio took patient for VATS and pericardial window on 05/22, chest tube removed 05/25 and today appears stable. Cleared for d/c per CT Surg with outpatient f/u. Transaminitis and RUQ abd pain: CT abd without acute pathology, LFTs downtrending today, per GI will outpatient f/u for lab monitoring. Avoiding tylenol and statin for now. Constipation: continue miralax and colace, repeat suppository, and give mag citrate CAD s/p CABG, HLD: home ASA, statin HTN: borderline hypotensive, home coreg 3.125, holding home hctz 12.5 and lisinopril 20 Anx/dep: home lexapro Obesity: BMI 32 Noted in history but not on meds: Asthma, hypothyroidism, GERD, Fibromyalgia PPx: SCDs FEN: cardiac, no MIVF Lines: PIV Consults: Cardio, CT Surg Code: Full Dispo: patient requires inpatient eval and management at this time. Anticipate d/c today or tomorrow. Will be homegoing Internal Medicine: Result - Labs CBC & Chem 7: 05/26/19 07:43 05/26/19 07:43 Labs: Short CBC 05/26/19 Range/Units 07:43 WBC 4.8 (4.3-11.1) K/mcL Hgb 8.9 L (11.5-15.4) g/dL Hct 29.0 L (35.3-44.9) % Plt Count 284 (140-400) K/mcL BMP 05/26/19 07:43 Sodium 141 Potassium 4.5 Chloride 101 Carbon Dioxide 32 H BUN 15 Creatinine 0.54 L Glucose 95 Calcium 9.5 Liver Function 05/26/19 Range/Units 07:43 Total Bilirubin 1.0 (0.3-1.0) mg/dL Direct Bilirubin 0.7 H (0.0-0.2) mg/dL AST 621 H (13-39) Units/L ALT 460 H (7-52) Units/L Alkaline Phosphatase 865 H (34-104) Units/L Albumin 3.4 L (3.5-5.7) g/dL - ABG Interpretation ABG results: PT/INR, D-dimer PT 12.2 Seconds (9.4-12.1) H 05/21/19 16:57 1038 ng/mLFEU (0-500) H 05/21/19 16:57 - Impressions Impressions KUB X-Ray 05/26/19 11:16 IMPRESSION: Moderate colonic stool suggesting constipation. No findings of bowel obstruction. D/ / Brit Valadez MD / Brit Valadez MD Interpreting Provider: Brit Valadez MD Consult Discharge Plan - Plan Referrals: Abi Paulson MD [Primary Care Provider] - 06/05/19 11:00 am
--- NOTE | 2019-05-26 12:35 | Discharge Summary ---
- NOTES TO OUTPATIENT PROVIDER Notes to Outpatient Provider: Needs cardiothoracic and GI follow ups for chest tube/pericardial window and elevated LFTs, respectively Date of Encounter: 05/26/19 Time of Encounter: 12:32 - Discharge Diagnosis (1) Pericardial effusion Priority: Primary Status: Acute Hospital course: Dear Doctors, I recently had the opportunity to care for this patient during their recent hospital stay at [facility]. Isael Reyes is a 68 F w hx CAD s/p CABG 04/2019, HTN, HLD, COPD, hypothyroidism, GERD, fibro, anx/dep, who presented at time of admission with atypical chest pain radiating into b/l shoulders and neck. In the ED, her ECG showed TWI in inferolateral leads. Pt admitted for concern of ACS/NSTEMI, and cardiology consulted. In the hospital, pt underwent TTE which revealed a large posterior pericardial effusion and RV chamber collapse, concerning for tamponade. Cardiothoracic surgery consulted. Pt underwent VATS and pericardial windown 05/[address] Zamudio, which steadily improved and tube removed on 05/25. Hospital course c/b transaminitis felt due to transient hypotension which began to improve with time. Pt also constipated from opioids used for pain control, which was relieved w decreasing opioids and giving bowel regimen. Patient will follow up with CT Surg and GI. Dx: post-CABG pericarditis and pericardial effusion leading to tamponade, transaminitis Pertinent tests/consults: VATS and pericardial window 05/22, CT abdomen unremarkable Follow up: PCP 1 week, CT Surg 1-2 weeks, GI 1-2 weeks Tests pending: none Med changes: - new miralax 17g daily - stop iron supplementation for now while constipated - stop lisinopril and hctz Mental status: awake, fully oriented Code status: Television Announcer spent on discharge: 35 minutes It has been my pleasure participating in this patient's care. Please contact me with any questions or concerns regarding their hospital stay. Sincerely, Kirit Ivy MD - Discharge Medications Prescriptions: New Polyethylene Glycol 3350 [MiraLAX] 17 gm PO DAILY #30 powd.pack Continued Carvedilol 3.125 mg PO BID Zoledronic Acid (Reclast) [Reclast Premix 5 MG/100 ML] 5 mg IV [id number] Diclofenac Sodium [Voltaren] 1 appl TP QID PRN PRN Reason: Pain Aspirin [Lo-Dose Aspirin EC] 81 mg PO DAILY Calcium Carbonate/Vitamin D3 [Calcium 500-Vit D3 200 Caplet] 1 each PO DAILY Escitalopram [Lexapro] 20 mg PO DAILY Acetaminophen [Tylenol] 1,000 mg PO Q6HR PRN #0 PRN Reason: Pain Discontinued Pnv No.122/Iron/Folic Acid [ Multi Tablet] 1 each PO DAILY Ferrous Sulfate 325 mg PO DAILY@0630 #30 tablet hydroCHLOROthiazide [Hydrochlorothiazide] 12.5 mg PO DAILY tablet Cyanocobalamin (B-12) [Vitamin B12] 1,000 mcg PO DAILY #30 tablet Ascorbic Acid [Vitamin C] 500 mg PO DAILY@0630 #30 tablet Lisinopril [Zestril] 20 mg PO DAILY tablet Home Medications: Carvedilol 3.125 mg PO BID 10/02/17 [History] Aspirin [Lo-Dose Aspirin EC] 81 mg PO DAILY 04/10/19 [History] Calcium Carbonate/Vitamin D3 [Calcium 500-Vit D3 200 Caplet] 1 each PO DAILY 04/10/19 [History] Diclofenac Sodium [Voltaren] 1 appl TP QID PRN 04/10/19 [History] Escitalopram [Lexapro] 20 mg PO DAILY 04/10/19 [History] Zoledronic Acid (Reclast) [Reclast Premix 5 MG/100 ML] 5 mg IV [id number] 04/10/19 [History] Acetaminophen [Tylenol] 1,000 mg PO Q6HR PRN #0 04/25/19 [Rx] Polyethylene Glycol 3350 [MiraLAX] 17 gm PO DAILY #30 powd.pack 05/26/19 [Rx] Allergies/Adverse Reactions: Allergy/AdvReac Type Severity Reaction Status Date / Time acetaminophen [From Percocet] AdvReac Nausea Verified 05/22/19 13:26 meperidine [From Demerol] AdvReac Nausea Verified 05/22/19 13:26 oxycodone [From Percocet] AdvReac Nausea Verified 05/22/19 13:26 Date of admission: 05/21/19 14:17 Primary care physician: Abi Paulson MD - Constitutional Vitals: Temp Pulse Resp BP Pulse Ox 98.4 F 64 16 112/62 94 05/26/19 11:47 05/26/19 07:42 05/26/19 11:47 05/26/19 11:47 05/26/19 11:47 Exam: General: NAD, good eye contact, comfortable, pleasant Thoracic: Normal breath sounds b/l, does have coarse bibasilar sounds. R posterolateral chest bandaged but c/d/i Cardio: Normal S1 and S2, regular rhythm and rate Abdomen: Soft, persistent mild TTP RUQ Extremities: Warm, well perfused. DP pulses 2+ b/l. No edema Skin: Intact. No rashes, bruises, or ulcers Neuro: Awake, fully oriented. Speech fluent. - Patient Status Disposition: Home, Self-Care Condition: Fair Functional capacity at discharge: independent ambulation Overall status at discharge: patient is progressing back to baseline - Discharge Instructions Instructions: Polyethylene Glycol 3350 (By mouth), Constipation (DC), Constipa tion (GEN), Pericardial Effusion (DC), Pericardial Effusion (GEN) Follow Up With: Abi Paulson MD [Primary Care Provider] - 06/05/19 11:00 am Krishna Funez MD [Partnered Physician] - (1-2 weeks) Jet Ferrara MD [Partnered Physician] - (1-2 weeks) - Diet and Activity Activity: resume usual activities as tolerated Diet: advance to your usual diet
[2019-05-26] MEDS: Bisacodyl 10 MG RECTAL SUPPOSITORY RC PRN (14:25)
[2019-05-26 16:22] VITALS: BP 109/63
[2019-05-26] MEDS ORDERED: Lactulose Oral Soln 20 GM/30 ML UDC PO SCH (21:00)
== END 2019-05-26 18:40 | disposition home or self-care (01) | DRG 271 ==
LOC: CDU → SUATTDRO 12:17 → 2NNU 16:16
PROVIDERS: ADMIT Internal Medicine; ATTEND Internal Medicine

== ENCOUNTER 2019-06-16 16:04 | Observation (INO) ==
--- NOTE | 2019-06-16 16:23 | Emergency Department Note ---
Disposition Clinical Impression: Coronary artery disease, History of incision of pericardium, History of asthma, Chest pain, History of hyperlipidemia, History of hypertension, Elevated LFTs, Anemia Disposition: Admitted As Inpatient Referrals: Abi Paulson MD [Primary Care Provider] - Forms: ED Satisfaction Letter Time of Disposition: 22:08 General Adult HPI - General Chief complaint: ED Shortness of Breath/Dyspnea Stated complaint: SOB Time Seen by Provider: 06/16/19 16:20 Source: patient, EMS Limitations: no limitations - History of Present Illness HPI Narrative: 68-year-old female reports emergency department complaining of shortness of breath. She is status post CABG and had a secondary pericardial window performed earlier this year. The patient reports she had developed some chest pain and was evaluated at her order expediter office/Dr. Gomez by the [facility]. There was concern that the patient had persistent chest pain and dyspnea so they recommended she come to the emergency department. The patient indicates they feel she needs admitted. The patient denies any trauma. She has had no acute leg swelling or pain coughing up blood or syncope. No abdominal pain vomiting or diarrhea. She describes upper chest pain which radiates into the neck. The patient has had no fever. She is not anticoagulated. There is no history of swelling in the neck or throat pain. No trouble moving the arms or legs independently, no slurred speech facial drooping or headache. No acute back pain. There is no history of prior DVT PE or cancer no history of aneurysm. The patient describes being sleepless. She has been somewhat anxious. Pain Scale: 5 - Related Data Home Medications Medication Instructions Recorded Confirmed Carvedilol 3.125 mg PO BID 10/02/17 05/22/19 Aspirin [Lo-Dose Aspirin EC] 81 mg PO DAILY 04/10/19 05/22/19 Calcium Carbonate/Vitamin D3 1 each PO DAILY 04/10/19 05/22/19 [Calcium 500-Vit D3 200 Caplet] Diclofenac Sodium [Voltaren] 1 appl TP QID PRN 04/10/19 05/22/19 Escitalopram [Lexapro] 20 mg PO DAILY 04/10/19 05/22/19 Zoledronic Acid (Reclast) [Reclast 5 mg IV [id number] 04/10/19 05/22/19 Premix 5 MG/100 ML] Previous Rx's Medication Instructions Recorded Acetaminophen [Tylenol] 1,000 mg PO Q6HR PRN #0 04/25/19 Polyethylene Glycol 3350 [MiraLAX] 17 gm PO DAILY #30 powd.pack 05/26/19 Allergies Allergy/AdvReac Type Severity Reaction Status Date / Time acetaminophen [From Percocet] AdvReac Nausea Verified 06/16/19 16:10 meperidine [From Demerol] AdvReac Nausea Verified 06/16/19 16:10 oxycodone [From Percocet] AdvReac Nausea Verified 06/16/19 16:10 All systems ED: reviewed and negative except as stated. Past Medical History - Past Medical History Medical history: Reports: arthritis, asthma, coronary artery disease, fib romyalgia, GERD, hyperlipidemia, hypertension, thyroid disease, other Surgical history: Reports: appendectomy, cholecystectomy, coronary bypass (CABG), knee replacement (Right total knee replacement), other (Tubal ligation, right hip ORIF, right knee arthroscopy) Psychiatric history: Reports: depression OPERATIONS TRAINER history: Reports: bilateral tubal ligation - Social History Smoking Status: Former smoker Smokeless Tobacco Status: No Alcohol use: Reports: none Drug use: Reports: none Physical Exam - General Limitations: no limitations General appearance: alert, anxious - Head Head exam: atraumatic, normocephalic, normal inspection - Eye Eye exam: Present: normal appearance, PERRL, EOMI - ENT ENT exam: normal exam, normal oropharynx, mucous membranes moist, TM's normal bilaterally, normal external ear exam - Neck Neck exam: Present: normal inspection, full ROM, trachea midline. Absent: tenderness - Chest Chest inspection: Present: symmetric chest wall rise. Absent: tenderness - Respiratory Respiratory exam: Present: normal lung sounds bilaterally. Absent: respiratory distress, accessory muscle use, prolonged expiratory phase - Cardiovascular Cardiovascular exam: Present: regular rate, normal rhythm, normal heart sounds - Abdominal Exam Abdominal exam: Present: soft, Non-Tender, normal bowel sounds. Absent: tenderness, distention, guarding, rebound, rigidity - Extremities Exam Extremities exam: Present: normal inspection, full ROM, normal capillary refill. Absent: tenderness, pedal edema, joint swelling, calf tenderness - Expanded Lower Extremity Exam Lower leg exam: Absent: Homans' sign - Back Exam Back exam: Present: normal inspection. Absent: tenderness, CVA tenderness (R), CVA tenderness (L), vertebral tenderness - Neurological Exam Neurological exam: Present: alert, oriented X3, CN II-XII intact. Absent: motor sensory deficit - Psychiatric Psychiatric exam: Present: anxious - Skin Skin exam: Present: warm, dry, intact, normal color Course Vital Signs Temperature 98.4 F 06/16/19 16:10 Pulse Rate 75 06/16/19 16:10 Respiratory Rate 19 06/16/19 16:10 Blood Pressure 149/129 06/16/19 16:10 O2 Sat by Pulse Oximetry 100 06/16/19 16:10 Temperature 98.4 F 06/16/19 16:10 Pulse Rate 85 06/16/19 20:10 Respiratory Rate 20 06/16/19 20:10 Blood Pressure 107/67 06/16/19 20:10 O2 Sat by Pulse Oximetry 98 06/16/19 20:10 Oxygen Delivery Oxygen Delivery Nasal Cannula Medical Decision Making - MDM Narrative Medical decision making narrative: The patient complains of chest pain in the upper chest radiating to the neck. Sometimes associated with breathing or movement. She has a known history of coronary disease status post CABG with recent pericardial window for pericardial effusion. There is no history of leg swelling or pain acutely, no coughing up blood or syncope abdominal pain vomiting or diarrhea. Initial studies reveal an EKG that is nonacute, laboratory studies show elevated transaminases consistent with prior history. Initial troponin negative. Chronic anemia noted. Chest x- ray no acute disease. CT chest reveals a pleural effusion with no evidence of kirti pneumonitis. The patient's white count is normal lactate negative, she is not tachycardic and does not appear to meet sepsis criteria. Clinically she appeared to be somewhat anxious Ativan was given. She persistently complained of pain. Aspirin ordered as well as oxycodone and Phenergan. The patient was evaluated at her order expediter's office today and she was sent to the ED for evaluation, she feels she needs admitted to the hospital and does not feel comfortable being discharged. Based on her age, multiple vascular comorbidities with recent cardiothoracic surgeries, and persistent chest pain, I thought it would be appropriate to admit the patient for observation. She is highly ag reeable. I discussed the case with the hospitalist on-call who has accepted the patient to his care. A second troponin level has been ordered and is pending. - Lab Data Lab results reviewed: Yes I reviewed the patient's lab results. Result diagrams: 06/16/19 16:45 06/16/19 16:45 Lab Results 06/16/19 06/16/19 06/16/19 Range/Units 16:45 16:45 16:45 WBC 5.4 (4.3-11.1) K/mcL RBC 4.06 (3.82-4.97) M/mcL Hgb 10.8 L (11.5-15.4) g/dL Hct 35.0 L (35.3-44.9) % MCV 86.2 (83.0-100.0) fL MCH 26.6 L (28.0-33.3) pg MCHC 30.9 L (31.6-35.5) g/dL RDW 19.5 H (11.5-14.5) % Plt Count 255 (140-400) K/mcL MPV 9.8 (9.4-12.4) fL Immature Gran % 0.4 (0-4) % Seg Neutrophils % 60.9 % Lymphocytes % 25.6 % Monocytes % 7.8 % Eosinophils % 4.6 % Basophils % 0.7 % Neutrophils # 3.3 (1.6-8.9) K/mcL Lymphocytes # 1.4 (0.6-4.6) K/mcL Monocytes # 0.4 (0.0-1.3) K/mcL Eosinophils # 0.3 (0.0-0.6) K/mcL Basophils # 0.0 (0.0-0.2) K/mcL PT 10.8 (9.4-12.1) Seconds INR 1.0 APTT 36.0 (26.0-36.0) Seconds Sodium 138 (136-145) mEq/L Potassium 4.0 (3.5-5.1) mEq/L Chloride 103 (98-107) mEq/L Carbon Dioxide 27 (23-29) mEq/L BUN 16 (8-23) mg/dL Creatinine 0.79 (0.60-1.20) mg/dL Est GFR ( Amer) > 60 (> 60) Est GFR (Non-Af Amer) > 60 (> 60) BUN/Creatinine Ratio 20 (6-26) Glucose 97 (70-105) mg/dL Calculated Osmolality 287 (280-300) Lactic Acid (0.5-2.2) mmol/L Calcium 9.2 (8.6-10.3) mg/dL Total Bilirubin 0.6 (0.3-1.0) mg/dL Direct Bilirubin 0.1 (0.0-0.2) mg/dL Indirect Bilirubin 0.5 (0.0-1.2) mg/dL AST 122 H (13-39) Units/L ALT 145 H (7-52) Units/L Alkaline Phosphatase 521 H (34-104) Units/L Troponin I < 0.03 (< 0.04) ng/mL C-Reactive Protein 22 H (Less than 10) mg/L B-Natriuretic Peptide (Less than 100) pg/mL Serum Total Protein 6.7 (6.4-8.9) g/dL Albumin 3.9 (3.5-5.7) g/dL Globulin 2.8 (2.4-3.5) g/dL Albumin/Globulin Ratio 1.4 (1.1-2.2) 06/16/19 06/16/19 Range/Units 16:45 16:45 WBC (4.3-11.1) K/mcL RBC (3.82-4.97) M/mcL Hgb (11.5-15.4) g/dL Hct (35.3-44.9) % MCV (83.0-100.0) fL MCH (28.0-33.3) pg MCHC (31.6-35.5) g/dL RDW (11.5-14.5) % Plt Count (140-400) K/mcL MPV (9.4-12.4) fL Immature Gran % (0-4) % Seg Neutrophils % % Lymphocytes % % Monocytes % % Eosinophils % % Basophils % % Neutrophils # (1.6-8.9) K/mcL Lymphocytes # (0.6-4.6) K/mcL Monocytes # (0.0-1.3) K/mcL Eosinophils # (0.0-0.6) K/mcL Basophils # (0.0-0.2) K/mcL PT (9.4-12.1) Seconds INR APTT (26.0-36.0) Seconds Sodium (136-145) mEq/L Potassium (3.5-5.1) mEq/L Chloride (98-107) mEq/L Carbon Dioxide (23-29) mEq/L BUN (8-23) mg/dL Creatinine (0.60-1.20) mg/dL Est GFR ( Amer) (> 60) Est GFR (Non-Af Amer) (> 60) BUN/Creatinine Ratio (6-26) Glucose (70-105) mg/dL Calculated Osmolality (280-300) Lactic Acid 1.2 (0.5-2.2) mmol/L Calcium (8.6-10.3) mg/dL Total Bilirubin (0.3-1.0) mg/dL Direct Bilirubin (0.0-0.2) mg/dL Indirect Bilirubin (0.0-1.2) mg/dL AST (13-39) Units/L ALT (7-52) Units/L Alkaline Phosphatase (34-104) Units/L Troponin I (< 0.04) ng/mL C-Reactive Protein (Less than 10) mg/L B-Natriuretic Peptide 24 (Less than 100) pg/mL Serum Total Protein (6.4-8.9) g/dL Albumin (3.5-5.7) g/dL Globulin (2.4-3.5) g/dL Albumin/Globulin Ratio (1.1-2.2) - Radiology Data Radiology results reviewed: Yes I reviewed the patient's radiology results.
[2019-06-16 17:04] LABS: Basophils % 0.7 %; Eosinophils # 0.3 K/mcL (0.0-0.6); Eosinophils % 4.6 %; Hemoglobin 10.8 g/dL (11.5-15.4); Immature Granulocytes % 0.4 % (0-4); Lymphocytes # 1.4 K/mcL (0.6-4.6); Lymphocytes % 25.6 %; Mean Corpuscular HGB Conc 30.9 g/dL (31.6-35.5); Mean Corpuscular Hemoglobin 26.6 pg (28.0-33.3); Mean Corpuscular Volume 86.2 fL (83.0-100.0); Mean Platelet Volume 9.8 fL (9.4-12.4); Monocytes # 0.4 K/mcL (0.0-1.3); Monocytes % 7.8 %; Neutrophils # 3.3 K/mcL (1.6-8.9); Platelet Count 255 K/mcL (140-400); Red Blood Count 4.06 M/mcL (3.82-4.97); Red Cell Distribution Width 19.5 % (11.5-14.5); Segmented Neutrophils % 60.9 %; White Blood Count 5.4 K/mcL (4.3-11.1)
[2019-06-16] MEDS ORDERED: *HR* LORazepam 2 MG/ML VIAL IVP ONE (17:04)
[2019-06-16 17:08] LABS: Prothrombin Time 10.8 Seconds (9.4-12.1)
[2019-06-16 17:27] LABS: Alanine Aminotransferase 145 Units/L (7-52); Albumin 3.9 g/dL (3.5-5.7); Albumin/Globulin Ratio 1.4 (1.1-2.2); Alkaline Phosphatase 521 Units/L (34-104); Aspartate Amino Transferase 122 Units/L (13-39); BUN/Creatinine Ratio 20 (6-26); Bilirubin,Direct 0.1 mg/dL (0.0-0.2); Bilirubin,Indirect 0.5 mg/dL (0.0-1.2); Bilirubin,Total 0.6 mg/dL (0.3-1.0); Blood Urea Nitrogen 16 mg/dL (8-23); C-Reactive Protein 22 mg/L (Less than 10); Calcium 9.2 mg/dL (8.6-10.3); Carbon Dioxide 27 mEq/L (23-29); Chloride 103 mEq/L (98-107); Globulin 2.8 g/dL (2.4-3.5); Glucose 97 mg/dL (70-105); Osmolality,Calculated 287 (280-300); Sodium 138 mEq/L (136-145); Total Protein 6.7 g/dL (6.4-8.9); Troponin I < 0.03 ng/mL (< 0.04); eGFR For African Americans > 60 (> 60); eGFR For Non-African Americans > 60 (> 60)
[2019-06-16] MEDS ORDERED: Isovue-370 500 ML BOTTLE IVP ONE (17:57)
[2019-06-16] MEDS ORDERED: *HR* OxyCODONE Immed Rel 5 MG TABLET PO ONE (22:00)
[2019-06-17] MEDS ORDERED: Naloxone 0.4 MG/ML INJ IVP PRN (02:54)
--- NOTE | 2019-06-17 03:14 | Internal Med History&Physical ---
Date of Encounter: 06/17/19 Time of Encounter: 01:45 Internal Medicine - H&P: HPI Chief complaint: Chest pain Admitted From: Emergency Dept Plans for Post Hospital Care: Home History of present illness: Ms. Reyes is a 68 year old female Patient presented to the emergency department with chest pain that radiated to her neck. She states that when she woke up in the morning she had a soreness in her chest from collarbone to collarbone and then to her sternum. She went about her day and the pain did not improve. She had a routine appointment scheduled with her low pressure boiler operator in the afternoon and on the way there after talking with a friend she had an episode of squeezing chest pain that was reminiscent of her pr evious chest pain that she experienced when she was having cardiac tamponade and pericarditis. She was transported to the emergency department for further management. Emergency department patient's initial vital signs were within normal limits. She did have an elevated blood pressure 149/129 but on repeat it was 131/72. She had 100% oxygen saturation on 2 L. CBC: Hemoglobin 10.8, stable from previous INR 1.0 BMP within normal limits Liver function tests: Elevated AST, ALT and alkaline phosphatase. Initial troponin undetectable 2 BNP 24 Lactic acid 1.2 Chest x-ray no acute cardiopulmonary disease CT angiogram: No evidence of pulmonary embolism, small right pleural effusion with dependent right lower lobe airspace disease likely atelectasis. Small hiatal hernia EKG: Normal Sinus rhythm, heart rate 73, QTC 478. No ischemic changes In the emergency department, patient received 1 mg of Ativan, oxycodone and Phenergan. She was admitted to the hospital for further observation. Upon my assessment, patient is resting comfortably in the hospital bed in no acute distress. She denies chest pain, nausea, vomiting, diarrhea and constipation. She has right upper quadrant abdominal pain, that is improved since her initial presentation. There is no worse with palpation. Currently he r chest pain has nearly resolved, and she is no longer feeling short of breath. She is a full code. Past Med Surg Social Fam HX - Past Medical History Medical history: arthritis, asthma, coronary artery disease, fibromyalgia, GERD, hyperlipidemia, hypertension, thyroid disease, other Additional medical history: Thyroid cysts Psychiatric history: anxiety, depression - Past Surgical History Surgical History: appendectomy, cholecystectomy, coronary bypass (CABG), knee replacement (Right total knee replacement), other (Tubal ligation, right hip ORIF, right knee arthroscopy) Additional surgical history: Tubal, pericardial window, gastric bypass - Social History Smoking Status: Former smoker Smokeless Tobacco Status: No Alcohol use: none Drug use: none - Family History Mother Hx Family Cancer: Yes Hx Family Neuromuscular Disorders: Yes (parkinsons) Father Hx Family Cardiac Disorders: Yes (heart dx) Hx Family Neurologic Disorders: Yes (Dementia) Internal Medicine - H&P: Meds Carvedilol 3.125 mg PO BID 10/02/17 [History] Aspirin [Lo-Dose Aspirin EC] 81 mg PO DAILY 04/10/19 [History] Calcium Carbonate/Vitamin D3 [Calcium 500-Vit D3 200 Caplet] 1 each PO DAILY 04/10/19 [History] Diclofenac Sodium [Voltaren] 1 appl TP QID PRN 04/10/19 [History] Escitalopram [Lexapro] 20 mg PO DAILY 04/10/19 [History] Zoledronic Acid (Reclast) [Reclast Premix 5 MG/100 ML] 5 mg IV [id number] 04/10/19 [History] Hydrochlorothiazide PO DAILY 06/16/19 [History] Lisinopril PO DAILY 06/16/19 [History] Allergy/AdvReac Type Severity Reaction Status Date / Time acetaminophen [From Percocet] AdvReac Nausea Verified 06/16/19 16:10 meperidine [From Demerol] AdvReac Nausea Verified 06/16/19 16:10 oxycodone [From Percocet] AdvReac Nausea Verified 06/16/19 16:10 All Systems PM: A 10-system review of systems was performed and is negative for pertinent findings except as documented above in the HPI. - Constitutional Vitals: Temp Pulse Resp BP Pulse Ox 98.6 F 84 18 103/68 2 06/16/19 23:18 06/16/19 23:18 06/16/19 23:18 06/16/19 23:18 06/16/19 23:32 General appearance: Present: cooperative, A&O X 3, pleasant, no acute distress, answers questions appropriately Exam: - - Head Head exam: Present: normal inspection - Eye Eye exam: Present: EOMI, normal appearance - Respiratory Respiratory exam: Present: CTAB. Absent: rales, respiratory distress, rhonchi, wheezes - Cardiovascular Cardiovascular exam: Present: RRR. Absent: diastolic murmur, systolic murmur - GI/Abdominal GI/Abdominal exam: Present: normal bowel sounds, soft. Absent: tenderness - Extremities Exam Extremities exam: Present: warm, radial pulses palpable and symmetrical. Absent: calf tenderness, pedal edema, tenderness - Neurological Exam Neurological exam: Present: no focal deficits, strengths equal and symetr throughout. Absent: motor sensory deficit, facial droop, speech deficit - Skin Skin exam: Present: dry, normal color, warm Internal Med - H&P Results - Labs CBC & Chem 7: 06/16/19 16:45 06/16/19 16:45 Labs: Short CBC 06/16/19 Range/Units 16:45 WBC 5.4 (4.3-11.1) K/mcL Hgb 10.8 L (11.5-15.4) g/dL Hct 35.0 L (35.3-44.9) % Plt Count 255 (140-400) K/mcL Neutrophils # 3.3 (1.6-8.9) K/mcL BMP 06/16/19 16:45 Sodium 138 Potassium 4.0 Chloride 103 Carbon Dioxide 27 BUN 16 Creatinine 0.79 Glucose 97 Calcium 9.2 Cardiac Enzymes 06/16/19 06/16/19 Range/Units 16:45 21:46 Troponin I < 0.03 < 0.03 (< 0.04) ng/mL Liver Function 06/16/19 Range/Units 16:45 Total Bilirubin 0.6 (0.3-1.0) mg/dL Direct Bilirubin 0.1 (0.0-0.2) mg/dL AST 122 H (13-39) Units/L ALT 145 H (7-52) Units/L Alkaline Phosphatase 521 H (34-104) Units/L Albumin 3.9 (3.5-5.7) g/dL - Impressions ITS Impressions Chest X-Ray 06/16/19 16:21 IMPRESSION: No acute cardiopulmonary disease. D/ / Yesi Warren MD / Yesi Warren MD Interpreting Provider: Yesi Warren MD Chest CTA 06/16/19 17:57 IMPRESSION: No evidence pulmonary embolism. A small right pleural effusion with dependent right lower lobe airspace disease, likely atelectasis. Small hiatal hernia. D/ / Yelitza Pacheco Cha, MD / Yelitza Pacheco Cha, MD Interpreting Provider: Yelitza Pacheco Cha, MD - Assessment and Plan (1) Chest pain Current Visit: Yes Status: Acute Assessment and plan: History of CABG, and pericardial window surgery about a month ago. Currently chest pain resolved. EKG nonischemic, initial troponins are undetectable 2. Chest x-ray and CT angiogram negative for acute abnormalities. As patient recently had a CABG procedure performed 2 months ago then had her carditis status post pericardial window one month ago she was admitted for observation. She was following up with her low pressure boiler operator on the day of her presentation. Continue to trend troponin Cardiac telemetry Echocardiogram in the morning Cardiology consult Qualifiers: Chest pain type: unspecified Qualified Code(s): R07.9 - Chest pain, unspecified (2) Elevated LFTs Current Visit: Yes Status: Acute Assessment and plan: Patient had elevated LFTs during her previous admission but had resolved with her lab work performed 1 week ago. She now has another acute increase in her AST, ALT and alkaline phosphatase. Total bilirubin is normal and INR is normal as well. Platelets are also within normal limits. She also has right upper quadrant abdominal pain similar to her previous presentation. She was seen by GI at that time. It was felt that it may be related to ischemic hepatitis. CT angiogram did not show acute abnormalities. Right upper quadrant ultrasound Repeat labs in the morning (3) History of incision of pericardium Current Visit: Yes Status: Acute Assessment and plan: Echocardiogram in the morning Continue to monitor (4) DVT prophylaxis Current Visit: No Status: Acute Assessment and plan: SCDs - Time Spent With Patient Total time spent is greater than 50% in coordination of care (as documented) at patient's floor/unit and/or counseling patient: Greater than 35 minutes
[2019-06-17] MEDS ORDERED: Diclofenac Sodium [Voltaren] TP PRN (03:51)
[2019-06-17 07:47] LABS: Hematocrit 34.9 % (35.3-44.9); Hemoglobin 10.8 g/dL (11.5-15.4); Mean Corpuscular HGB Conc 30.9 g/dL (31.6-35.5); Mean Corpuscular Hemoglobin 26.6 pg (28.0-33.3); Mean Platelet Volume 10.2 fL (9.4-12.4); Platelet Count 226 K/mcL (140-400); Red Blood Count 4.06 M/mcL (3.82-4.97); Red Cell Distribution Width 19.3 % (11.5-14.5); White Blood Count 5.9 K/mcL (4.3-11.1)
[2019-06-17 08:06] LABS: Alanine Aminotransferase 104 Units/L (7-52); Albumin 3.7 g/dL (3.5-5.7); Albumin/Globulin Ratio 1.2 (1.1-2.2); Alkaline Phosphatase 520 Units/L (34-104); Aspartate Amino Transferase 67 Units/L (13-39); BUN/Creatinine Ratio 19 (6-26); Bilirubin,Total 0.8 mg/dL (0.3-1.0); Blood Urea Nitrogen 15 mg/dL (8-23); Calcium 9.4 mg/dL (8.6-10.3); Carbon Dioxide 28 mEq/L (23-29); Chloride 101 mEq/L (98-107); Globulin 3.1 g/dL (2.4-3.5); Glucose 104 mg/dL (70-105); Osmolality,Calculated 291 (280-300); Potassium 4.6 mEq/L (3.5-5.1); Sodium 140 mEq/L (136-145); Total Protein 6.8 g/dL (6.4-8.9); Troponin I < 0.03 ng/mL (< 0.04); eGFR For African Americans > 60 (> 60); eGFR For Non-African Americans > 60 (> 60)
--- NOTE | 2019-06-17 08:16 | Internal Med Progress Note ---
<Ronnie Bundy N - Last Filed: 06/17/19 16:38> Hospitalist Progress Note - Encounter Date of Encounter: 06/17/19 Time of Encounter: 08:16 - Subjective Interval History: Patient states she is feeling somewhat better today, but continues to have some chest discomfort described as pain over her clavicles. Patient states this pain is similar to past experiences with cardiac And nod and pericarditis one month prior. Patient denies shortness of breath, nausea, vomiting, abdominal pain, fever, or chills. - Exam Vitals: Temp Pulse Resp BP Pulse Ox 99.1 F 79 15 106/63 96 06/17/19 07:29 06/17/19 07:29 06/17/19 07:29 06/17/19 07:29 06/17/19 07:29 Exam: General appearance: Present: cooperative, A&O X 3, pleasant, no acute distress, answers questions appropriately Head exam: normal inspection. Normocephalic Eye exam: EOMI, normal appearance Respiratory exam: CTAB. Absent: rales, respiratory distress, rhonchi, wheezes Cardiovascular exam: RRR. Absent: diastolic murmur, systolic murmur GI/Abdominal exam: normal bowel sounds, soft. Absent: tenderness Extremities exam: warm, radial pulses palpable and symmetrical. Absent: calf tenderness, pedal edema, tenderness Neurological exam: No focal deficits, strengths equal and symetr throughout. Absent: motor sensory deficit, facial droop, speech deficit Skin exam: Present: dry, normal color, warm - Assessment and Plan (1) Chest pain Current Visit: Yes Status: Acute Assessment and Plan: History of CABG, and pericardial window surgery about a month ago. Currently chest pain resolved. EKG nonischemic, initial troponins are undetectable 2. Chest x-ray and CT angiogram negative for acute abnormalities. As patient recently had a CABG procedure performed 2 months ago then had her carditis status post pericardial window one month ago she was admitted for o bservation. x4 Negative Troponins Cardiac telemetry Chest CT shows a small right pleural effusion -Echo with EF of 60-65% -Repeat CXR with no evidence of pleural effusion -Cardiology consult, will follow recommendations (2) Elevated LFTs Current Visit: Yes Status: Acute Assessment and Plan: Elevated LFTs on admission trended down on repeat, but remain high Total bilirubin is normal and INR is normal as well. Liver US showing Dilated common bile duct measuring 1 cm. -MRCP order -GI consulted, will follow recommendations (3) History of incision of pericardium Current Visit: Yes Status: Acute Assessment and Plan: Pt had pericardial window procedure status post CABG on May 22. Echo showed no evidence of pericardial effusion on Echo performed 06/17 -Cardiology consulted, will follow recommendations. -Continue to monitor (4) Depression Current Visit: Yes Status: Acute Assessment and Plan: pt taking home lexapro for treatment. DVT Prophylaxis: Intermittent Pneumatic Compression devices - Time Spent with Patient Total time spent is greater than 50% in coordination of care (as documented) at patient's floor/unit and/or counseling patient: Internal Medicine: Result - Labs CBC & Chem 7: 06/17/19 07:28 06/17/19 07:28 Labs: Short CBC 06/16/19 06/17/19 Range/Units 16:45 07:28 WBC 5.4 5.9 (4.3-11.1) K/mcL Hgb 10.8 L 10.8 L (11.5-15.4) g/dL Hct 35.0 L 34.9 L (35.3-44.9) % Plt Count 255 226 (140-400) K/mcL Neutrophils # 3.3 (1.6-8.9) K/mcL BMP 06/16/19 06/17/19 16:45 07:28 Sodium 138 140 Potassium 4.0 4.6 Chloride 103 101 Carbon Dioxide 27 28 BUN 16 15 Creatinine 0.79 0.79 Glucose 97 104 Calcium 9.2 9.4 Cardiac Enzymes 06/16/19 06/16/19 06/17/19 Range/Units 16:45 21:46 07:28 Troponin I < 0.03 < 0.03 < 0.03 (< 0.04) ng/mL Liver Function 06/16/19 06/17/19 Range/Units 16:45 07:28 Total Bilirubin 0.6 0.8 (0.3-1.0) mg/dL Direct Bilirubin 0.1 (0.0-0.2) mg/dL AST 122 H 67 H (13-39) Units/L ALT 145 H 104 H (7-52) Units/L Alkaline Phosphatase 521 H 520 H (34-104) Units/L Albumin 3.9 3.7 (3.5-5.7) g/dL - ABG Interpretation ABG results: PT/INR, D-dimer PT 10.8 Seconds (9.4-12.1) 06/16/19 16:45 - Impressions Impressions Chest X-Ray 06/16/19 16:21 IMPRESSION: No acute cardiopulmonary disease. D/ / Yesi Warren MD / Yesi Warren MD Interpreting Provider: Yesi Warren MD Chest CTA 06/16/19 17:57 IMPRESSION: No evidence pulmonary embolism. A small right pleural effusion with dependent right lower lobe airspace disease, likely atelectasis. Small hiatal hernia. D/ / Yelitza Pacheco Cha, MD / Yelitza Pacheco Cha, MD Interpreting Provider: Yelitza Pacheco Cha, MD - VTE Documentation of Mechanical Device: Intermittent pneumatic compression device Consult Discharge Plan - Plan Referrals: Abi Paulson MD [Primary Care Provider] - <Arslan Teryr - Last Filed: 06/17/19 18:39> Hospitalist Progress Note - Encounter Date of Encounter: 06/17/19 - Exam Vitals: Temp Pulse Resp BP Pulse Ox 99.4 F 79 16 125/73 79 06/17/19 16:37 06/17/19 16:37 06/17/19 16:37 06/17/19 16:37 06/17/19 16:37 - Assessment and Plan (1) DVT prophylaxis Current Visit: No Status: Acute (2) Elevated LFTs Current Visit: Yes Status: Acute (3) History of incision of pericardium Current Visit: Yes Status: Acute (4) Chest pain Current Visit: Yes Status: Acute - Time Spent with Patient Total time spent is greater than 50% in coordination of care (as documented) at patient's floor/unit and/or counseling patient: Internal Medicine: Result - Labs CBC & Chem 7: 06/17/19 07:28 06/17/19 07:28 Labs: Short CBC 06/17/19 Range/Units 07:28 WBC 5.9 (4.3-11.1) K/mcL Hgb 10.8 L (11.5-15.4) g/dL Hct 34.9 L (35.3-44.9) % Plt Count 226 (140-400) K/mcL BMP 06/17/19 07:28 Sodium 140 Potassium 4.6 Chloride 101 Carbon Dioxide 28 BUN 15 Creatinine 0.79 Glucose 104 Calcium 9.4 Cardiac Enzymes 06/16/19 06/17/19 06/17/19 Range/Units 21:46 07:28 11:05 Troponin I < 0.03 < 0.03 < 0.03 (< 0.04) ng/mL Liver Function 06/17/19 Range/Units 07:28 Total Bilirubin 0.8 (0.3-1.0) mg/dL AST 67 H (13-39) Units/L ALT 104 H (7-52) Units/L Alkaline Phosphatase 520 H (34-104) Units/L Albumin 3.7 (3.5-5.7) g/dL - ABG Interpretation ABG results: PT/INR, D-dimer PT 10.8 Seconds (9.4-12.1) 06/16/19 16:45 - Impressions Impressions Chest CTA 06/16/19 17:57 IMPRESSION: No evidence pulmonary embolism. A small right pleural effusion with dependent right lower lobe airspace disease, likely atelectasis. Small hiatal hernia. D/ / Yelitza Pacheco Cha, MD / Yelitza Pacheco Cha, MD Interpreting Provider: Yelitza Pacheco Cha, MD Echocardiogram 06/17/19 03:29 Impressions: LVEF 60-65%. Normal LV chamber size and function. Mild left ventricular diastolic dysfunction. Atypical septal motion consistent with post-operative status. Normal right ventricular structure and function. Mild concentric left ventricular hypertrophy. Mild tricuspid regurgitation. No pulmonary hypertension. Left Ventricular Wall Motion: Rest Echo Findings All wall segments showed normal motion. Findings: Study Quality * Technically adequate exam. ECG Findings * Normal sinus rhythm. Left Ventricle * LVEF 60-65%. * Normal LV chamber size and function. * Mild left ventricular diastolic dysfunction. * Atypical septal motion consistent with post-operative status. * Mild concentric left ventricular hypertrophy. Right Ventricle * Normal right ventricular structure and function. Left Atrium * Mildly dilated left atrium. Interatrial Septum * Interatrial septum not well evaluated. Aortic Valve * Aortic valve not well visualized. * No aortic regurgitation. * No aortic stenosis. Mitral Valve * Mildly thickened mitral valve leaflets. * No mitral regurgitation. * No mitral stenosis. Tricuspid Valve * Normal tricuspid valve structure. * Mild tricuspid regurgitation. * No pulmonary hypertension. Pulmonic Valve * Pulmonic valve is not well visualized. * No pulmonic regurgitation. Aorta * Normally sized aortic root. Pericardium * There is a trivial pericardial effusion present. IVC * Normal IVC dimensions and inspiratory collapse. Pulmonary Artery * Pulmonary artery not well visualized. Liver Ultrasound 06/17/19 09:00 IMPRESSION: Dilated common bile duct measuring 1 cm in diameter possibly related to cholecystectomy status. Recommend correlation with LFTs. If LFTs are abnormal, MRCP could be considered. Otherwise unremarkable right upper quadrant ultrasound. D/ / 06/17/2019 09:31:45 Juan Clemens MD / dom Interpreting Provider: Juan Clemens MD Chest X-Ray 06/17/19 11:22 IMPRESSION: Lungs appear clear. D/ / iMhai Gonzalez / Mihai Gonzalez Interpreting Provider: Mihai Gonzalez - Attending Attestation I have seen and independently assessed this patient and I agree with plan as documented Plan Chest pain s/p CABG in april 2019 and pericardial window in may 20. Unclear etiology could be related to pericarditis. Repeat 2 D echo. Start on aspirin and colchicine Transaminitis with dilated common bile duct. Obtain MRCP. GI consult. IV fluids <Ronnie Bundy - Last Filed: 06/17/19 16:38> (1) Chest pain Qualifiers: Chest pain type: unspecified Qualified Code(s): R07.9 - Chest pain, unspecified <Arslan Terry - Last Filed: 06/17/19 18:39> (4) Chest pain Qualifiers: Chest pain type: unspecified Qualified Code(s): R07.9 - Chest pain, unspecified
[2019-06-17] MEDS ORDERED: Aspirin Enteric Coated 81 MG Tablet PO SCH (09:00)
--- NOTE | 2019-06-17 09:12 | Electrocardiograph Report ---
[place] [id number] Test Date: 2019-06-16 Pat Name: Isael Reyes Department: [id number] Room: [facility] Gender: F Cadd Drafter: : 1950 Requested By: Yung Alexandre Order Number: [id number] Reading MD: Peggy Silva Measurements Intervals [place] Rate: 73 P: 56 DE: 148 QRS: 44 QRSD: 80 T: 86 QT: 433 QTc: 478 Interpretive Statements Sinus rhythm Low voltage, precordial leads Nonspecific ST-T abnormalities Electronically Signed On 06-17-2019 9:11:40 EDT by Peggy Silva
--- NOTE | 2019-06-17 12:09 | Cardiology Consult Note ---
<Tanya Driscoll - Last Filed: 06/17/19 12:37> Date of Encounter: 06/17/19 Time of Encounter: 09:45 Assessment and Plan (1) Dyspnea Current Visit: Yes Status: Acute Per cardiology: -Patient reported increased shortness of breath, reports symptom improvement today. -Chest x-ray with no acute process. -Chest CT with small right pleural effusion. -05/2019 TTE There is a moderate to large circumferential pericardial effusion present largest along the posterior wall of the LV. Echocardiographic signs of impending tamponade (RA and LA chamber collapse, possible RV early diastolic chamber collapse). Pateint underwent pericardial window. -Repeat TTE pending. -Will repeat chest x-ray. -Further recs pending TTE and chest x-ray. Qualifiers: Dyspnea type: shortness of breath Qualified Code(s): R06.02 - Shortness of breath; R06.00 - Dyspnea, unspecified; R06.01 - Orthopnea (2) Atypical chest pain Current Visit: Yes Status: Acute Per cardiology: -Patient reports atypical, pleuritic chest pain. -ECG with no acute ischemic changes. -Troponins negative x4. -LHC 04/2019 with 70% LM, 70% prox LAD, 25% mid LAD, 25% prox circ, 70% prox RCA, 80% mid RCA. -CABG 04/2019 with [place] to LAD, SVG to OM, SVG to PDA. -TTE pending. -ON asa, Was on BB and statin in outpateint setting. -Further recs pending TTE. Discussion w patient/family: The assessment and plan as outlined above was discussed with the patient who expressed understanding and agreement. All questions were answered. Thank you for involving us in the care of your patient. Please call with any questions. Discussed and reviewed with History of Present Illness Consult date: 06/17/19 Requesting physician: Jet Main Consult reason: chest pain Chief complaint: shortness of breath History of present illness: Ms. Reyes is a 68 year old female with a relevant past medical history of CAD s/p CABG 04/2019, pericardial effusion s/p pericardial window 05/2019, depression, anemia, HLD, hyperthyroidism, asthma, OA, barrets esophagus, duodenal ulcer, elevated LFTs, HTN, GERD, fibromyalgia, gastric bypass, who presented to [facility] with complaints of shortness of breath, and chest pain. Patient was at an outpatient cardiology appt with myself and was noted to be visible dyspnic. Patient was unable to speak due to shortness of breath. Patient had to answer questions by shaking her head due to shortness of breath. Patient had also reported pleuritic chest pain. Patient was recommended for ER evaluation. Patient states symptoms started yesterday morning. Today, patient reports symptoms are improved, however does still have some pleuritic chest pain. Past Med Surg Social Fam HX - Past Medical History Attestation: Yes The following information was validated with the patient. Source: patient Medical history: arthritis, asthma, coronary artery disease, fibromyalgia, GERD, hyperlipidemia, hypertension, thyroid disease, other Additional medical history: Thyroid cysts Psychiatric history: anxiety, depression - Past Surgical History Surgical History: appendectomy, cholecystectomy, coronary bypass (CABG), knee replacement (Right total knee replacement), other (Tubal ligation, right hip ORIF, right knee arthroscopy) Additional surgical history: Tubal, pericardial window, gastric bypass - Social History Smoking Status: Former smoker Smokeless Tobacco Status: No Alcohol use: none Drug use: none - Family History Mother Hx Family Cancer: Yes Hx Family Neuromuscular Disorders: Yes (parkinsons) Father Hx Family Cardiac Disorders: Yes (heart dx) Hx Family Neurologic Disorders: Yes (Dementia) Medications and Allergies Carvedilol 3.125 mg PO BID 10/02/17 [History] Aspirin [Lo-Dose Aspirin EC] 81 mg PO DAILY 04/10/19 [History] Calcium Carbonate/Vitamin D3 [Calcium 500-Vit D3 200 Caplet] 1 each PO DAILY 04/10/19 [History] Escitalopram [Lexapro] 20 mg PO DAILY 04/10/19 [History] Zoledronic Acid (Reclast) [Reclast Premix 5 MG/100 ML] 5 mg IV [id number] 04/10/19 [History] Lisinopril [Zestril] 40 mg PO DAILY 06/16/19 [History] hydroCHLOROthiazide [Hydrochlorothiazide] 25 mg PO DAILY 06/16/19 [History] Cholecalciferol (Vitamin D3) [Optimal D3] 50,000 units PO MO 06/18/19 [History] Ferrous Sulfate 325 mg PO DAILY 06/18/19 [History] Pantoprazole Sodium [Protonix] 40 mg PO DAILY 06/18/19 [History] Allergy/AdvReac Type Severity Reaction Status Date / Time acetaminophen [From Percocet] AdvReac Nausea Verified 06/18/19 08:26 meperidine [From Demerol] AdvReac Nausea Verified 06/18/19 08:26 oxycodone [From Percocet] AdvReac Nausea Verified 06/18/19 08:26 All Systems Review: The remainder of the systems were reviewed and are negative - Cardiovascular Cardiovascular: as per HPI, chest pain at rest, dyspnea at rest, dyspnea on exertion Physical Examination Vital Signs, Last 4 Hours Temp Pulse Resp BP Pulse Ox 06/17/19 10:40 99.0 F 62 16 102/65 98 General: Conversant, Other (Mild conversational dyspnea noted on exam. ) HEENT: Atraumatic, Normocephaly, Mucus Membranes Moist Neck: No JVD, Normal carotid pulses Cardiac: Reg Rate and Rhythm, Normal S1 and S2, No Murmur Lungs: Normal Breath Sounds, No Wheeze, Rales, Rhonchi Neuro: Alert and responsive, No focal deficits noted Abdomen: Soft, Non-Tender Skin: No rashes noted on visualized skin Musculoskeletal: No Chest Wall Tenderness Extremities: No Clubbing, No Cyanosis, No Edema, Normal Pulses Results 06/17/19 07:28 06/17/19 07:28 Lab Results Impressions Chest X-Ray 06/16/19 16:21 IMPRESSION: No acute cardiopulmonary disease. D/ / Yesi Warren MD / Yesi Warren MD Interpreting Provider: Yesi Warren MD Chest CTA 06/16/19 17:57 IMPRESSION: No evidence pulmonary embolism. A small right pleural effusion with dependent right lower lobe airspace disease, likely atelectasis. Small hiatal hernia. D/ / Yelitza Pacheco Cha, MD / Yelitza Pacheco Cha, MD Interpreting Provider: Yelitza Pacheco Cha, MD Liver Ultrasound 06/17/19 09:00 IMPRESSION: Dilated common bile duct measuring 1 cm in diameter possibly related to cholecystectomy status. Recommend correlation with LFTs. If LFTs are abnormal, MRCP could be considered. Otherwise unremarkable right upper quadrant ultrasound. D/ / 06/17/2019 09:31:45 Juan Clemens MD / [email or web address] Interpreting Provider: Juan Clemens MD Active Medications Aspirin (Aspirin Ec) 81 mg PO DAILY NAYELY Stop: 12/17/19 09:01 Last Admin: 06/17/19 11:54 Dose: 81 mg Documented by: Escitalopram Oxalate (Lexapro) 20 mg PO DAILY NAYELY Stop: 12/17/19 09:01 Last Admin: 06/17/19 11:54 Dose: 20 mg Documented by: Naloxone HCl (Narcan) 0.4 mg IVP Q2MPRN PRN PRN Reason: SEE COMMENTS Stop: 12/17/19 02:55 Pharmacy Profile Note (Patient Taking Own Medication) 1 each TP QID PRN PRN Reason: Pain Laboratory Tests 06/16/19 06/16/19 06/16/19 16:45 16:45 21:46 Hgb Creatinine Troponin I < 0.03 < 0.03 B-Natriuretic Peptide 24 06/17/19 06/17/19 06/17/19 07:28 07:28 11:05 Hgb 10.8 L Creatinine 0.79 Troponin I < 0.03 < 0.03 B-Natriuretic Peptide - Imaging and Cardiology Chest Xray: report reviewed Echo: pending, report reviewed Cardiac cath: report reviewed - EKG Interpretation EKG results cardiology: personally reviewed (ECG with SR, HR 73.), other (Telemetry reviewed with average HR previous 12 hours noted to be 84, SR. PVCs, PACs noted.) Consult Discharge Plan - Plan Referrals: Abi Paulson MD [Primary Care Provider] - <LynnSaturday A - Last Filed: 06/18/19 11:18> Date of Encounter: 06/18/19 - Attending Attestation I have personally performed a face to face evaluation on this patient. I have reviewed and agree with the documented findings and care plan as documented by the [employer]. History and Exam by me shows: 68-year-old pleasant female with recent history of pericardial effusion with tamponade status post pericardiotomy presented with pleuritic chest pain and dyspnea. Echo cardiac exam shows trace pericardial effusion. Recommend trial of colchicine 0.6 mg twice a day for 3 months. Repeat chest x-ray to rule out pneumonia. Thanks, Juan Bailey MD [facility] Assessment and Plan Discussion w patient/family: The assessment and plan as outlined above was discussed with the patient and/or family members who expressed understanding and agreement. All questions were answered. Thank you for involving us in the care of your patient. Please call with any questions. History of Present Illness History of present illness: Ms. Reyes is a 68 year old female All Systems Review: The remainder of the systems were reviewed and are negative Physical Examination Vital Signs, Last 4 Hours Temp Pulse Resp BP Pulse Ox 06/18/19 10:49 97.7 F 80 16 111/69 100 06/18/19 07:27 97.5 F L 93 14 104/69 97 Results 06/18/19 00:10 06/18/19 00:10 Lab Results 06/17/19 06/18/19 06/18/19 11:05 00:10 00:10 WBC 5.6 Hgb 10.5 L Hct 34.5 L Plt Count 196 Sodium 136 Potassium 3.7 Chloride 102 Carbon Dioxide 25 BUN 21 Creatinine 0.77 Glucose 231 H Calcium 8.9 Total Bilirubin AST ALT Alkaline Phosphatase Troponin I < 0.03 06/18/19 00:10 WBC Hgb Hct Plt Count Sodium Potassium Chloride Carbon Dioxide BUN Creatinine Glucose Calcium Total Bilirubin 0.5 AST 42 H ALT 77 H Alkaline Phosphatase 424 H Troponin I
[2019-06-17] MEDS: Colchicine 0.6 MG TABLET PO SCH ×2 (12:45→21:37)
[2019-06-17] MEDS ORDERED: *HR* LORazepam 1 MG TABLET PO ONE (13:43)
[2019-06-17] MEDS: traMADol 50 MG TABLET PO PRN (14:08)
[2019-06-17] MEDS: Aspirin 325 MG TABLET PO SCH ×2 (17:52→21:36)
[2019-06-17] MEDS ORDERED: 0.9 % Sodium Chloride 1,000 ML IVC SCH (18:45)
[2019-06-17] MEDS ORDERED: *HR* HYDROcodone/Acet 7.5/325 mg TABLET PO ONE (20:18)
[2019-06-17] MEDS ORDERED: *HR* Promethazine 25 MG/ML VIAL IVP ONE (20:18)
[2019-06-18 01:45] LABS: Hematocrit 34.5 % (35.3-44.9); Hemoglobin 10.5 g/dL (11.5-15.4); Mean Corpuscular HGB Conc 30.4 g/dL (31.6-35.5); Mean Corpuscular Volume 88.7 fL (83.0-100.0); Mean Platelet Volume 10.7 fL (9.4-12.4); Platelet Count 196 K/mcL (140-400); Red Blood Count 3.89 M/mcL (3.82-4.97); Red Cell Distribution Width 19.2 % (11.5-14.5); White Blood Count 5.6 K/mcL (4.3-11.1)
[2019-06-18 02:04] LABS: BUN/Creatinine Ratio 27 (6-26); Blood Urea Nitrogen 21 mg/dL (8-23); Calcium 8.9 mg/dL (8.6-10.3); Carbon Dioxide 25 mEq/L (23-29); Chloride 102 mEq/L (98-107); Glucose 231 mg/dL (70-105); Osmolality,Calculated 292 (280-300); Potassium 3.7 mEq/L (3.5-5.1); Sodium 136 mEq/L (136-145); eGFR For African Americans > 60 (> 60); eGFR For Non-African Americans > 60 (> 60)
[2019-06-18 02:06] LABS: Albumin 3.6 g/dL (3.5-5.7); Albumin/Globulin Ratio 1.3 (1.1-2.2); Bilirubin,Direct 0.1 mg/dL (0.0-0.2); Bilirubin,Indirect 0.4 mg/dL (0.0-1.2); Bilirubin,Total 0.5 mg/dL (0.3-1.0); Globulin 2.7 g/dL (2.4-3.5); Total Protein 6.3 g/dL (6.4-8.9)
[2019-06-18] MEDS ORDERED: Ibuprofen 600 MG TABLET PO ONE (05:15)
[2019-06-18] MEDS: Aspirin 325 MG TABLET PO SCH (05:22)
[2019-06-18] MEDS: Colchicine 0.6 MG TABLET PO SCH ×2 (08:20→08:27)
[2019-06-18] MEDS ORDERED: Aspirin Enteric Coated 81 MG Tablet PO SCH (09:00)
--- NOTE | 2019-06-18 09:47 | Cardiology Progress Note ---
Date of Encounter: 06/18/19 Time of Encounter: 08:00 Assessment and Plan (1) Dyspnea Current Visit: Yes Status: Acute Per cardiology: -Patient reported increased shortness of breath, reports symptom improvement today. -Chest x-ray and repeat with no acute process. -Chest CT with small right pleural effusion. -05/2019 TTE There is a moderate to large circumferential pericardial effusion present largest along the posterior wall of the LV. Echocardiographic signs of impending tamponade (RA and LA chamber collapse, possible RV early diastolic chamber collapse). Pateint underwent pericardial window. -Repeat with LVEF preserved, no wall motion abnormalities noted. -Troponins neagtive x4. -Clinical picture appears infectious. ESR elevated. Fever, pleuritic chest pain. GI consult pending. -No further cardiac work up appears necesarry. Cardiology will sign off, will arrange outpatient follow up. Qualifiers: Dyspnea type: shortness of breath Qualified Code(s): R06.02 - Shortness of breath; R06.00 - Dyspnea, unspecified; R06.01 - Orthopnea (2) Atypical chest pain Current Visit: Yes Status: Acute Per cardiology: -Patient reports atypical, pleuritic chest pain. -ECG with no acute ischemic changes. -Troponins negative x4. -LHC 04/2019 with 70% LM, 70% prox LAD, 25% mid LAD, 25% prox circ, 70% prox RCA, 80% mid RCA. -CABG 04/2019 with [place] to LAD, SVG to OM, SVG to PDA. -TTE as above. -ON asa, Was on BB and statin in outpateint setting. BB has been held due to hypotension. Statin held due to elevated LFTs. -Cholchicine has been added for possible pericarditis. -Recommend resuming BB and statin when able. Discussion w patient/family: The assessment and plan as outlined above was discussed with the patient who expressed understanding and agreement. All questions were answered. Thank you for involving us in the care of your patient. Please call with any questions. Discussed and reviewed with Subjective Principal diagnosis: shortness of breath Interval history: Patient reports shortness of breath is improved, however not back to baseline. Patient also reports fever last night. Reports pleuritic chest pain. Objective Vital Signs, Last 4 Hours Temp Pulse Resp BP Pulse Ox 06/18/19 07:27 97.5 F L 93 14 104/69 97 General: Conversant, No Apparent Distress HEENT: Atraumatic, Normocephaly, Mucus Membranes Moist Neck: No JVD, Normal carotid pulses Cardiac: Reg Rate and Rhythm, Normal S1 and S2, No Murmur Lungs: Normal Breath Sounds, No Wheeze, Rales, Rhonchi Neuro: Alert and responsive, No focal deficits noted Abdomen: Soft, Non-Tender Skin: No rashes noted on visualized skin Musculoskeletal: No Chest Wall Tenderness Extremities: No Clubbing, No Cyanosis, No Edema, Normal Pulses Results 06/18/19 00:10 06/18/19 00:10 Lab Results Impressions Echocardiogram 06/17/19 03:29 Impressions: LVEF 60-65%. Normal LV chamber size and function. Mild left ventricular diastolic dysfunction. Atypical septal motion consistent with post-operative status. Normal right ventricular structure and function. Mild concentric left ventricular hypertrophy. Mild tricuspid regurgitation. No pulmonary hypertension. Left Ventricular Wall Motion: Rest Echo Findings All wall segments showed normal motion. Findings: Study Quality * Technically adequate exam. ECG Findings * Normal sinus rhythm. Left Ventricle * LVEF 60-65%. * Normal LV chamber size and function. * Mild left ventricular diastolic dysfunction. * Atypical septal motion consistent with post-operative status. * Mild concentric left ventricular hypertrophy. Right Ventricle * Normal right ventricular structure and function. Left Atrium * Mildly dilated left atrium. Interatrial Septum * Interatrial septum not well evaluated. Aortic Valve * Aortic valve not well visualized. * No aortic regurgitation. * No aortic stenosis. Mitral Valve * Mildly thickened mitral valve leaflets. * No mitral regurgitation. * No mitral stenosis. Tricuspid Valve * Normal tricuspid valve structure. * Mild tricuspid regurgitation. * No pulmonary hypertension. Pulmonic Valve * Pulmonic valve is not well visualized. * No pulmonic regurgitation. Aorta * Normally sized aortic root. Pericardium * There is a trivial pericardial effusion present. IVC * Normal IVC dimensions and inspiratory collapse. Pulmonary Artery * Pulmonary artery not well visualized. Chest X-Ray 06/17/19 11:22 IMPRESSION: Lungs appear clear. D/ / Mihai Gonzalez / Mihai Gonzalez Interpreting Provider: Mihai Gonzalez Abdomen MRI 06/17/19 12:26 IMPRESSION: 1. Moderate intrahepatic and extrahepatic bile duct dilatation with the common bile duct measuring 8 mm. Findings are not significantly changed since the prior examination of June 29, 2015. No evidence of a filling defect. 2. Status post cholecystectomy. 3. Mild fatty infiltration of the liver. D/ / 06/17/2019 22:44:07 Daniela Veras MD / [email or web address] Interpreting Provider: Daniela Veras MD Active Medications Aspirin (Aspirin Ec) 81 mg PO DAILY NAYELY Stop: 12/18/19 09:01 Last Admin: 06/18/19 08:27 Dose: 81 mg Documented by: Colchicine (Colcrys) 0.6 mg PO BID NAYELY Stop: 12/17/19 12:33 Last Admin: 06/18/19 08:27 Dose: 0.6 mg Documented by: Escitalopram Oxalate (Lexapro) 20 mg PO DAILY NAYELY Stop: 12/17/19 09:01 Last Admin: 06/18/19 08:19 Dose: 20 mg Documented by: Sodium Chloride (0.9 % Sodium Chloride) 1,000 mls @ 100 mls/hr IVC .Q10H [facility] Stop: 12/17/19 18:46 Naloxone HCl (Narcan) 0.4 mg IVP Q2MPRN PRN PRN Reason: SEE COMMENTS Stop: 12/17/19 02:55 Pharmacy Profile Note (Patient Taking Own Medication) 1 each TP QID PRN PRN Reason: Pain Tramadol HCl (Ultram) 50 mg PO Q6HR PRN PRN Reason: Breakthrough Pain Stop: 12/17/19 12:35 Last Admin: 06/17/19 14:08 Dose: 50 mg Documented by: Laboratory Tests 06/16/19 06/16/19 06/17/19 16:45 21:46 07:28 Hgb Creatinine Troponin I < 0.03 < 0.03 < 0.03 06/17/19 06/18/19 06/18/19 11:05 00:10 00:10 Hgb 10.5 L Creatinine 0.77 Troponin I < 0.03 - Imaging and Cardiology Chest Xray: report reviewed Echo: report reviewed Cardiac cath: report reviewed - EKG Interpretation EKG results cardiology: other (Telemetry reviewed with average HR previous 12 hours noted to be 89, SR. PVCs, PACs noted.) - VTE Documentation of Mechanical Device: Intermittent pneumatic compression device Consult Discharge Plan - Plan Referrals: Abi Paulson MD [Primary Care Provider] -
[2019-06-18 10:51] VITALS: BP 111/69
[2019-06-18] MEDS: traMADol 50 MG TABLET PO PRN (12:02)
--- NOTE | 2019-06-18 12:18 | Discharge Summary ---
<Ronnie Bundy N - Last Filed: 06/18/19 16:11> - NOTES TO OUTPATIENT PROVIDER Notes to Outpatient Provider: Presented with Chest pain following past h/o tamponade. Pts cardiac work up essentially negative. Pericarditis is most likely cause with Colchicine started. Pt to have Cardiology f/u outpatient. Pt with elevated LFTs that were worked up by GI and MRCP. LFTs improved. Will need follow up CMP and GI outpatient f/u Date of Encounter: 06/18/19 Time of Encounter: 11:46 - Discharge Diagnosis (1) Acute pericarditis Priority: Primary Status: Acute (2) Chest pain Priority: Secondary Status: Acute Qualifiers: Chest pain type: unspecified Qualified Code(s): R07.9 - Chest pain, unspecified (3) Elevated LFTs Priority: Secondary Status: Acute (4) History of incision of pericardium Priority: Secondary Status: Acute (5) Depression Priority: Secondary Status: Acute Hospital course: Ms. Reyes is a 68 year old female the past medical history significant for CAD with CABG, cardiac tamponade, asthma, fibromyalgia, GERD, hypertension, and cholecystectomy. Patient presented with chest pain radiating to her neck specifically localized to the bilateral collarbones. Upon admission patient was worked up for cardiac causes including chest x-ray, CT angiogram, EKG, echo, and troponins which were all negative. Patient had CMP in ED which showed elevated LFTs and liver ultrasound showed a 1 cm dilation of the common bile duct. GI was consulted and an MRCP was performed. MRCP showed intrahepatic and extrahepatic bile duct dilation with common bile duct of 8 mm, which was unchanged from previous examination in June 2015. Over the next 2 days patient's LFTs have decreased steadily. Due to patient complaining of bilateral collarbone pain x-rays of both shoulders were performed and were essentially negative. In the setting of a previous pericardial window due to tamponade not following CABG as well as low-grade fevers, pain worsening with deep breath, ESR of 63, and CRP of 22 pericarditis was determined as the cause of patient's chest discomfort. Patient was started on colchicine and encouraged to follow-up with primary care doctor in 1 week for recheck and workup of elevated LFTs. Discharge discussed with: patient - Time Spent with Patient Total time spent providing and/or coordinating discharge services: Time spent: Greater than 30 minutes - Discharge Medications Prescriptions: New Colchicine [Colcrys] 0.6 mg PO BID 7 Days #14 tablet Continued Carvedilol 3.125 mg PO BID Zoledronic Acid (Reclast) [Reclast Premix 5 MG/100 ML] 5 mg IV [id number] Aspirin [Lo-Dose Aspirin EC] 81 mg PO DAILY Calcium Carbonate/Vitamin D3 [Calcium 500-Vit D3 200 Caplet] 1 each PO DAILY Escitalopram [Lexapro] 20 mg PO DAILY Lisinopril [Zestril] 40 mg PO DAILY hydroCHLOROthiazide [Hydrochlorothiazide] 25 mg PO DAILY Cholecalciferol (Vitamin D3) [Optimal D3] 50,000 units PO MO Ferrous Sulfate 325 mg PO DAILY Pantoprazole Sodium [Protonix] 40 mg PO DAILY Home Medications: Carvedilol 3.125 mg PO BID 10/02/17 [History] Aspirin [Lo-Dose Aspirin EC] 81 mg PO DAILY 04/10/19 [History] Calcium Carbonate/Vitamin D3 [Calcium 500-Vit D3 200 Caplet] 1 each PO DAILY 04/10/19 [History] Escitalopram [Lexapro] 20 mg PO DAILY 04/10/19 [History] Zoledronic Acid (Reclast) [Reclast Premix 5 MG/100 ML] 5 mg IV [id number] 04/10/19 [History] Lisinopril [Zestril] 40 mg PO DAILY 06/16/19 [History] hydroCHLOROthiazide [Hydrochlorothiazide] 25 mg PO DAILY 06/16/19 [History] Cholecalciferol (Vitamin D3) [Optimal D3] 50,000 units PO MO 06/18/19 [History] Colchicine [Colcrys] 0.6 mg PO BID 7 Days #14 tablet 06/18/19 [Rx] Ferrous Sulfate 325 mg PO DAILY 06/18/19 [History] Pantoprazole Sodium [Protonix] 40 mg PO DAILY 06/18/19 [History] Allergies/Adverse Reactions: Allergy/AdvReac Type Severity Reaction Status Date / Time acetaminophen [From Percocet] AdvReac Nausea Verified 06/18/19 08:26 meperidine [From Demerol] AdvReac Nausea Verified 06/18/19 08:26 oxycodone [From Percocet] AdvReac Nausea Verified 06/18/19 08:26 Date of admission: 06/16/19 22:18 Primary care physician: Abi Paulson MD Consults: 06/17/19 03:31 Consult to Cardiology [CONS] Routine Comment: Consulting Provider: Cardiology [place] Reason for Consult: Chest pain, recent CABG and pericardial window. Call Completed: No 06/17/19 12:26 Consult to Gastroenterology [CONS] Routine Consulting Provider: Gastroenterology [place] Reason for Consult: Elevated LFTs and Liver US showing 1 cm stone in common bile duct post-gaurav Call Completed: No Discharging clinician: Ronnie Bundy - Constitutional Vitals: Temp Pulse Resp BP Pulse Ox 97.7 F 80 16 111/69 100 06/18/19 10:49 06/18/19 10:49 06/18/19 10:49 06/18/19 10:49 06/18/19 10:49 General appearance: Present: cooperative, A&O X 3, pleasant, no acute distress, answers questions appropriately Exam: General appearance: Present: cooperative, A&O X 3, pleasant, no acute distress, answers questions appropriately Head exam: normal inspection. Normocephalic Eye exam: EOMI, normal appearance Respiratory exam: CTAB. Absent: rales, respiratory distress, rhonchi, wheezes Cardiovascular exam: RRR. Absent: diastolic murmur, systolic murmur GI/Abdominal exam: normal bowel sounds, soft. Extremities exam: warm, radial pulses palpable and symmetrical. Absent: calf tenderness, pedal edema, tenderness Neurological exam: No focal deficits, strengths equal and symetr throughout. Absent: motor sensory deficit, facial droop, speech deficit Skin exam: Present: dry, normal color, warm - Patient Status Disposition: Home, Self-Care Condition: Good Functional capacity at discharge: independent ambulation Overall status at discharge: patient is back to baseline - Discharge Instructions Follow Up With: Abi Paulson MD [Primary Care Provider] - 07/07/19 1:30 pm Tanya Driscoll CNP [Advanced Practice Nurse] - (office will call you with an appt) Jet Ferrara MD [Partnered Physician] - 06/22/19 9:50 am Guanako Smith MD [Partnered Physician] - 07/13/19 8:30 am Additional Instructions: Take Colchicine as prescribed and follow up with your primary doctor in 1 week. Follow up with Cardiology and GI doctors as scheduled. - Diet and Activity Activity: increase activity as tolerated Diet: advance to your usual diet - VTE Documentation of Mechanical Device: Intermittent pneumatic compression device <Arslan Terry A - Last Filed: 06/18/19 18:36> Orders not resulted at time of discharge: Pending orders 06/16/19 16:45 Culture,Blood [BC] Stat 06/19/19 04:00 Alkaline Phosphatase Isoenzyme AM 0400 Date of Encounter: 06/18/19 - Discharge Diagnosis (1) DVT prophylaxis Status: Acute (2) Elevated LFTs Status: Acute (3) History of incision of pericardium Status: Acute (4) Chest pain Status: Acute Qualifiers: Chest pain type: unspecified Qualified Code(s): R07.9 - Chest pain, unspecified Hospital course: Ms. Reyes is a 68 year old female - Time Spent with Patient Total time spent providing and/or coordinating discharge services: Date of admission: 06/16/19 22:18 Primary care physician: Abi Paulson MD Consults: 06/17/19 03:31 Consult to Cardiology [CONS] Routine Comment: Consulting Provider: Cardiology [place] Reason for Consult: Chest pain, recent CABG and pericardial window. Call Completed: No 06/17/19 12:26 Consult to Gastroenterology [CONS] Routine Consulting Provider: Gastroenterology [place] Reason for Consult: Elevated LFTs and Liver US showing 1 cm stone in common bile duct post-gaurav Call Completed: No - Constitutional Vitals: Temp Pulse Resp BP Pulse Ox 97.7 F 80 16 111/69 100 06/18/19 10:49 06/18/19 10:49 06/18/19 10:49 06/18/19 10:49 06/18/19 10:49 - Attending Attestation I have seen and independently assessed this patient and I agree with discharge summary as documented Exam Gen. NAD CVS. S1 S2 WNL Resp. 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 GCS 15/15 Plan Chest pain s/p CABG in april 2019 and pericardial window in may 20. Has elevated ESR and CRP and low grade fevers. Likely secondary to pericarditis. started on high dose aspirin which was discontinued by cardiology due to bleeding risk. Complete course of colchicine and follow up with PCP Transaminitis with dilated common bile duct. MRCP showed dilated common bile duct post cholecystectomy. Seen by GI who recommend no ERCP/acute intervention
--- NOTE | 2019-06-18 12:18 | Gastroenterology Consult Note ---
Date of Encounter: 06/18/19 Time of Encounter: 10:00 - Time Spent With Patient Total time spent is greater than 50% in coordination of care (as documented) at patient's floor/unit and/or counseling patient: GI History of Present Illness - Data of Consult Patient: known to practice within the last 3 years Consult date: 06/18/19 Requesting Physician: Amy Fink MD - Consult Narrative Reason for consult: Elevated LFTs History of present illness: Ms. 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 We were consulted to evaluate elevated LFTs. Liver ultrasound completed showed dilated CBD to 1 cm the patient has status post cholecystectomy. MRCP showed moderate intra-/extrahepatic biliar y ductal dilation CBD 8 mm, no filling defect noted. TB went from 0.6 on admission to 0.5 today, AST from 122 to 42. ALT from 145 to 77, AP from 521 to 424. Procedures: EGD 10/11/2016 Dr. Diallo empiric dilation of the esophagus completed. Colonoscopy 06/09/2015 Dr. Diallo: Normal EGD 06/09/2015 Dr. Diallo: Gastritis. EGD 12/19/2010 Dr. Perez: Mild Schatzki ring which was dilated, erosive gastropathy. NSAIDs: ASA Anticoagulation: None A/P 1. Elevated LFTs TB went from 0.6 on admission to 0.5 today, AST from 122 to 42. ALT from 145 to 77, AP from 521 to 424. RUQ US showed dilated CBD to 1 cm. MRCP showed moderate intra-/extrahepatic biliary ductal dilation CBD 8 mm, no filling defect noted. The patient is status post cholecystectomy about 20 years ago. No indication for ERCP at this time. Continue to monitor hepatic panel daily. 2. Elevated alkaline phosphatase level Check alkaline phosphatase isoenzyme Past Med Surg Social Fam HX - Past Medical History Medical history: arthritis, asthma, coronary artery disease, fibromyalgia, GERD, hyperlipidemia, hypertension, thyroid disease, other Additional medical history: Thyroid cysts Psychiatric history: anxiety, depression - Past Surgical History Surgical History: appendectomy, cholecystectomy, coronary bypass (CABG), knee replacement (Right total knee replacement), other (Tubal ligation, right hip ORIF, right knee arthroscopy) Additional surgical history: Tubal, pericardial window, gastric bypass - Social History Smoking Status: Former smoker Smokeless Tobacco Status: No Alcohol use: none Drug use: none - Family History Mother Hx Family Cancer: Yes Hx Family Neuromuscular Disorders: Yes (parkinsons) Father Hx Family Cardiac Disorders: Yes (heart dx) Hx Family Neurologic Disorders: Yes (Dementia) - Gastrointestinal Gastrointestinal: Present: as per HPI - Constitutional Constitutional: as per HPI - EENT Eyes: as per HPI Ears: Present: as per HPI Nose, mouth and throat: Present: as per HPI - Cardiovascular Cardiovascular ROS: Present: as per HPI - Respiratory Respiratory IM: Present: as per HPI - Genitourinary Genitourinary: Absent: change in color, Urinary frequency - Neurological ROS Neurological GI: Present: as per HPI - Hematologic/Lymphatic Hematologic/Lymphatic pediatric: Present: as per HPI - Musculoskeletal Musculoskeletal ROS GI: Present: as per HPI - Integumentary Integumentary GI: Present: as per HPI - Psychiatric ROS Psychiatric GI: Present: as per HPI - Endocrine Endocrine IM: Present: as per HPI - Constitutional Vitals: Temp Pulse Resp BP Pulse Ox 97.7 F 80 16 111/69 100 06/18/19 10:49 06/18/19 10:49 06/18/19 10:49 06/18/19 10:49 06/18/19 10:49 General appearance: Present: cooperative, A&O X 3, no acute distress, answers questions appropriately - Head Head exam: Present: atraumatic, normocephalic - Eye Eye exam: Present: normal appearance, sclera anicteric - ENT ENT exam: Present: mucous membranes moist - Neck Neck exam general surgery: Present: normal inspection, trachea midline - Respiratory Respiratory exam: Present: CTAB. Absent: rales, rhonchi - Cardiovascular Cardiovascular exam: Present: RRR, +S1, +S2 - GI/Abdominal GI/Abdominal exam: Present: soft, no peritoneal signs. Absent: distended, firm, guarding, tenderness - Rectal Rectal exam: Present: deferred - Extremities Exam Extremities exam: Present: warm - Neurological Exam Neurological exam: Present: no focal deficits - Psychiatric Psychiatric exam: Present: normal affect, normal mood - Skin Skin exam: Present: dry, intact, normal color, warm Results - Labs CBC & Chem 7: 06/18/19 00:10 06/18/19 00:10 Labs: Last Result 06/18/19 00:10 Calcium 8.9 Entire Visit 06/18/19 06/18/19 00:10 00:10 Hgb 10.5 L Hct 34.5 L Total Bilirubin 0.5 AST 42 H ALT 77 H - ABG ABG results: PT/INR, D-dimer PT 10.8 Seconds (9.4-12.1) 06/16/19 16:45 - Impressions Impressions Echocardiogram 06/17/19 03:29 Impressions: LVEF 60-65%. Normal LV chamber size and function. Mild left ventricular diastolic dysfunction. Atypical septal motion consistent with post-operative status. Normal right ventricular structure and function. Mild concentric left ventricular hypertrophy. Mild tricuspid regurgitation. No pulmonary hypertension. Left Ventricular Wall Motion: Rest Echo Findings All wall segments showed normal motion. Findings: Study Quality * Technically adequate exam. ECG Findings * Normal sinus rhythm. Left Ventricle * LVEF 60-65%. * Normal LV chamber size and function. * Mild left ventricular diastolic dysfunction. * Atypical septal motion consistent with post-operative status. * Mild concentric left ventricular hypertrophy. Right Ventricle * Normal right ventricular structure and function. Left Atrium * Mildly dilated left atrium. Interatrial Septum * Interatrial septum not well evaluated. Aortic Valve * Aortic valve not well visualized. * No aortic regurgitation. * No aortic stenosis. Mitral Valve * Mildly thickened mitral valve leaflets. * No mitral regurgitation. * No mitral stenosis. Tricuspid Valve * Normal tricuspid valve structure. * Mild tricuspid regurgitation. * No pulmonary hypertension. Pulmonic Valve * Pulmonic valve is not well visualized. * No pulmonic regurgitation. Aorta * Normally sized aortic root. Pericardium * There is a trivial pericardial effusion present. IVC * Normal IVC dimensions and inspiratory collapse. Pulmonary Artery * Pulmonary artery not well visualized. Chest X-Ray 06/17/19 11:22 IMPRESSION: Lungs appear clear. D/ / Mihai Gonzalez / Mihai Gonzalez Interpreting Provider: Mihai Gonzalez Abdomen MRI 06/17/19 12:26 IMPRESSION: 1. Moderate intrahepatic and extrahepatic bile duct dilatation with the common bile duct measuring 8 mm. Findings are not significantly changed since the prior examination of June 29, 2015. No evidence of a filling defect. 2. Status post cholecystectomy. 3. Mild fatty infiltration of the liver. D/ / 06/17/2019 22:44:07 Daniela Veras MD / bcarter Interpreting Provider: Daniela Veras MD Shoulder X-Ray 06/18/19 09:57 IMPRESSION: 1. Normal right shoulder alignment with no acute abnormality or significant arthropathy. 2. Normal left shoulder alignment with no acute abnormality. Mild glenohumeral arthropathy. Findings suggesting chronic rotator cuff tendinopathy. D/ / Renaldo Walls MD / Renaldo Walls MD Interpreting Provider: Renaldo Walls MD Shoulder X-Ray 06/18/19 09:57 IMPRESSION: 1. Normal right shoulder alignment with no acute abnormality or significant arthropathy. 2. Normal left shoulder alignment with no acute abnormality. Mild glenohumeral arthropathy. Findings suggesting chronic rotator cuff tendinopathy. D/ / Renaldo Walls MD / Renaldo Walls MD Interpreting Provider: Renaldo Walls MD Consult Discharge Plan - Plan Referrals: Abi Paulson MD [Primary Care Provider] -
== END 2019-06-18 15:08 | disposition home or self-care (01) ==
LOC: 3NENU 16:04 → EMEROOARM 16:04 → 3NENU 23:08
PROVIDERS: ADMIT Internal Medicine; ATTEND Internal Medicine

== ENCOUNTER 2019-09-02 14:25 | Observation (INO) ==
[2019-09-02] MEDS ORDERED: Ipratropium/Albuterol Neb 3 ML IH ONE (15:25)
[2019-09-02 15:39] LABS: Basophils % 0.5 %; Eosinophils # 0.1 K/mcL (0.0-0.6); Eosinophils % 1.5 %; Hematocrit 35.5 % (35.3-44.9); Hemoglobin 11.4 g/dL (11.5-15.4); Immature Granulocytes % 0.2 % (0-4); Lymphocytes # 1.8 K/mcL (0.6-4.6); Lymphocytes % 32.1 %; Mean Corpuscular HGB Conc 32.1 g/dL (31.6-35.5); Mean Corpuscular Hemoglobin 28.6 pg (28.0-33.3); Mean Platelet Volume 9.8 fL (9.4-12.4); Monocytes # 0.3 K/mcL (0.0-1.3); Monocytes % 5.7 %; Neutrophils # 3.3 K/mcL (1.6-8.9); Platelet Count 240 K/mcL (140-400); Red Blood Count 3.99 M/mcL (3.82-4.97); Red Cell Distribution Width 16.6 % (11.5-14.5); White Blood Count 5.5 K/mcL (4.3-11.1)
[2019-09-02 15:45] LABS: VBG HCO3 27 mEq/L (21-27); VBG PCO2 41 mmHg (41-51); VBG PH 7.43 pH Units (7.32-7.42); VBG PO2 54 mmHg (25-50)
[2019-09-02 16:15] LABS: BUN/Creatinine Ratio 32 (6-26); Blood Urea Nitrogen 23 mg/dL (8-23); Calcium 9.7 mg/dL (8.6-10.3); Carbon Dioxide 27 mEq/L (23-29); Chloride 105 mEq/L (98-107); Glucose 98 mg/dL (70-105); Osmolality,Calculated 290 (280-300); Potassium 3.3 mEq/L (3.5-5.1); Sodium 138 mEq/L (136-145); eGFR For African Americans > 60 (> 60); eGFR For Non-African Americans > 60 (> 60)
[2019-09-02 16:16] LABS: Troponin I < 0.03 ng/mL (< 0.04)
[2019-09-02] MEDS ORDERED: Naloxone 0.4 MG/ML INJ IVP PRN (17:29)
[2019-09-02] MEDS: *HR* Heparin 5,000 UNIT/ML VIAL SQ SCH (20:30)
[2019-09-02] MEDS ORDERED: Aspirin Enteric Coated 81 MG Tablet PO SCH (22:49)
[2019-09-02] MEDS ORDERED: Lisinopril 20 MG TABLET PO SCH (22:55)
[2019-09-03] MEDS: Acetaminophen 325 MG TABLET PO PRN ×2 (00:44→08:42)
[2019-09-03] MEDS ORDERED: traMADol 50 MG TABLET PO ONE (02:42)
[2019-09-03 02:47] LABS: Basophils # 0.1 K/mcL (0.0-0.2); Basophils % 0.8 %; Eosinophils # 0.1 K/mcL (0.0-0.6); Eosinophils % 1.7 %; Hematocrit 35.2 % (35.3-44.9); Hemoglobin 11.3 g/dL (11.5-15.4); Immature Granulocytes % 0.2 % (0-4); Lymphocytes # 2.1 K/mcL (0.6-4.6); Lymphocytes % 34.7 %; Mean Corpuscular HGB Conc 32.1 g/dL (31.6-35.5); Mean Corpuscular Hemoglobin 28.9 pg (28.0-33.3); Mean Platelet Volume 10.3 fL (9.4-12.4); Monocytes # 0.4 K/mcL (0.0-1.3); Monocytes % 6.8 %; Neutrophils # 3.4 K/mcL (1.6-8.9); Platelet Count 223 K/mcL (140-400); Red Blood Count 3.91 M/mcL (3.82-4.97); Red Cell Distribution Width 16.7 % (11.5-14.5); Segmented Neutrophils % 55.8 %
[2019-09-03] MEDS: *HR* Heparin 5,000 UNIT/ML VIAL SQ SCH (02:51)
[2019-09-03 03:09] LABS: BUN/Creatinine Ratio 38 (6-26); Blood Urea Nitrogen 31 mg/dL (8-23); Calcium 9.5 mg/dL (8.6-10.3); Carbon Dioxide 28 mEq/L (23-29); Chloride 107 mEq/L (98-107); Glucose 99 mg/dL (70-105); Osmolality,Calculated 295 (280-300); Potassium 3.7 mEq/L (3.5-5.1); Sodium 139 mEq/L (136-145); eGFR For African Americans > 60 (> 60); eGFR For Non-African Americans > 60 (> 60)
[2019-09-03 07:34] VITALS: BP 101/64
[2019-09-03] MEDS ORDERED: Budesonide/Formoterol 160/4.5 1 PUFF INH IH SCH (10:00)
[2019-09-03] MEDS ORDERED: hydroCHLOROthiazide 25 MG TABLET PO SCH (21:00)
== END 2019-09-03 12:45 | disposition home or self-care (01) ==
LOC: SUATTDRO → EMEROOARM 14:25 → 3BNU 14:25
PROVIDERS: ADMIT Internal Medicine; ATTEND Internal Medicine

== ENCOUNTER 2022-03-26 09:45 | Observation (INO) ==
[2022-03-26] MEDS ORDERED: 0.9 % Sodium Chloride 1,000 ML ONE ×2 (10:11→11:03)
[2022-03-26] MEDS ORDERED: Heparin 1,000 UNITS/500 mL 500 ML ONE ×2 (11:03→11:55)
[2022-03-26] MEDS ORDERED: *HR* Heparin 10,000 UNIT/10 ML VIAL ONE (11:03)
[2022-03-26] MEDS ORDERED: ISOVUE-370 200 ML INFUS..BTL ONE ×2 (11:03→12:20)
[2022-03-26] MEDS ORDERED: Nitroglycerin 1,000 MCG/5 ML VIAL IV ONE (11:03)
[2022-03-26] MEDS ORDERED: *HR* FentaNYL (PF) 100 MCG/2 ML VIAL ONE (11:18)
[2022-03-26] MEDS ORDERED: *HR* Midazolam HCl 2 MG/2 ML VIAL ONE (11:18)
[2022-03-26] MEDS ORDERED: Tirofiban 12.5 MG/250ML 12.5 MG/250 ML BAG ONE (11:41)
[2022-03-26] MEDS ORDERED: Topiramate 25 MG TABLET PO PRN (12:59)
[2022-03-26] MEDS ORDERED: Tirofiban 12.5 MG/250ML 12.5 MG/250 ML BAG IVC SCH (13:00)
[2022-03-26] MEDS ORDERED: Ergocalciferol (VIT D2) 50,000 UNIT (1.25MG) CAP PO SCH (13:00)
[2022-03-26] MEDS: Acetaminophen 325 MG TABLET PO SCH ×2 (17:50→23:09)
[2022-03-26] MEDS: Methylphenidate HCl 10 MG TABLET PO SCH (17:53)
[2022-03-26] MEDS: lisinopriL 20 MG TABLET PO SCH (20:41)
[2022-03-26] MEDS: Aspirin Enteric Coated 81 MG Tablet PO SCH (20:41)
[2022-03-26] MEDS: *HR* Ticagrelor 90 MG TABLET PO SCH (20:41)
[2022-03-26] MEDS ORDERED: hydroCHLOROthiazide 25 MG TABLET PO SCH (21:00)
[2022-03-27 04:58] LABS: Hematocrit 34.3 % (35.3-44.9); Hemoglobin 10.8 g/dL (11.5-15.4)
[2022-03-27] MEDS: Acetaminophen 325 MG TABLET PO SCH ×3 (05:04→17:42)
[2022-03-27 05:34] LABS: BUN/Creatinine Ratio 26 (6-26); Blood Urea Nitrogen 23 mg/dL (8-23); eGFR For African Americans > 60 (> 60); eGFR For Non-African Americans > 60 (> 60)
[2022-03-27] MEDS: Methylphenidate HCl 10 MG TABLET PO SCH ×3 (08:19→17:44)
[2022-03-27] MEDS: FLUoxetine 20 MG CAPSULE PO SCH (08:19)
[2022-03-27] MEDS: Prenatal Vit/FA 1 EACH TABLET PO SCH (08:19)
[2022-03-27] MEDS: carvediloL 6.25 MG TABLET PO SCH (08:21)
[2022-03-27] MEDS: *HR* Ticagrelor 90 MG TABLET PO SCH ×2 (08:21→20:08)
[2022-03-27] MEDS: Furosemide 20 MG TABLET PO SCH (08:21)
[2022-03-27] MEDS: *HR* Heparin 5,000 UNIT/ML VIAL SQ SCH (17:44)
[2022-03-27] MEDS: Aspirin Enteric Coated 81 MG Tablet PO SCH (20:08)
[2022-03-27] MEDS: lisinopriL 20 MG TABLET PO SCH (20:08)
[2022-03-28] MEDS: Acetaminophen 325 MG TABLET PO SCH ×2 (00:47→05:40)
[2022-03-28] MEDS: *HR* Heparin 5,000 UNIT/ML VIAL SQ SCH (05:40)
[2022-03-28 06:18] LABS: BUN/Creatinine Ratio 34 (6-26); Blood Urea Nitrogen 33 mg/dL (8-23); Calcium 9.5 mg/dL (8.6-10.3); Carbon Dioxide 29 mEq/L (23-29); Chloride 104 mEq/L (98-107); Glucose 106 mg/dL (70-105); Osmolality,Calculated 296 (280-300); Potassium 4.3 mEq/L (3.5-5.1); Sodium 139 mEq/L (136-145); eGFR For African Americans > 60 (> 60); eGFR For Non-African Americans 57 (> 60)
[2022-03-28 06:37] LABS: Basophils % 0.6 %; Eosinophils # 0.2 K/mcL (0.0-0.6); Hematocrit 35.2 % (35.3-44.9); Hemoglobin 11.2 g/dL (11.5-15.4); Immature Granulocytes % 0.2 % (0-4); Lymphocytes # 1.3 K/mcL (0.6-4.6); Lymphocytes % 27.3 %; Mean Corpuscular HGB Conc 31.8 g/dL (31.6-35.5); Mean Corpuscular Hemoglobin 28.6 pg (28.0-33.3); Mean Corpuscular Volume 89.8 fL (83.0-100.0); Mean Platelet Volume 10.1 fL (9.4-12.4); Monocytes # 0.5 K/mcL (0.0-1.3); Monocytes % 9.7 %; Neutrophils # 2.8 K/mcL (1.6-8.9); Platelet Count 203 K/mcL (140-400); Red Blood Count 3.92 M/mcL (3.82-4.97); Red Cell Distribution Width 14.1 % (11.5-14.5); Segmented Neutrophils % 57.2 %; White Blood Count 4.8 K/mcL (4.3-11.1)
[2022-03-28 06:59] VITALS: TEMP 97.8
[2022-03-28] MEDS: Methylphenidate HCl 10 MG TABLET PO SCH (09:01)
[2022-03-28] MEDS: carvediloL 6.25 MG TABLET PO SCH (09:02)
[2022-03-28] MEDS: *HR* Ticagrelor 90 MG TABLET PO SCH (09:02)
[2022-03-28] MEDS: FLUoxetine 20 MG CAPSULE PO SCH (09:02)
[2022-03-28] MEDS: Furosemide 20 MG TABLET PO SCH (09:02)
[2022-03-28] MEDS: Prenatal Vit/FA 1 EACH TABLET PO SCH (09:03)
[2022-03-28] MEDS ORDERED: Nitroglycerin 0.4 MG TAB.SUBL SL PRN (10:02)
[2022-03-28 10:34] VITALS: BP 103/66; PULSE 77; O2SAT 97
[2022-03-28] MEDS ORDERED: lisinopriL 20 MG TABLET PO SCH (21:00)
== END 2022-03-28 13:34 | disposition home or self-care (01) ==
LOC: 3BNU 09:45 → INVDIALAB 09:45 → 3BNU 12:42
PROVIDERS: ADMIT Internal Medicine Cardiovascular Disease; ATTEND Internal Medicine Cardiovascular Disease